=== PATIENT | male | born 1955 | race African-American/Black ===

== ENCOUNTER 2023-04-23 16:19 | Inpatient (IN) ==
[2023-04-23 16:48] LABS: Appearance Urine Clear (Clear); Bilirubin Urine Negative (Negative); Blood Urine 1+ (Negative); Color Urine Yellow; Glucose Urine UA Negative (Negative); Ketones Urine Negative (Negative); Leukocyte Esterase Urine Negative (Negative); Nitrite Urine Negative (Negative); Protein Urine 2+ (Negative); Specific Gravity Urine 1.015 (1.000-1.030); Urobilinogen Urine Negative (Negative)
[2023-04-23 16:54] LABS: Basophils # (auto) 0.02 K/uL (0.00-0.20); Basophils % (auto) 0.3 %; Eosinophils # (auto) 0.33 K/uL (0.00-0.50); Eosinophils % (auto) 5.6 %; Hematocrit (blood only) 26.9 % (42.0-52.0); Hemoglobin 8.5 g/dl (14.0-18.0); Immature Granulocytes # (auto) 0.01 K/uL (0.01-0.20); Immature Granulocytes % (auto) 0.2 %; Lymphocytes # (auto) 2.15 K/uL (1.20-3.40); Lymphocytes % (auto) 36.7 %; Mean Corpuscular Hemoglobin 29.9 pg (25.0-34.0); Mean Corpuscular Hgb Conc 31.6 g/dL (32.0-36.0); Mean Corpuscular Volume 94.7 fL (80.0-100.0); Mean Platelet Volume 10.9 fL (9.4-12.4); Monocytes # (auto) 0.46 K/uL (0.11-0.59); Monocytes % (auto) 7.8 %; Neutrophils # (auto) 2.89 K/uL (1.40-6.50); Neutrophils % (auto) 49.4 %; Platelet Count 273 K/uL (130-400); RDW Standard Deviation 41.9 fL (36.4-46.3); Red Blood Count 2.84 M/uL (4.70-6.10); White Blood Count 5.86 K/ul (4.8-10.8)
[2023-04-23 16:59] LABS: Bacteria Urine Negative (Negative); Epithelial Cell Urine 0-5 /lpf (0-5); Hyaline Casts Urine 0-5 /lpf (0-5); RBC Urine 0-4 /hpf (0-4); WBC Urine 0-5 /hpf (0-5)
[2023-04-23 17:12] LABS: Albumin Level 4.3 gm/dl (3.4-5.0); BUN Creatinine Ratio 9.4 (10-20); Bilirubin,Total 0.3 mg/dl (0.2-1.0); Calcium 8.5 mg/dl (8.6-10.3); Creatinine Clr Calc Pharmacy 7.2 ml/min; Est GFR (African American) 5.6 ml/min; Est GFR (Non-African American) 4.8 ml/min; Globulin 4.1 gm/dl (2.5-4.0); Potassium 5.1 mmol/L (3.5-5.1); Total Protein 8.4 gm/dl (6.0-8.3)
--- NOTE | 2023-04-23 17:35 | Emergency Department Note ---
Impression & Plan Acute renal failure (ARF) ED Provider Note Provider: Tom Teague MD DATE OF SERVICE: 04/23/2023 CHIEF COMPLAINT: Abnormal blood work HISTORY OF PRESENT ILLNESS: Patient is a 68-year-old gentleman history of hypertension noted here recently from [place]. Evidently had some abnormal kidney blood work about 5 months ago but blood work was done in [facility]. Established with [facility] PCP today. On last week or 2 his had some pain in the right ankle but this is abating. Has been using [id number] Aleve. Hydrating well. Maybe a bit of urinary frequency. Had some baseline outpatient blood work completed today. Referred in due to elevated potassium and creatinine. Denies any abdominal pain or back pain. Denies any swelling or breathing issues. 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 PERRL with a mildly disconjugate gaze. NECK: Trachea midline. ENT: Mucous membranes pink and moist. LUNGS: Airway patent. No retractions. Breath sounds clear HEART: Regular rate and rhythm. No chest wall tenderness ABDOMEN: Soft and non-tender, without guarding or rebound. No flank tenderness. SKIN: Acyanotic, warm, dry, without rashes EXTREMITIES: Without swelling, tenderness or deformity NEUROLOGICAL: No focal deficits. No aphasia. No facial droop or slurred speech. Ambulatory. EK bpm normal sinus rhythm. QTc 412. No PVC or PAC. Appears to be early repolarization without reciprocal ST depression with some slight elevation V2 V3 V4. CONTINUOUS CARDIAC MONITORING: was ordered and showed a heart rate of 60s-70s bpm in normal sinus with Patient's laboratory studies and imaging reviewed. Differential includes Renal colic, nephrotic syndrome, nephritis, CKD, UTI, appendicitis, diverticulitis, mesenteric ischemia, aortic pathology, infections, inflammatory bowel disease, PUD, biliary pathology, as well as other pathologies. IMPRESSION/MEDICAL DECISION MAKING: Right ankle without tenderness. No trauma history reported here. No swelling. Doubt DVT. No evidence of fluid overload. Doubt septic joint. Question if his MSK related now has improved. It has improved with naproxen but discussed with him and need to avoid given his significant renal dysfunction which is double checked here. Testing here 5.1 somewhat improved from outpatient labs. Sent for ultrasound to evaluate for any obstructive pathology and further evaluate the renal parenchyma. Do not see need for emergent dialysis but will need further workup for his significant renal dysfunction with creatinine of 10. Bicarb mildly low at 19. Benign abdomen. Discussed with [facility] nephrology and reviewed the labs. Will obtain chest x- ray further recommendation. No significant abnormality noted. Again we will hold losartan and consider amlodipine 10 mg tonight with normal saline drip at 75 mL an hour for hydration. Nephrology recommended this as well as admission. Hospitalist team contacted. Ultrasound of the kidneys pending at this time to evaluate the kidneys and look for obstructive pathology. DIAGNOSIS: Acute renal failure DISPOSITION: Hospitalist will evaluate Patient was agreeable with this plan. Past Med/Surg History Medical History (Updated 04/23/23 @ 21:28 by Tom Teague M.D.) Anemia Sickle cell trait Gout HTN (hypertension) Surgical History (Updated 04/23/23 @ 19:19 by Steph Mace PA-C) No pertinent past surgical history Family History (Updated 04/23/23 @ 19:18 by Steph Mace PA-C) Father Alive and well Social History (Updated 04/23/23 @ 19:18 by Steph Mace PA-C) Smoking Status: Never smoker Hx Alcohol Use: Yes Alcohol Intake Frequency Comment: rare Hx Substance Use: No Preferred Language: Latvian Communication Ability Comment: From [facility] marital status: Current Living Situation: Spouse Feels Safe at Home: Yes Allergies Allergies Allergy/AdvReac Type Severity Reaction Status Date / Time No Known Allergies Allergy Unverified 04/23/23 18:07 Home Meds Home Medications Medication Instructions Recorded Confirmed losartan 50 mg-hydrochlorothiazide 1 tab PO DAILY 04/23/23 04/23/23 12.5 mg tablet naproxen sodium 220 mg capsule 220 mg PO BID PRN Pain 04/23/23 04/23/23 Results & Data (ED) Vital Signs Vital Signs - 24 hr 04/23/23 16:24 04/23/23 17:29 04/23/23 17:37 Temperature 36.6 C Temperature Source Temporal Artery Scan Pulse Rate 74 67 Pulse Rate [Apical] 68 Pulse Rate from SpO2 Sensor Pulse Rhythm [Apical] Regular Respiratory Rate 18 18 Respiratory Effort / Characteristics Non-Labored Spontaneous Respiratory Depth Normal Respiratory Pattern Regular Blood Pressure 175/96 H Blood Pressure [Right Arm] 158/95 H Blood Pressure Mean 122 Blood Pressure Mean [Right Arm] 116 Pulse Oximetry 100 100 Oxygen Delivery Method Room Air Room Air Sepsis Recent Fever Within 48 Hours No Sepsis New/Unexplained Change in Mental Status N/A Sepsis Action Taken by Nursing No Action Required 04/23/23 17:38 04/23/23 18:00 Temperature Temperature Source Pulse Rate 68 70 Pulse Rate [Apical] Pulse Rate from SpO2 Sensor 68 70 Pulse Rhythm [Apical] Respiratory Rate 17 16 Respiratory Effort / Characteristics Respiratory Depth Respiratory Pattern Blood Pressure Blood Pressure [Right Arm] Blood Pressure Mean Blood Pressure Mean [Right Arm] Pulse Oximetry 100 100 Oxygen Delivery Method Sepsis Recent Fever Within 48 Hours Sepsis New/Unexplained Change in Mental Status Sepsis Action Taken by Nursing Laboratory Data 04/23/23 16:36 04/23/23 16:36 Lab Results 04/23/23 04/23/23 Range/Units 16:36 16:40 WBC 5.86 (4.8-10.8) K/ul RBC 2.84 L (4.70-6.10) M/uL Hgb 8.5 L (14.0-18.0) g/dl Hct 26.9 L (42.0-52.0) % MCV 94.7 (80.0-100.0) fL MCH 29.9 (25.0-34.0) pg MCHC 31.6 L (32.0-36.0) g/dL RDW Std Deviation 41.9 (36.4-46.3) fL RDW Coeff of Tomasz 12.0 (11.5-14.5) % Plt Count 273 (130-400) K/uL MPV 10.9 (9.4-12.4) fL Immature Gran % (Auto) 0.2 % Neut % (Auto) 49.4 % Lymph % (Auto) 36.7 % [place] % (Auto) 7.8 % Eos % (Auto) 5.6 % Baso % (Auto) 0.3 % Neut # (Auto) 2.89 (1.40-6.50) K/uL Lymph # (Auto) 2.15 (1.20-3.40) K/uL [place] # (Auto) 0.46 (0.11-0.59) K/uL Eos # (Auto) 0.33 (0.00-0.50) K/uL Baso # (Auto) 0.02 (0.00-0.20) K/uL Immature Gran # (Auto) 0.01 (0.01-0.20) K/uL Sodium 138 (136-145) mmol/L Potassium 5.1 (3.5-5.1) mmol/L Chloride 107 (98-107) mmol/L Carbon Dioxide 19 L (21-32) mmol/L Anion Gap 12 H (3-11) BUN 94 H (6-23) mg/dl Creatinine 10.01 H* (0.6-1.4) mg/dl Est Cr Clr Drug Dosing 7.2 ml/min Est GFR ( Amer) 5.6 ml/min Est GFR (Non-Af Amer) 4.8 ml/min BUN/Creatinine Ratio 9.4 L (10-20) Glucose 152 H (70-99(Fasting)) mg/dl Calcium 8.5 L (8.6-10.3) mg/dl Iron 65 (35-175) mcg/dl Unsaturated IBC 174 (155-355) mcg/dl Transferrin 169 L (200-360) mg/dl Ferritin 318.4 (8-388) ng/ml Total Bilirubin 0.3 (0.2-1.0) mg/dl AST 11 L (13-39) U/L ALT 9 (7-52) U/L Alkaline Phosphatase 155 H (34-104) U/L Total Protein 8.4 H (6.0-8.3) gm/dl Albumin 4.3 (3.4-5.0) gm/dl Globulin 4.1 H (2.5-4.0) gm/dl Albumin/Globulin Ratio 1.0 (0.9-2) Lipase 181 H (11-82) U/L Vitamin B12 274 (180-914) pg/ml Folate 9.41 (>5.38) ng/ml Urine Color Yellow Urine Appearance Clear (Clear) Urine pH 6.0 (4.5-7.5) Ur Specific [place] 1.015 (1.000-1.030) Urine Protein 2+ H (Negative) Urine Glucose (UA) Negative (Negative) Urine Ketones Negative (Negative) Urine Blood 1+ H (Negative) Urine Nitrite Negative (Negative) Urine Bilirubin Negative (Negative) Urine Urobilinogen Negative (Negative) Ur Leukocyte Esterase Negative (Negative) Urine RBC 0-4 (0-4) /hpf Urine WBC 0-5 (0-5) /hpf Ur Epithelial Cells 0-5 (0-5) /lpf Urine Bacteria Negative (Negative) Hyaline Casts 0-5 (0-5) /lpf Ur Random Creatinine 99.8 mg/dl U Random Total Protein 103.0 H (0-11.9) mg/dl Protein/Creatinin Ratio 1.0 H (0-0.2) Administered Medications Sodium Chloride (Nss) 1,000 mls @ 75 mls/hr IV .[id number] JOAQUIN Stop: 05/23/23 17:44 Last Admin: 04/23/23 17:54 Dose: 75 mls/hr Documented By: FRANTZ Discontinued Medications Amlodipine Besylate (Amlodipine Besylate 5 Mg Tab) 5 mg PO NOW ONE Stop: 04/23/23 19:18 Last Admin: 04/23/23 19:37 Dose: 5 mg Documented By: FRANTZ Imaging Data Radiologist's Impression: Chest X-Ray 04/23/23 17:43 XR chest 1V portable HISTORY: Acute renal failure. COMPARISON: None. FINDINGS: The lungs are clear. The cardiac silhouette is top normal in size. There are low lung volumes. No pleural effusions. No pneumothorax. IMPRESSION: No acute process. ACT 112: Negative or not required by law. Electronically signed by: Armando Gill M.D. 04/23/2023 7:19 PM Discharge Plan Visit Data Chief Complaint: Abnormal Labs/Diagnostic Testing Stated Complaint: HAD LABS DONE, ABNORMAL RESULTS, RT LEG PAIN ED Provider: Tom Teague Discharge Problem: Acute renal failure (ARF) Patient Disposition: Being Evaluated by Hospitalist Discharge Instructions Interventions: ED Discharge Assessment Last Done: 04/23/23 21:20 Discharge Problem: Acute renal failure (ARF) Qualifiers: Acute renal failure type: unspecified Qualified Code(s): N17.9 - Acute kidney failure, unspecified
[2023-04-23] MEDS: SODIUM CHLORIDE 0.9% 1,000 ML IV SCH (17:54)
--- NOTE | 2023-04-23 18:29 | History & Physical Report ---
Date of Service April 23, 2023 Assessment & Plan (1) Acute renal failure (ARF): (2) Anemia: (3) HTN (hypertension): (4) Sickle cell trait: Plan This is a 68-year-old male who has significant past medical history of HTN, sickle cell carrier and gout who presents to ED at referral of PCP due to JASON. Acute Renal Failure admit to med tele uncertain etiology suspect intrinsic cause vs medical renal disease but will r/o other etiologies Obtain urine prot/cr, SPEP, UPEP, ANCA serologies obtain Renal US and Renal Duplex to r/o obstructive etiology and RAMIRO repeat UA in am to eval for blood consult nephrology Will D/C Losartan/HCTZ and avoid NSAIDS IVF 75cc/hr as directed by nephrology initiate amlodipine for blood pressure control making urine, no signs of uremia Anemia anemia panel ordered and pending suspect related to underlying renal disease HTN elevated in ED d/c losartan/hctz initiate amlodipine, monitor Sickle Cell Trait Hyperglycemia on admitting, nonfasting labs obtain a1c and lipid panel in a.m. DVT ppx: SQ Heparin FULL CODE Dispo: expect pt to remain hospitalized while JASON work up in progress PCP: DR. Raissa Metcalf Pt was seen and examined in collaboration with Dr. Carlisle, please see addendum A total of 76 minutes was spent coordinating, documenting, and providing care for this patient excluding time spent in the performance of separately billed services. This included personally viewing all current laboratories and imaging studies, medication reconciliation, outpatient chart review, and discussion with specialists. History of Present Illness Chief Complaint: Referred by PCP due to JASON Primary Care Provider: Dr. Raissa Valenzuela This is a 68-year-old male who has significant past medical history of HTN, sickle cell carrier and gout who presents to ED at referral of PCP due to JASON. Patient and his are from [facility]. They are currently in the [place] while his works on her post doctorate in [employer]. He came over to the [place] 1 month ago. states approximately 5 months ago they were told his kidneys were, "not right." They were lost to follow-up as for the past 3 months they have been in [place] taking care of their son who required bone marrow bx. He has been feeling well as of late. 2 weeks ago he was having right ankle and foot pain and therefore his picked up an [id number] bottle of naproxen that he was using as needed for pain. He denies any fever, chills, sweats, lightheadedness, dizziness, weight loss, chest pain, shortness of breath, nausea, vomiting, abdominal pain, dysuria, melena, hematochezia, hematuria, diarrhea or constipation. In ED patient had a notable anemia for 8.5 and 26.9. His chemistry panel was abnormal including a BUN of 94, creatinine 10.01, anion gap 12, glucose 152, calcium 8.5, total protein high at 8.4, globulin gap elevated at 4.1 and urinalysis consistent with protein and blood. Allergies Allergy/AdvReac Type Severity Reaction Status Date / Time No Known Allergies Allergy Unverified 04/23/23 18:07 Home Medications Medication Instructions Recorded Confirmed Type losartan 50 mg-hydrochlorothiazide 1 tab PO DAILY 04/23/23 04/23/23 History 12.5 mg tablet naproxen sodium 220 mg capsule 220 mg PO BID PRN Pain 04/23/23 04/23/23 History Past Med/Surg History Medical History (Updated 04/24/23 @ 16:59 by Penelope Randall MD, PhD) Anemia Sickle cell trait Gout HTN (hypertension) Surgical History (Updated 04/23/23 @ 19:19 by Steph Mace PA-C) No pertinent past surgical history Family History (Updated 04/23/23 @ 19:18 by Steph Mace PA-C) Father Alive and well Social History (Updated 04/23/23 @ 19:18 by Steph Mace PA-C) Smoking Status: Never smoker Hx Alcohol Use: Yes Alcohol Intake Frequency Comment: rare Hx Substance Use: No Preferred Language: Indonesian Communication Ability: Effective Communication Ability Comment: From [facility] 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 Required: No Beliefs That Will Affect Care: None marital status: Current Living Situation: Spouse Feels Safe at Home: Yes Safety Concerns: Feels Safe At This Time Assistive Devices: Glasses Review of Systems Review of Systems: All systems reviewed & are unremarkable except as noted in HPI & below Physical Exam Physical Exam: Constitutional: WD/WN, vitals as above, NAD, sitting up in bed, pleasant, conversing easily Head: Normocephalic, Atraumatic Eyes: PERRL, conjunctivae normal, anicteric sclerae ENMT: external ear and nose normal, oropharynx normal Neck: trachea midline, no thyromegaly normal visual inspection Respiratory: normal respiratory effort, lungs clear to auscultation, no wheeze, rales, rhonchi. Normal insp/exp effort, no accessory muscle use Cardiovascular: RRR, no murmur, no edema Vessels: no JVD or carotid bruit Chest: normal inspection of chest Abdomen: Protuberant, normal bowel sounds, soft, nontender, no hepatosplenomegaly Musculoskeletal: no cyanosis or clubbing, extremities motor strength 5/5 Skin: no rashes, warm and dry normal turgor Neurologic: PERRL, EOMI, accommodation nl, no face palsy, no dysarthria CN's II-XI intact bilaterally and moves all extremities Psychiatric: A+Ox3, euthymic affect Lymphatic: no cervical or axillary lymphadenopathy : deferred Results & Data Results & Data Vital Signs (Past 12 Hours) Vital Signs Temp Pulse Pulse Resp BP BP Pulse Ox 04/23/23 17:37 67 04/23/23 17:29 68 18 158/95 H 100 04/23/23 16:24 36.6 C 74 18 175/96 H 100 O2 Del Method 04/23/23 17:37 04/23/23 17:29 Room Air 04/23/23 16:24 Room Air Laboratory Results I have independently reviewed and interpreted patient's admitting labs including CBC, CMP, lipase, UA. Medications Administered Medication List Sodium Chloride (Nss) 1,000 mls @ 75 mls/hr IV .[id number] JOAQUIN Stop: 05/23/23 17:44 Last Admin: 04/23/23 17:54 Dose: 75 mls/hr Documented By: FRANTZ ECG Rate (beats per minute): 68 Rhythm: normal sinus Additional Comments: elevated j point v2-4 COVID-19 Results Results COVID-19 Adm Lab Results: RBC 2.41 M/uL (4.70-6.10) L 04/24/23 WBC 5.09 K/ul (4.8-10.8) 04/24/23 Hgb 7.2 g/dl (14.0-18.0) L 04/24/23 Hct 22.5 % (42.0-52.0) L 04/24/23 Plt Count 229 K/uL (130-400) 04/24/23 Neutrophils (%) (Auto) 60.5 % 04/24/23 Lymphocytes (%) (Auto) 23.0 % 04/24/23 Monocytes # (Auto) 0.50 K/uL (0.11-0.59) 04/24/23 Eosinophils # (Auto) 0.30 K/uL (0.00-0.50) 04/24/23 Immature Granulocyte % (Auto) 0.4 % 04/24/23 Neutrophils # (Auto) 3.08 K/uL (1.40-6.50) 04/24/23 Lymphocytes # (Auto) 1.17 K/uL (1.20-3.40) L 04/24/23 Monocytes # (Auto) 0.50 K/uL (0.11-0.59) 04/24/23 Eosinophils # (Auto) 0.30 K/uL (0.00-0.50) 04/24/23 Basophils # (Auto) 0.02 K/uL (0.00-0.20) 04/24/23 Immature Granulocyte # (Auto) 0.02 K/uL (0.01-0.20) 4 Red Blood Cell Morphology Unremarkable 04/24/23 Na 138 mmol/L (136-145) 04/24/23 K 4.8 mmol/L (3.5-5.1) 04/24/23 Cl 109 mmol/L (98-107) H 04/24/23 CO2 18 mmol/L (21-32) L 04/24/23 Anion Gap 11 (3-11) 04/24/23 BUN 97 mg/dl (6-23) H 04/24/23 Creatinine 9.88 mg/dl (0.6-1.4) H* 04/24/23 BUN/Creatinine Ratio 9.8 (10-20) L 04/24/23 Glucose Level 85 mg/dl (70-99(Fasting)) 04/24/23 Ca 8.1 mg/dl (8.6-10.3) L 04/24/23 Phosphorus Level 5.6 mg/dl (2.5-4.9) H 04/24/23 Total Bilirubin 0.3 mg/dl (0.2-1.0) 04/24/23 AST/SGOT 11 U/L (13-39) L 04/24/23 ALT/SGPT 9 U/L (7-52) 04/24/23 Alkaline Phosphatase 138 U/L (34-104) H 04/24/23 Total Protein 7.2 gm/dl (6.0-8.3) 04/24/23 Albumin 3.7 gm/dl (3.4-5.0) 04/24/23 Globulin 3.5 gm/dl (2.5-4.0) 04/24/23 Albumin/Globulin Ratio 1.1 (0.9-2) 04/24/23 Ferritin 318.4 ng/ml (8-388) 04/23/23 Triglycerides Level 97 mg/dl (0-150) 04/24/23 Chest X-Ray 04/23/23 Code Status & VTE Plan Code Status FULL CODE VTE Prophylaxis Plan VTE Prophylaxis will be ordered: Yes Supervising Physician Co-Signing Physician Notes delayed entry date of service noted above Attending Addendum: care coordinated with JANELLE Mace please refer to her notes for full details, I agree with her notes patient seen and examined, records reviewed by myself as well diagnoses and plan of care as per JANELLE Mace's notes Dax Carlisle MD (1) Acute renal failure (ARF) Acute renal failure type: unspecified Qualified Code(s): N17.9 - Acute kidney failure, unspecified
[2023-04-23] MEDS ORDERED: amLODIPine BESYLATE 5 MG TAB PO ONE (19:17)
--- NOTE | 2023-04-23 19:21 | XRay Report ---
XR chest 1V portable HISTORY: Acute renal failure. COMPARISON: None. FINDINGS: The lungs are clear. The cardiac silhouette is top normal in size. There are low lung volum es. No pleural effusions. No pneumothorax. IMPRESSION: No acute process. ACT 112: Negative or not required by law. Electronically signed by: Armando Gill M.D. 04/23/2023 7:19 PM
[2023-04-23 19:29] LABS: Ferritin 318.4 ng/ml (8-388)
[2023-04-23 19:32] LABS: Folate (Folic Acid),Ser orPlas 9.41 ng/ml (>5.38)
[2023-04-23 20:32] LABS: Creatinine Urine Random 99.8 mg/dl
[2023-04-23] MEDS ORDERED: POLYETHYLENE (MIRALAX) 17 GM PACK PO PRN (21:21)
[2023-04-23] MEDS ORDERED: ONDANSETRON INJ 2 MG/ML 2 ML VIAL IV PRN (21:21)
[2023-04-23] MEDS ORDERED: ACETAMINOPHEN 325 MG TAB PO PRN (21:21)
[2023-04-23] MEDS: HEPARIN SOD 5,000 UNIT/0.5 ML VIAL SQ SCH (22:49)
--- NOTE | 2023-04-24 03:43 | Ultrasound Report ---
Exam(s): US RENAL EXAM: US Retroperitoneal Limited, Renal CLINICAL HISTORY: Renal failure. TECHNIQUE: Real-time limited ultrasound of the retroperitoneum with image documentation. COMPARISON: No relevant prior studies available. FINDINGS: Right kidney: The right kidney measures 10 cm. There is increased echogenicity of the right kidney. There is a simple appearing right renal cyst, no follow-up is needed. No stones. No hydronephrosis. Left kidney: There is increase echogenicity of the left kidney. The left kidney measures 9.6 cm. There is a small amount of nonspecific left perinephric fluid. Simple appearing left renal cysts are present, no follow-up is needed. No stones. Other findings: Incidentally noted fatty infiltration of the liver. IMPRESSION: 1. No hydronephrosis. 2. Increased echogenicity of the cortex of the kidneys is most consistent with chronic medical renal disease. 3. There is a small amount of nonspecific left perinephric fluid. 4. Incidentally noted fatty infiltration of the liver. Electronically signed by: Hazel Hamilton MD 04/24/23 03:42 AM
[2023-04-24 05:20] LABS: Basophils # (auto) 0.02 K/uL (0.00-0.20); Basophils % (auto) 0.4 %; Eosinophils % (auto) 5.9 %; Hematocrit (blood only) 22.5 % (42.0-52.0); Hemoglobin 7.2 g/dl (14.0-18.0); Immature Granulocytes # (auto) 0.02 K/uL (0.01-0.20); Immature Granulocytes % (auto) 0.4 %; Lymphocytes # (auto) 1.17 K/uL (1.20-3.40); Mean Corpuscular Hemoglobin 29.9 pg (25.0-34.0); Mean Corpuscular Volume 93.4 fL (80.0-100.0); Mean Platelet Volume 10.9 fL (9.4-12.4); Monocytes % (auto) 9.8 %; Neutrophils # (auto) 3.08 K/uL (1.40-6.50); Neutrophils % (auto) 60.5 %; Platelet Count 229 K/uL (130-400); RDW Coefficient of Variation 11.9 % (11.5-14.5); RDW Standard Deviation 40.9 fL (36.4-46.3); Red Blood Count 2.41 M/uL (4.70-6.10); White Blood Count 5.09 K/ul (4.8-10.8)
[2023-04-24 05:23] LABS: Albumin Globulin Ratio 1.1 (0.9-2); Albumin Level 3.7 gm/dl (3.4-5.0); BUN Creatinine Ratio 9.8 (10-20); Bilirubin,Total 0.3 mg/dl (0.2-1.0); Calcium 8.1 mg/dl (8.6-10.3); Chol HDL Ratio 6.6 (0-5); Creatinine Clr Calc Pharmacy 7.3 ml/min; Est GFR (African American) 5.7 ml/min; Est GFR (Non-African American) 4.9 ml/min; Globulin 3.5 gm/dl (2.5-4.0); Magnesium 2.4 mg/dl (1.7-2.4); Phosphorus 5.6 mg/dl (2.5-4.9); Potassium 4.8 mmol/L (3.5-5.1); Total Protein 7.2 gm/dl (6.0-8.3)
[2023-04-24 06:09] LABS: RBC Morphology Unremarkable
[2023-04-24] MEDS: HEPARIN SOD 5,000 UNIT/0.5 ML VIAL SQ SCH ×3 (06:25→21:21)
--- NOTE | 2023-04-24 07:38 | Ultrasound Report ---
US duplex renal artery CLINICAL HISTORY: Hypertension. Assess for renal artery stenosis. COMPARISON STUDY: Renal ultrasound 04/23/2023. FINDINGS: The patient's low velocity within the distal right renal artery was 80 cm/s and the distal left renal artery was 70 cm/s. The visualized bilateral renal veins are patent. Of note, the mid bila teral renal arteries were not well visualized due to overlying bowel gas. Resistive indices of the bi lateral renal arcuate arteries are within normal limits measuring less than 0.75. IMPRESSION: No evidence for renal artery stenosis. ACT 112: Negative or not required by law. Electronically signed by: Armando Gill M.D. 04/24/2023 7:37 AM
[2023-04-24] MEDS: SODIUM CHLORIDE 0.9% 1,000 ML IV SCH (09:05)
[2023-04-24] MEDS: amLODIPine BESYLATE 5 MG TAB PO SCH (09:05)
[2023-04-24 09:36] LABS: Appearance Urine Clear (Clear); Bacteria Urine Automated Negative (Negative); Bilirubin Urine Negative (Negative); Blood Urine Trace (Negative); Cast Urine Automated 0 /lpf (0-5); Color Urine Yellow; Epithelial Cell Urine Auto 0-5 /lpf (0-5); Glucose Urine UA Negative (Negative); Ketones Urine Negative (Negative); Leukocyte Esterase Urine Negative (Negative); Nitrite Urine Negative (Negative); Protein Urine 1+ (Negative); RBC Urine Automated 0-4 /hpf (0-4); Urobilinogen Urine Negative (Negative); WBC Urine Automated 0 /hpf (0-5)
[2023-04-24 10:35] LABS: Estimated Average Glucose 97 mg/dl
--- NOTE | 2023-04-24 11:27 | Nephrology Consultation ---
Date of Consultation April 24, 2023 Assessment & Plan (1) Acute renal failure (ARF): severe nonoliguric acute on presumably chronic renal disease based on hx and renal u/s results. baseline creatinine unknown. differential here is broad. FSGS is common in pts of descent; other glomerulopathies associated with nephritic syndrome include potentially HBV/HCV related GNs or less likely lupus. May have JASON from NSAID use in the setting of already worsened renal function > this could include minimal change disease, membranous nephropathy; or simply AIN. Sickle cell trait has been a/w higher rates of CKD, albuminuria, worsening GFR in Americans compared to those w/o SCT. Could have sickle cell nephropathy potentially >> relative hyposthenuria at admission noted. With the constellation of HTN, gout, CKD, lead nephropathy, while unlikely compared to other etiologies of worsened renal function, must be considered. -protein/creat ratio still pending and will resend -f/u pending spep, upep, ANCA serologies -will also check complement, hepatitis panel, ESR, serum lead level, uric acid; if all of above negative HIV test should be considered -cannot r/o need for renal biopsy but need is not urgent at this time > not uremic, acidosis present but not severe, no volume overload on exam -continue to avoid nsaids -daily bmp -continue renal diet, no fluid limit for now -strict I/O, angélica UOP tracking Care coordinated w/ Dr Carlisle (2) HTN (hypertension): acceptable control currently -continue amlodipine -avoid THOR/ARB for now; continue to hold diuretic -stop IV fluids (3) Anemia: dropping hgb in pt w/ sickle cell trait. A1c assay shows 35% hgb variant, possibly hgb S. Transferrin sat calculates to 37%. He had never had GI scopes; no known hx of colorectal diseases. Recommend /have ordered the following tests: -hemoglobin electrophoresis -LDH -peripheral smear -parvovirus 19 assays -fecal occult blood test -transfuse for hgb <7 or sx -daily hgb; may need to avoid thor/arb which can suppress hgb (4) Sickle cell trait: see above re anemia and CKD (5) CKD (chronic kidney disease): likely CKD given u/s findings and history of being told several months ago that renal function was compromised; baseline unknown History of Present Illness Reason for Consultation: JASON, anemia Requesting Physician: Dr Carlisle Attending Physician: Dax Carlisle MD History of Present Illness 68-year-old male whom I am asked to evaluate for acute kidney injury and anemia was admitted last evening after being sent by PCP due to abnormal labs. Past medical history include hypertension, gout, sickle cell carrier. Patient [place] the [place] from [facility] approximately 1 month back. Apparently he was told 5 months ago in [facility] that his kidneys were functioning well. His PCP in [facility] gave him a month of a medication (he does not recall name) to improve renal function. He and his then spent the past 3 months prior to coming here in [facility] taking care of their son who required a bone marrow transplant for sickle cell disease. in the concern for his son, the pt forgot to follow up with PCP about his kidneys after taking the medication. The patient and his also had a daughter who from [facility]. He has never had HTN urgency. Did have at least 1 pRBC transfusion remotely for reasons he cannot recall. No FH of renal disease. Not on xanthine oxidase inhibitors. For gout and other musculoskeletal pain, the pt take nsaids periodically. For about 2 weeks prior to admission the patient had been on cataflam (an OTC NSAID from [facility] per his x 1 week) then 1 wk of naproxen for right ankle and foot pain. He is confident this pain was not a gout attack; pain has since resolved. His presenting creatinine yesterday afternoon was 10 with hemoglobin 8.5. This morning hemoglobin is 7.2 with creatinine 9.9. BUN is in the 90s. Carbon dioxide levels 18 this morning and 19 yesterday. Serum albumin 3.7. Urinalysis notable for specific gravity 1010 with 2+ protein and 1+ blood in the urine. On presentation, NSAIDs and outpatient antihypertensives were held. He was given normal saline and amlodipine. Renal ultrasound and renal vascular duplex were essentially negative. overall he does not feel unwell. no recent weight changes, no n/v, no loss of appetite, no edema, no flank pain, no change in functional status or exertional dyspnea, no chest pain, no gross hematuria or change in UOP; no dysuria or gross hematuria, no fever, no rash, no recent diarrheal illness. pain in R ankle/foot has resolved. Allergies Allergy/AdvReac Type Severity Reaction Status Date / Time No Known Allergies Allergy Unverified 04/23/23 18:07 Home Medications Medication Instructions Recorded Confirmed Type losartan 50 mg-hydrochlorothiazide 1 tab PO DAILY 04/23/23 04/23/23 History 12.5 mg tablet naproxen sodium 220 mg capsule 220 mg PO BID PRN Pain 04/23/23 04/23/23 History Patient History Medical History (Updated 04/24/23 @ 16:59 by Penelope Randall MD, PhD) Anemia Sickle cell trait Gout HTN (hypertension) Surgical History (Updated 04/23/23 @ 19:19 by Steph Mace PA-C) No pertinent past surgical history Family History (Updated 04/23/23 @ 19:18 by Steph Mace PA-C) Father Alive and well Social History (Updated 04/23/23 @ 19:18 by Steph Mace PA-C) Smoking Status: Never smoker Hx Alcohol Use: Yes Alcohol Intake Frequency Comment: rare Hx Substance Use: No Preferred Language: Maltese Communication Ability: Effective Communication Ability Comment: From [employer] Conservation[employer] Required: No Beliefs That Will Affect Care: None marital status: Current Living Situation: Spouse Feels Safe at Home: Yes Safety Concerns: Feels Safe At This Time Assistive Devices: Glasses Review of Systems 2 Review of Systems: All systems reviewed & are unremarkable except as noted in HPI & below Physical Exam 2 Constitutional: well developed and well nourished Eyes: EOM intact bilaterally ENMT: Ears: no external ear abnormality Nose: no external nose abnormality Mouth: + dry oral mucous membranes Neck: no nuchal rigidity Respiratory: normal respiratory effort Auscultation: + diminished lung sounds Cardiovascular: Rate/Rhythm: regular rate and regular rhythm Heart Sounds: + murmur (soft SM) Extremities: no edema Gastrointestinal (Abdomen): Inspection/Auscultation: normal bowel sounds P ercussion/Palpation: abdomen soft and + fluid wave; abdomen nontender Musculoskeletal: Extremities: strength 5/5 throughout Skin: no rashes, warm and dry Neurologic: patel, fluent speech, no tremor Psychiatric: Orientation: alert and oriented x 3 Results & Data Vital Signs (Past 12 Hours) Vital Signs Temp Pulse Pulse Resp BP BP Pulse Ox 04/24/23 09:55 36.8 C 85 20 141/89 H 100 04/24/23 07:30 04/24/23 07:16 80 04/24/23 06:00 74 17 96 04/24/23 05:30 78 18 92 04/24/23 05:00 76 19 98 04/24/23 04:30 76 18 97 04/24/23 04:00 141/98 H 04/24/23 04:00 78 26 H 97 04/24/23 03:30 75 22 96 04/24/23 03:00 73 16 100 04/24/23 02:30 76 20 97 04/24/23 02:00 72 17 98 04/24/23 01:30 77 19 99 04/24/23 01:00 74 21 99 04/24/23 00:36 72 18 178/98 H 99 04/24/23 00:30 178/98 H 04/24/23 00:30 76 16 100 Pulse Ox O2 Del Method O2 Del Method 04/24/23 09:55 Room Air 04/24/23 07:30 100 Room Air 04/24/23 07:16 04/24/23 06:00 04/24/23 05:30 04/24/23 05:00 04/24/23 04:30 04/24/23 04:00 04/24/23 04:00 04/24/23 03:30 04/24/23 03:00 04/24/23 02:30 04/24/23 02:00 04/24/23 01:30 04/24/23 01:00 04/24/23 00:36 04/24/23 00:30 04/24/23 00:30 Laboratory Results 04/24/23 04:23 04/24/23 04:23 HbA1c analysis flags for 35% variant hemoglobin, possibly c/w hemoglobin S Diagnostic Findings renal u/s Right kidney: The right kidney measures 10 cm. There is increased echogenicity of the right kidney. There is a simple appearing right renal cyst, no follow-up is needed. No stones. No hydronephrosis. Left kidney: There is increase echogenicity of the left kidney. The left kidney measures 9.6 cm. There is a small amount of nonspecific left perinephric fluid. Simple appearing left renal cysts are present, no follow-up is needed. No stones. Other findings: Incidentally noted fatty infiltration of the liver. IMPRESSION: 1. No hydronephrosis. 2. Increased echogenicity of the cortex of the kidneys is most consistent with chronic medical renal disease. 3. There is a small amount of nonspecific left perinephric fluid. 4. Incidentally noted fatty infiltration of the liver Renal artery duplex FINDINGS: The patient's low velocity within the distal right renal artery was 80 cm/s and the distal left renal artery was 70 cm/s. The visualized bilateral renal veins are patent. Of note, the mid bilateral renal arteries were not well visualized due to overlying bowel gas. Resistive indices of the bilateral renal arcuate arteries are within normal limits measuring less than 0.75. IMPRESSION: No evidence for renal artery stenosis. (1) Acute renal failure (ARF) Acute renal failure type: unspecified Qualified Code(s): N17.9 - Acute kidney failure, unspecified
--- NOTE | 2023-04-24 16:51 | Hospitalist Progress Note ---
Date of Service April 24, 2023 Assessment & Plan (1) Acute renal failure (ARF): (2) Anemia: (3) HTN (hypertension): (4) Sickle cell trait: Plan This is a 68-year-old male who has significant past medical history of HTN, sickle cell carrier and gout who presents to ED at referral of PCP due to JASON. Acute Renal Failure uncertain etiology suspect intrinsic cause vs medical renal disease but will r/o other etiologies urine prot/cr, SPEP, UPEP, ANCA serologies: pending Renal US and Renal Duplex: unrevealing repeat UA in am to eval for blood: (+) 1 protein, trace blood D/C Losartan/HCTZ Given IVF 75cc/hr as directed by nephrology Creatinine 10--> 9.8 Awaiting further recommendations by nephrology service Anemia suspect related to underlying renal disease Iron 65, transferrin 169, ferritin 318 Vitamin B12 and folate normal No signs of GI bleed HTN elevated in ED d/c losartan/hctz initiate amlodipine 5 mg daily BP improving Monitor Sickle Cell Trait Hyperglycemia A1c 5 point DVT ppx: SQ Heparin FULL CODE Dispo: expect pt to remain hospitalized while JASON work up in progress PCP: DR. Raissa Metcalf Disposition Anticipate discharge to home medically Admission and Anticipated Discharge Date Admission Date: April 23, 2023 Subjective ff up for acute kidney failure on CKD?, etc Resting in bed, comfortable, no distress States he feels fine overall no chest pain, dyspnea, palpitations, dizziness States he is voiding well Denies abdominal pain No hematuria No other new symptoms Review of Systems Review of Systems: all noted and negative except for above Physical Exam Physical Exam: General- oriented x 3, not in distress, speaks in sentences with no effort or accessory muscle use Eyes- anicteric Neck- no JVD Lungs- clear breath sounds bilaterally, no rales/wheezes Heart- normal rate, regular rhythm; no murmurs Abdomen- normal bowel sounds, nondistended, soft, nontender Extremities- no pretibial edema, no calf tenderness Neuro- alert, oriented x 3; no gross focal neurologic deficits Skin- warm & dry Results & Data Results & Data Vital Signs (Past 12 Hours) Vital Signs Temp Pulse Pulse Resp BP Pulse Ox Pulse Ox 04/24/23 15:09 36.9 C 79 18 133/77 100 04/24/23 15:00 83 04/24/23 13:45 78 04/24/23 13:31 36.7 C 80 16 149/81 H 96 04/24/23 09:55 36.8 C 85 20 141/89 H 100 04/24/23 07:30 100 04/24/23 07:16 80 04/24/23 06:00 74 17 96 04/24/23 05:30 78 18 92 04/24/23 05:00 76 19 98 O2 Del Method O2 Del Method 04/24/23 15:09 Room Air 04/24/23 15:00 04/24/23 13:45 04/24/23 13:31 Room Air 04/24/23 09:55 Room Air 04/24/23 07:30 Room Air 04/24/23 07:16 04/24/23 06:00 04/24/23 05:30 04/24/23 05:00 all noted and reviewed including below (1) Acute renal failure (ARF) Acute renal failure type: unspecified Qualified Code(s): N17.9 - Acute kidney failure, unspecified
[2023-04-24 18:07] LABS: Uric Acid 9.4 mg/dl (2.6-7.2)
[2023-04-24 22:16] LABS: Creatinine Urine Random 77.1 mg/dl; Protein Creatinine Ratio Urine 0.6 (0-0.2); Total Protein Urine Random 50.1 mg/dl (0-11.9)
[2023-04-25] MEDS: HEPARIN SOD 5,000 UNIT/0.5 ML VIAL SQ SCH ×2 (05:19→14:12)
--- NOTE | 2023-04-25 06:09 | Electrocardiogram Report ---
Test Reason : Blood Pressure : / mmHG Vent. Rate : 068 BPM Atrial Rate : 068 BPM P-R Int : 140 ms QRS Dur : 084 ms QT Int : 396 ms P-R-T Axes : 019 004 012 degrees QTc Int : 421 ms Normal sinus rhythm ST elevation, consider early repolarization Borderline ECG No previous ECGs available Confirmed by Desmond Quiroga ([id number]) on 04/25/2023 6:09:21 AM Referred By: REFERRED SELF Confirmed By:Desmond Quiroga
[2023-04-25] MEDS: amLODIPine BESYLATE 5 MG TAB PO SCH (08:03)
[2023-04-25 08:24] LABS: Hematocrit (blood only) 22.9 % (42.0-52.0); Hemoglobin 7.3 g/dl (14.0-18.0); Mean Corpuscular Hemoglobin 30.2 pg (25.0-34.0); Mean Corpuscular Hgb Conc 31.9 g/dL (32.0-36.0); Mean Corpuscular Volume 94.6 fL (80.0-100.0); Mean Platelet Volume 11.1 fL (9.4-12.4); Platelet Count 229 K/uL (130-400); RDW Standard Deviation 41.5 fL (36.4-46.3); Red Blood Count 2.42 M/uL (4.70-6.10); White Blood Count 4.63 K/ul (4.8-10.8)
[2023-04-25 08:56] LABS: BUN Creatinine Ratio 9.8 (10-20); Creatinine Clr Calc Pharmacy 6.8 ml/min; Est GFR (African American) 5.2 ml/min; Est GFR (Non-African American) 4.5 ml/min; Magnesium 2.3 mg/dl (1.7-2.4); Phosphorus 5.3 mg/dl (2.5-4.9); Potassium 5.1 mmol/L (3.5-5.1)
--- NOTE | 2023-04-25 08:57 | Nephrology Progress Note ---
Date of Service April 25, 2023 Assessment & Plan (1) Acute renal failure (ARF): Plan: severe and slowly worsening nonoliguric acute on presumably chronic renal disease based on hx and renal u/s results. baseline creatinine unknown. 600 mg proteinuria on spot ratio and 1.5L UOP 04/24 plus at least one uncounted void. ESR only slightly elevated; uric acid 9.4; phos mid 5's. renal vascular and parenchymal imaging unremarkable apart from suggestion of CKD. differential here is broad. FSGS is common in pts of descent; other glomerulopathies associated with nephritic syndrome include potentially HBV/HCV related GNs or less likely lupus. May have JASON from NSAID use in the setting of already worsened renal function > this could include minimal change disease, membranous nephropathy; or simply AIN. Sickle cell trait has been a/w higher rates of CKD, albuminuria, worsening GFR in Americans compared to those w/o SCT, so that association could be considered in this patient whose relative hyposthenuria at admission also noted. 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 With the constellation of HTN, gout, CKD, lead nephropathy, while unlikely compared to other etiologies of worsened renal function, must be considered. overall at this point plan to monitor for a few days to ensure not acute issues which so far have not been seen; then d/c for very close f/u w/ likely dialysis education next week and once above labs post likely for renal bx and further steps from there -started D5w/ 100 mEq/L sodium bicarb at 80 ml/hr to address metabolic acidosis -BP can be high in AM but improves w/ meds > cont amlodipine -f/u pending spep, upep, ANCA serologies, complement, hepatitis panel, serum lead level, uric acid; if all of above negative HIV test should be considered -cannot r/o need for renal biopsy but need is not urgent at this time > not uremic, acidosis present but not severe, no volume overload on exam -continue to avoid nsaids -daily bmp -continue renal diet, no fluid limit for now -strict I/O, angélica UOP tracking -hyperuricemia noted though I am reluctant to start xanthine oxidase inhibitor at this time w/ already significant anemia, severe renal failure From neph standpoint if hgb stable/acceptable and not floridly uremic could possibly d/c later today with close f/u. NEPHRO D/C RECOMMENDATIONS -remote bp monitoring program -ESRD options education for dialysis /transplant > CKD residential case manager aware and will try to align with PCP hospital d/c appt w/in a week -likely renal bx in 7-10 days when labs are back; did d/w pt; pls work at arranging w/ my nurses -frequent labs w/ me and hospital d/c appt w me in 2 wks >>bmp, cbc, phos, UACM weekly x 3 to be ordered by neph nurse; neph nurse to refer to remote BP monitoring program as well -continued nephrotoxin avoidance -hematology close in consult as below -d/c meds >> tylenol up to 2 gm daily for pain control, NO NSAIDS; hold combo antihypertensive and continue amlodipine 5 mg daily -would also start sodium bicarbonate 1300 mg bid >strongly recommend he get [facility] [facility] account (ask him to work at that w/ or at PCP f/u); can also call [facility] [phone], then press 1 for Hebrew, then press 3 for specialty care. Ask to leave a message for Dr Randall or her nurse; they will take a message and get it to me. Care coordinated w/ Dr Rivers (2) HTN (hypertension): Plan: acceptable control currently -continue amlodipine -avoid THOR/ARB for now; continue to hold diuretic -current IV fluids should not contribute to HTN (3) Anemia: Plan: dropping hgb in pt w/ sickle cell trait. normocytic anemia w/ normal differential. A1c assay shows 35% hgb variant, possibly hgb S. Transferrin sat calculates to 37%. He had never had GI scopes; no known hx of colorectal diseases. LDH is wnl; doubt hemolysis but continue eval. -f/u pending tests: hgb electrophoresis, periph smear, parvovirus assays, FOBT, -transfuse for hgb <7 or sx -daily hgb; may need to avoid thor/arb which can suppress hgb -cologard planned as OP >recommend OP c/s closein w/ hematology re transfusion threshold for pt with 35% variant hgb >> is it the same as other pts? could he have a more functionally severe anemia w/ this variant? << no sx reported however; also wisdom or risk of starting allopurinol from heme standpoint; would also ask if in this setting he can have routine CKD anemia therapies such as TRACEY, iron infusions > any increased stroke risk w/ TRACEY? (4) Sickle cell trait: Plan: see above re anemia and CKD (5) CKD (chronic kidney disease): Plan: likely CKD given u/s findings and history of being told several months ago that renal function was compromised; baseline unknown Admission and Anticipated Discharge Date Admission Date: April 23, 2023 Subjective continues to feel well. no sob, no edema, no n/v, no pruritis, no f/c, no decreased uop. did have slight recurrence of R ankle pain Review of Systems 2 Review of Systems: All systems reviewed & are unremarkable except as noted in Subjective Physical Exam 2 Constitutional: well developed, well nourished (empty supper tray along side him) and cooperative; no acute distress Eyes: EOM intact bilaterally ENMT: Ears: no external ear abnormality Nose: no external nose abnormality Mouth: + dry oral mucous membranes Neck: no nuchal rigidity Respiratory: normal respiratory effort Auscultation: + diminished lung sounds Cardiovascular: Rate/Rhythm: regular rate and regular rhythm Heart Sounds: + murmur (soft SM) Extremities: no edema Gastrointestinal (Abdomen): Inspection/Auscultation: normal bowel sounds P ercussion/Palpation: abdomen soft and + fluid wave; abdomen nontender Musculoskeletal: Extremities: strength 5/5 throughout Skin: no rashes, warm and dry Neurologic: patel, fluent speech, no tremor Psychiatric: Orientation: alert and oriented x 3 Results & Data Vital Signs (Past 12 Hours) Vital Signs Temp Pulse Pulse Resp BP Pulse Ox O2 Del Method 04/25/23 07:33 36.9 C 83 18 154/84 H 100 Room Air 04/25/23 07:21 Room Air 04/25/23 05:53 83 04/25/23 03:04 37.1 C 91 H 18 122/77 98 Room Air 04/25/23 00:37 88 04/24/23 23:13 37.2 C 89 18 157/82 H 95 Room Air Laboratory Results 04/25/23 07:34 04/25/23 07:34 (1) Acute renal failure (ARF) Acute renal failure type: unspecified Qualified Code(s): N17.9 - Acute kidney failure, unspecified
[2023-04-25] MEDS ORDERED: SODIUM BICARBONATE 8.4% 100 MEQ in DEXTROSE 5% 1,000 ML IV SCH (09:30)
--- NOTE | 2023-04-25 09:42 | Hospitalist Progress Note ---
Date of Service April 25, 2023 Assessment & Plan (1) Acute renal failure (ARF): (2) Anemia: (3) HTN (hypertension): (4) Sickle cell trait: Plan This is a 68-year-old male who has significant past medical history of HTN, sickle cell carrier and gout who presents to ED at referral of PCP due to JASON. Acute Renal Failure (likely on CKD) uncertain etiology suspect intrinsic cause vs medical renal disease but will r/o other etiologies Obtained urine prot/cr, SPEP, UPEP, ANCA serologies - pending obtained Renal US and Renal Duplex to r/o obstructive etiology and RAMIRO - unrevealing D/C Losartan/HCTZ and avoid NSAIDS initiate amlodipine for blood pressure control making urine, no signs of uremia Cr remains at 10 Per nephrology: 600 mg proteinuria on spot ratio and 1.5L UOP 04/24 plus at least one uncounted void. ESR only slightly elevated; uric acid 9.4; phos mid 5's. renal vascular and parenchymal imaging unremarkable apart from suggestion of CKD. differential here is broad (pls refer to nephrology report for full detailed discussion) -started D5w/ 100 mEq/L sodium bicarb at 80 ml/hr to address metabolic acidosis -f/u pending spep, upep, ANCA serologies, complement, hepatitis panel, serum lead level, uric acid; if all of above negative HIV test should be considered Nephrology consulted and following closely - plan for outpt follow up- bmp, cbc, phos, UACM weekly x 3 to be ordered by neph nurse; neph nurse to refer to remote BP monitoring program as well Plan for likely renal biopsy in about 10 days. Recommend hematology outpt follow up as well. Discussed in detail w/ nephrology and the pt. Plan to DC home later today. Anemia suspect related to underlying renal disease Iron 65, transferrin 169, ferritin 318 Vitamin B12 and folate normal No signs of GI bleed, FOBT negative Close hematology follow up recommended HTN elevated in ED d/c losartan/hctz initiate amlodipine, monitor Sickle Cell Trait Hyperglycemia on admitting, nonfasting labs Current Hgb A1c 5% and lipid panel - LDL 137 DVT ppx: SQ Heparin FULL CODE Dispo: Plan to Dc home today PCP: DR. Raissa Metcalf Admission and Anticipated Discharge Date Admission Date: April 23, 2023 Subjective ff up for acute kidney failure on CKD?, etc Resting in bed, comfortable, no distress States he feels fine overall no chest pain, dyspnea, palpitations, dizziness States he is voiding well Denies abdominal pain No hematuria No other new symptoms Pt's present at the bedside and updated Discussed with nephrology, Dr. Kingsley, plan to likely discharge later today and close follow-up with nephrology, likely will need biopsy. Review of Systems Review of Systems: All systems reviewed & are unremarkable except as noted in Subjective Physical Exam Physical Exam: General- WD/WN in NAD Eyes- anicteric Neck- no JVD Lungs- clear breath sounds bilaterally, no rales/wheezes Heart- normal rate, regular rhythm; no murmurs Abdomen- normal bowel sounds, nondistended, soft, nontender Extremities- no pretibial edema, moves extremities Neuro- alert, oriented x 3; speech fluent, no facial asymmetry, answers appropriately, moves extremities Skin- warm & dry Results & Data Results & Data Vital Signs (Past 12 Hours) Vital Signs Temp Pulse Pulse Resp BP Pulse Ox O2 Del Method 04/25/23 07:33 36.9 C 83 18 154/84 H 100 Room Air 04/25/23 07:21 Room Air 04/25/23 05:53 83 04/25/23 03:04 37.1 C 91 H 18 122/77 98 Room Air 04/25/23 00:37 88 04/24/23 23:13 37.2 C 89 18 157/82 H 95 Room Air Laboratory Results 04/25/23 04/24/23 04/24/23 Range/Units 07:34 Unknown 17:08 WBC 4.63 L (4.8-10.8) K/ul RBC 2.42 L (4.70-6.10) M/uL Hgb 7.3 L (14.0-18.0) g/dl Hct 22.9 L (42.0-52.0) % MCV 94.6 (80.0-100.0) fL MCH 30.2 (25.0-34.0) pg MCHC 31.9 L (32.0-36.0) g/dL RDW Std Deviation 41.5 (36.4-46.3) fL RDW Coeff of Tomasz 12.0 (11.5-14.5) % Plt Count 229 (130-400) K/uL MPV 11.1 (9.4-12.4) fL Peripher Smr Path Cons ESR 23 H (0-20) mm/hr Hemoglobin A Pending Hemoglobin A2 Pending Hemoglobin C Pending Hemoglobin E Pending Hemoglobin F () Pending Hemoglobin S Pending Variant Hemoglobin Pending Hemoglobin Variant 2 Pending Hgb ELP Interp Pending Hemoglobinopathy Red Blood Count Pending Hemoglobinopathy Hct Pending Hemoglobinopathy Hgb Pending Hemoglobinopathy MCV Pending Hemoglobinopathy MCH Pending Hemoglobinopathy RDW Pending Sodium 140 (136-145) mmol/L Potassium 5.1 (3.5-5.1) mmol/L Chloride 110 H (98-107) mmol/L Carbon Dioxide 17 L (21-32) mmol/L Anion Gap 13 H (3-11) BUN 104 H (6-23) mg/dl Creatinine 10.66 H* D (0.6-1.4) mg/dl Est Cr Clr Drug Dosing 6.8 ml/min Est GFR ( Amer) 5.2 ml/min Est GFR (Non-Af Amer) 4.5 ml/min BUN/Creatinine Ratio 9.8 L (10-20) Glucose 86 (70-99(Fasting)) mg/dl Estimat Average Glucose mg/dl Hemoglobin A1c (4.5-5.6) % Uric Acid 9.4 H (2.6-7.2) mg/dl Calcium 8.0 L (8.6-10.3) mg/dl Phosphorus 5.3 H (2.5-4.9) mg/dl Magnesium 2.3 (1.7-2.4) mg/dl Lactate Dehydrogenase 171 (86-244) U/L Ur Random Creatinine 77.1 mg/dl U Random Total Protein 50.1 H (0-11.9) mg/dl Protein/Creatinin Ratio 0.6 H (0-0.2) Lead Pending Complement C3 Pending Complement C4 Pending Tot Complement (CH50) Pending Hepatitis B Ab, Qual Pending Hep Bs Antigen Pending Hep Bs Ag Confirmation Pending Hepatitis Be Antigen Pending Hepatitis C Ab (EIA) Pending Parvovirus Source Pending Parvovirus IgG Ab Index Pending Parvovirus IgM Ab Index Pending Parvovirus B19 Detect Pending 04/24/23 Range/Units 04:23 WBC (4.8-10.8) K/ul RBC (4.70-6.10) M/uL Hgb (14.0-18.0) g/dl Hct (42.0-52.0) % MCV (80.0-100.0) fL MCH (25.0-34.0) pg MCHC (32.0-36.0) g/dL RDW Std Deviation (36.4-46.3) fL RDW Coeff of Tomasz (11.5-14.5) % Plt Count (130-400) K/uL MPV (9.4-12.4) fL Peripher Smr Path Cons ESR (0-20) mm/hr Hemoglobin A Hemoglobin A2 Hemoglobin C Hemoglobin E Hemoglobin F () Hemoglobin S Variant Hemoglobin Hemoglobin Variant 2 Hgb ELP Interp Hemoglobinopathy Red Blood Count Hemoglobinopathy Hct Hemoglobinopathy Hgb Hemoglobinopathy MCV Hemoglobinopathy MCH Hemoglobinopathy RDW Sodium (136-145) mmol/L Potassium (3.5-5.1) mmol/L Chloride (98-107) mmol/L Carbon Dioxide (21-32) mmol/L Anion Gap (3-11) BUN (6-23) mg/dl Creatinine (0.6-1.4) mg/dl Est Cr Clr Drug Dosing ml/min Est GFR ( Amer) ml/min Est GFR (Non-Af Amer) ml/min BUN/Creatinine Ratio (10-20) Glucose (70-99(Fasting)) mg/dl Estimat Average Glucose 97 mg/dl Hemoglobin A1c 5.0 (4.5-5.6) % Uric Acid (2.6-7.2) mg/dl Calcium (8.6-10.3) mg/dl Phosphorus (2.5-4.9) mg/dl Magnesium (1.7-2.4) mg/dl Lactate Dehydrogenase (86-244) U/L Ur Random Creatinine mg/dl U Random Total Protein (0-11.9) mg/dl Protein/Creatinin Ratio (0-0.2) Lead Complement C3 Complement C4 Tot Complement (CH50) Hepatitis B Ab, Qual Hep Bs Antigen Hep Bs Ag Confirmation Hepatitis Be Antigen Hepatitis C Ab (EIA) Parvovirus Source Parvovirus IgG Ab Index Parvovirus IgM Ab Index Parvovirus B19 Detect Medications Administered Current Inpatient Medications Acetaminophen (Acetaminophen 325 Mg Tab) 650 mg PO Q4H PRN PRN Reason: pain/fever Stop: 05/23/23 21:20 Amlodipine Besylate (Amlodipine Besylate 5 Mg Tab) 5 mg PO QAM [facility] Stop: 05/24/23 08:59 Last Admin: 04/25/23 08:03 Dose: 5 mg Heparin Sodium (Porcine) (Heparin Sod 5,000 Unit/0.5 Ml Vial) 5,000 units SQ Q8 JOAQUIN Stop: 05/23/23 21:59 Last Admin: 04/25/23 05:19 Dose: 5,000 units Sodium Bicarbonate 100 meq/ (Dextrose) 1,100 mls @ 80 mls/hr IV .[id number] [facility] Stop: 05/25/23 09:29 Ondansetron HCl (Ondansetron Inj 2 Mg/Ml 2 Ml Vial) 4 mg IV Q6H PRN PRN Reason: Nausea Stop: 05/23/23 21:20 Polyethylene Glycol (Polyethylene (Miralax) 17 Gm Pack) 17 gm PO DAILY PRN PRN Reason: Constipation Stop: 05/23/23 21:20 (1) Acute renal failure (ARF) Acute renal failure type: unspecified Qualified Code(s): N17.9 - Acute kidney failure, unspecified
--- NOTE | 2023-04-25 16:44 | Discharge Summary ---
Date of Service April 25, 2023 Admission HPI Per Admitting Provider This is a 68-year-old male who has significant past medical history of HTN, sickle cell carrier and gout who presents to ED at referral of PCP due to JASON. Patient and his are from [facility]. They are currently in the [place] while his works on her post doctorate in [employer]. He came [place] to the [place] 1 month ago. states approximately 5 months ago they were told his kidneys were, "not right." They were lost to follow-up as for the past 3 months they have been in [place] taking care of their son who required bone marrow bx. He has been feeling well as of late. 2 weeks ago he was having right ankle and foot pain and therefore his picked up an [id number] bottle of naproxen that he was using as needed for pain. He denies any fever, chills, sweats, lightheadedness, dizziness, weight loss, chest pain, shortness of breath, nausea, vomiting, abdominal pain, dysuria, melena, hematochezia, hematuria, diarrhea or constipation. In ED patient had a notable anemia for 8.5 and 26.9. His chemistry panel was abnormal including a BUN of 94, creatinine 10.01, anion gap 12, glucose 152, calcium 8.5, total protein high at 8.4, globulin gap elevated at 4.1 and urinalysis consistent with protein and blood. Admission Exam Per Admitting Provider Constitutional: WD/WN, vitals as above, NAD, sitting up in bed, pleasant, conversing easily Head: Normocephalic, Atraumatic Eyes: PERRL, conjunctivae normal, anicteric sclerae ENMT: external ear and nose normal, oropharynx normal Neck: trachea midline, no thyromegaly normal visual inspection Respiratory: normal respiratory effort, lungs clear to auscultation, no wheeze, rales, rhonchi. Normal insp/exp effort, no accessory muscle use Cardiovascular: RRR, no murmur, no edema Vessels: no JVD or carotid bruit Chest: normal inspection of chest Abdomen: Protuberant, normal bowel sounds, soft, nontender, no hepatosplenomegaly Musculoskeletal: no cyanosis or clubbing, extremities motor strength 5/5 Skin: no rashes, warm and dry normal turgor Neurologic: PERRL, EOMI, accommodation nl, no face palsy, no dysarthria CN's II-XI intact bilaterally and moves all extremities Psychiatric: A+Ox3, euthymic affect Lymphatic: no cervical or axillary lymphadenopathy : deferred Principal Diagnosis JASON on CKD Discharge Exam General- WD/WN in NAD Eyes- anicteric Neck- no JVD Lungs- clear breath sounds bilaterally, no rales/wheezes Heart- normal rate, regular rhythm; no murmurs Abdomen- normal bowel sounds, nondistended, soft, nontender Extremities- no pretibial edema, moves extremities Neuro- alert, oriented x 3; speech fluent, no facial asymmetry, answers appropriately, moves extremities Skin- warm & dry Discharge Data Allergies Allergy/AdvReac Type Severity Reaction Status Date / Time No Known Allergies Allergy Unverified 04/23/23 18:07 Consultations 04/23/23 18:08 ED Decision to Admit Stat 04/23/23 18:35 Consult Nephrology Routine Ordered Studies 04/23/23 17:28 US Renal Bladder [US renal/blad retro comp] Stat FINDINGS: The patient's low velocity within the distal right renal artery was 80 cm/s and the distal left renal artery was 70 cm/s. The visualized bilateral renal veins are patent. Of note, the mid bilateral renal arteries were not well visualized due to overlying bowel gas. Resistive indices of the bilateral renal arcuate arteries are within normal limits measuring less than 0.75. IMPRESSION: No evidence for renal artery stenosis. 04/23/23 19:14 US duplex renal artery Routine FINDINGS: Right kidney: The right kidney measures 10 cm. There is increased echogenicity of the right kidney. There is a simple appearing right renal cyst, no follow-up is needed. No stones. No hydronephrosis. Left kidney: There is increase echogenicity of the left kidney. The left kidney measures 9.6 cm. There is a small amount of nonspecific left perinephric fluid. Simple appearing left renal cysts are present, no follow-up is needed. No stones. Other findings: Incidentally noted fatty infiltration of the liver. IMPRESSION: 1. No hydronephrosis. 2. Increased echogenicity of the cortex of the kidneys is most consistent with chronic medical renal disease. 3. There is a small amount of nonspecific left perinephric fluid. 4. Incidentally noted fatty infiltration of the liver. Hospital Course (1) Acute renal failure (ARF): (2) Anemia: (3) HTN (hypertension): (4) Sickle cell trait: Plan This is a 68-year-old male who has significant past medical history of HTN, sickle cell carrier and gout who presents to ED at referral of PCP due to JASON. Acute Renal Failure (likely on CKD) uncertain etiology suspect intrinsic cause vs medical renal disease but will r/o other etiologies Obtained urine prot/cr, SPEP, UPEP, ANCA serologies - pending obtained Renal US and Renal Duplex to r/o obstructive etiology and RAMIRO - unrevealing D/C Losartan/HCTZ and avoid NSAIDS initiate amlodipine for blood pressure control making urine, no signs of uremia Cr remains at 10 Per nephrology: 600 mg proteinuria on spot ratio and 1.5L UOP 04/24 plus at least one uncounted void. ESR only slightly elevated; uric acid 9.4; phos mid 5's. renal vascular and parenchymal imaging unremarkable apart from suggestion of CKD. differential here is broad (pls refer to nephrology report for full detailed discussion) -started D5w/ 100 mEq/L sodium bicarb at 80 ml/hr to address metabolic acidosis -f/u pending spep, upep, ANCA serologies, complement, hepatitis panel, serum lead level, uric acid; if all of above negative HIV test should be considered Nephrology consulted and following closely - plan for outpt follow up- bmp, cbc, phos, UACM weekly x 3 to be ordered by neph nurse; neph nurse to refer to remote BP monitoring program as well Started on amlodipine. Also recommend to start sodium bicarb 1,300 mg bid. Stop losartan/HCTZ Plan for likely renal biopsy in about 10 days. Remote bp monitoring program ESRD options education for dialysis /transplant > CKD case loader operator aware and will try to align with PCP hospital d/c appt w/in a week. No NSAIDs. Recommend hematology outpt follow up as well. Discussed in detail w/ nephrology and the pt. Plan to DC home later today. Anemia suspect related to underlying renal disease Iron 65, transferrin 169, ferritin 318 Vitamin B12 and folate normal No signs of GI bleed, FOBT negative Close hematology follow up recommended HTN elevated in ED d/c losartan/hctz initiate amlodipine, monitor Sickle Cell Trait Hyperglycemia on admitting, nonfasting labs Current Hgb A1c 5% and lipid panel - LDL 137 Total Time Total Time Spent Total Time Spent (In Minutes): 60 Discharge Plan Discharge Items Patient Disposition: Home - Self-Care Reason For Visit: JASON Discharge Diagnosis: JASON on CKD Activity: Per Instructions section Non-emergency contact: Primary Care Provider and Vehicle Service Agent Call non-emergency contact if: you have any medication questions and your symptoms worsen Follow-up/Referrals: Penelope Randall MD, PhD [Physician] - (The Nephrology office will contact you for a follow up appointment.) Raissa Valenzuela MD [Primary Care Provider] - (Date & Time 05/01/2023 10:00 AM Provider Raissa Valenzuela MD Department [facility] ) Diet: Dialysis Renal and Heart Healthy Add Attending Provider Instructions: Follow-up with your primary care physician, and electric brain wave equipment mechanic. It was recommended that you also follow-up with fabric sourcer. The appointment with your primary care physician was scheduled for you for 05/01/2023. You will be contacted about your appointment with nephrology. You will need repeat blood work prior to your appointment with nephrology. You will likely need kidney biopsy in about 10 days, your electric brain wave equipment mechanic will arrange this for you. Stop taking losartan/HCTZ, naproxen. You were started on a new medication for blood pressure, amlodipine. Also take sodium bicarbonate 1,300 mg twice a day. For pain, you can take Tylenol up to 2,000 mg a day. Do not use NSAIDS such as naproxen, Aleve, ibuprofen, Motrin etc. Addtl Chief Pharmacist Provider Instructions: Per nephrology - Dr. Randall - recommend that you get [employer] account with [employer] (if needed help setting this up, can get help at next primary care doctor follow up appointment); can also call [facility] [phone], then press 1 for [place], then press 3 for specialty care. Ask to leave a message for Dr Randall or her nurse; they will take a message. Pending Studies at Discharge: Yes Studies:: serology for JASON on CKD Stand-Alone Forms: My [facility], Smoking Cessation Medications and DC Order Prescriptions: New amlodipine [Norvasc] 5 mg Tablet 5 mg PO QAM Qty: 30 0RF sodium bicarbonate 650 mg tablet 1,300 mg PO BID 21 Days Qty: 84 0RF Discontinued losartan-hydrochlorothiazide 50-12.5 mg Tablet 1 tab PO DAILY naproxen sodium 220 mg Capsule 220 mg PO BID PRN (Reason: Pain) Discharge Orders: Discharge Order (Routine); Ordered 04/25/23 Ordered By: Yovani Rivers Admission Data Admit Date/Time: 04/23/23 18:17 Attending Provider: Yovani Rivers Admit Provider: Dax Carlisle Primary Care Provider: Raissa Valenzuela Other Providers: Rio Valencia; Clifton Russ; Dax Carlisle
[2023-04-26 05:57] LABS: Creatinine Ur 105 mg/dL (20-320); Protein, Urine Random 101 mg/dL (5-25); Ur Protein/Creat Ratio mg/g 962 mg/g creat (25-148); Urine Abnormal Protein Band 1 DNR mg/dL (NONE DETECTED); Urine Abnormal Protein Band 2 DNR mg/dL (NONE DETECTED); Urine Abnormal Protein Band 3 DNR mg/dL (NONE DETECTED); Urine Protein/Creatinine Ratio 0.962 (0.025-0.148)
[2023-04-26 07:03] LABS: Albumin 3.9 g/dL (3.8-4.8); Alpha 1 Globulin 0.3 g/dL (0.2-0.3); Alpha 2 Globulin 0.9 g/dL (0.5-0.9); Beta-1-Globulin 0.3 g/dL (0.4-0.6); Beta-2-Globulin 0.4 g/dL (0.2-0.5); Gamma Globulin 1.2 g/dL (0.8-1.7); Monoclonal Protein Band 1 DNR g/dL (NONE DETECTED); Monoclonal Protein Band 2 DNR g/dL (NONE DETECTED); Monoclonal Protein Band 3 DNR g/dL (NONE DETECTED); Total Protein 7.1 g/dL (6.1-8.1)
--- NOTE | 2023-04-27 21:31 | Electrocardiogram Report ---
Test Reason : Blood Pressure : / mmHG Vent. Rate : 084 BPM Atrial Rate : 084 BPM P-R Int : 128 ms QRS Dur : 080 ms QT Int : 372 ms P-R-T Axes : 047 097 064 degrees QTc Int : 439 ms Normal sinus rhythm Possible Right ventricular hypertrophy Abnormal ECG When compared with ECG of 23-APR-2023 17:52, Questionable change in QRS axis Confirmed by Desmond Quiroga ([id number]) on 04/27/2023 9:30:41 PM Referred By: REFERRED SELF Confirmed By:Desmond Quiroga
[2023-04-28 23:52] LABS: ANCA Screen Negative (Negative); Myeloperoxidase Ab <1.0 AI (<1.0); Proteinase-3 AB <1.0 AI (<1.0)
[2023-04-30 00:28] LABS: Complement C3 62 mg/dL (82-185); Complement Total(CH50) >60 U/mL (31-60); HBSAG NON-REACTIVE (NON-REACTIVE); HCT 21.8 % (38.5-50.0); Hemoglobin E DNR %; Hemoglobin Variant 1 DNR; Hemoglobin Variant 2 DNR; Hepatitis BE Antigen Nonreactive; MCH 30.6 pg (27.0-33.0); MCV 95.2 fL (80.0-100.0); Parvovirus B19 Qual Source Plasma; Parvovirus B19 Qualitative Not Detected (Not Detected); Parvovirus IgM 0.2 (<0.9); RBC 2.29 Mill/uL (4.20-5.80)
== END 2023-04-25 20:01 | disposition home or self-care (01) | DRG 683 ==
LOC: ED 16:19 → EDINP 18:17 → SUATTDRO 18:17 → 2N 21:20

== ENCOUNTER 2023-04-29 18:54 | Inpatient (IN) ==
--- NOTE | 2023-04-29 19:33 | XRay Report ---
XR chest 1V portable CLINICAL HISTORY: weakness TECHNIQUE: Single frontal radiograph of the chest was obtained. Comparison: Comparison is made to chest radiograph 04/23/2023 FINDINGS: Exam is limited by underpenetration. Cardiomegaly is noted. The lungs are clear. No evidence of pleur al effusion or pneumothorax. IMPRESSION: No acute chest disease. ACT 112: Negative or not required by law. Electronically signed by: Jack Chavira M.D. 04/29/2023 7:32 PM
[2023-04-29 19:43] LABS: Hematocrit (blood only) 24.4 % (42.0-52.0); Hemoglobin 7.8 g/dl (14.0-18.0); Mean Corpuscular Hemoglobin 29.4 pg (25.0-34.0); Mean Corpuscular Volume 92.1 fL (80.0-100.0); Mean Platelet Volume 10.8 fL (9.4-12.4); Platelet Count 271 K/uL (130-400); RDW Coefficient of Variation 12.3 % (11.5-14.5); RDW Standard Deviation 41.3 fL (36.4-46.3); Red Blood Count 2.65 M/uL (4.70-6.10); White Blood Count 7.79 K/ul (4.8-10.8)
--- NOTE | 2023-04-29 19:44 | Emergency Department Note ---
Impression & Plan Renal failure, Anemia ED Provider Note NAME: JIGAR VASQUEZ AGE: 68 SEX: M : 1955 ARRIVES VIA: Walk-In INFORMANT: [Patient] ED PROVIDER(S): [Ramirez Brower MD] CHIEF COMPLAINT: Illness HISTORY OF PRESENT ILLNESS: The patient is a 68-year-old male who was recently diagnosed with renal injury. He was discharged from our hospital on the , 4 days ago. Creatinine at that time was 10. He was to follow-up with nephrology. The patient had some outpatient laboratory work done and the results showed a high potassium. He was sent to this hospital as he is going to need dialysis. Patient has not had chest pain or dyspnea. No fever. He is still making urine. PMHx/PSHx/Social Hx: See Below PHYSICAL EXAM: GENERAL: Patient is in no acute distress. HEENT: No acute trauma, normocephalic atraumatic, mucous membranes moist, no nasal congestion. NECK: No stridor, no adenopathy, no meningismus, trachea is midline. LUNGS: Clear to auscultation bilaterally, no wheeze, no rhonchi, breath sounds equal. HEART: Subtle systolic murmur, regular rate and rhythm. ABDOMEN: Soft, nontender, no peritonitis. EXTREMITIES: No cyanosis, full range of motion of all the joints without pain or difficulty. No pedal edema. NEUROLOGIC: Oriented x 3, no acute motor or sensory deficits, no focal weakness. SKIN: No jaundice, no diaphoresis. DIFFERENTIAL DIAGNOSIS: Renal failure, electrolyte imbalance, hyperkalemia, CHF, anemia, among others. EMERGENCY DEPARTMENT PROCEDURES: MEDICAL DECISION MAKING: There is no leukocytosis. The patient is anemic however, his value appears stable compared to recent testing. There is a normal platelet count. No coagulopathy. Creatinine is quite high at around 10, this is baseline for the patient looking back at his recent discharge. BUN is quite elevated, also baseline looking back at his recent discharge. Potassium is normal. Phosphorus was elevated. No concerning liver enzyme elevation. The patient appeared to be in a euthyroid state. Urinalysis did not show infection or hematuria. Chest x- ray did not show CHF or pneumonia. ECG showed a normal sinus rhythm, no ischemia or dysrhythmia. Cardiac enzyme testing x 1 is not consistent with acute cardiac injury. The patient presents as directed by nephrology. I did speak with Dr. Kingsley of nephrology. The patient will require a hospital stay, vascular consult and likely dialysis in the very near future. I spoke with the patient and case management, the on-call hospitalist was consulted. Prior/Outside records/notes reviewed: Discharge summary note from 04/25/2023 discussing his presentation for acute renal injury and the plan moving forward. ECG per my interpretation: Indication was electrolyte imbalance. ECG shows a normal sinus rhythm with a rate of 79. There is no ST elevation, no PVCs. The QTc is 440. Continuous Cardiac Monitoring per my interpretation: An order was placed for continuous cardiac monitoring. The monitor shows a rate of 85 with normal sinus rhythm. Imaging/x-ray results per my interpretation: Chest x-ray shows some cardiomegaly, no pneumonia or CHF. Chronic Medical/Social conditions affecting care: Sickle cell trait. Care/Management discussed with: Case management, the on-call hospitalist. Nephrology-Dr. Kingsley. Level of care consideration(s): After review of the information above and other included data: --I believe the patient requires escalation of care to admission DISPOSITION: Admission Past Med/Surg History Medical History Anemia Sickle cell trait Gout HTN (hypertension) Surgical History (Updated 04/23/23 @ 19:19 by Steph Mace PA-C) No pertinent past surgical history Family History (Updated 04/23/23 @ 19:18 by Steph Mace PA-C) Father Alive and well Social History Smoking Status: Never smoker Hx Alcohol Use: Yes Alcohol Intake Frequency Comment: rare Hx Substance Use: No Preferred Language: Tajik Communication Ability: Effective Communication Ability Comment: From [employer] Required: No Beliefs That Will Affect Care: None marital status: Current Living Situation: Spouse Feels Safe at Home: Yes Assistive Devices: Glasses Allergies Allergies Allergy/AdvReac Type Severity Reaction Status Date / Time No Known Allergies Allergy Unverified 04/29/23 20:48 Home Meds Home Medications Medication Instructions Recorded Confirmed furosemide 40 mg tablet 80 mg PO QAM 04/29/23 04/29/23 losartan 50 mg-hydrochlorothiazide 1 tab PO QAM 04/29/23 04/29/23 12.5 mg tablet Previous Rx's Medication Instructions Recorded amlodipine 5 mg tablet (Norvasc) 5 mg PO QAM #30 tabs 04/25/23 sodium bicarbonate 650 mg tablet 1,300 mg (2 x 650 mg) PO BID 3 04/25/23 weeks #84 tabs Results & Data (ED) Vital Signs Vital Signs - 24 hr 04/29/23 19:01 04/29/23 19:10 04/29/23 19:24 Temperature 36.2 C L Temperature Source Temporal Artery Scan Pulse Rate 96 H 85 Pulse Rate [Apical] Pulse Rhythm Regular Respiratory Rate 18 18 Respiratory Effort / Characteristics Non-Labored Respiratory Depth Normal Respiratory Pattern Regular Blood Pressure 183/95 H Blood Pressure [Left Arm] Blood Pressure Mean 124 Blood Pressure Mean [Left Arm] Blood Pressure Position [Left Arm] Pulse Oximetry 100 99 Oxygen Delivery Method Room Air Room Air Room Air Sepsis Recent Fever Within 48 Hours No Sepsis New/Unexplained Change in Mental Status N/A Sepsis Action Taken by Nursing No Action Required 04/29/23 19:46 04/29/23 20:39 04/29/23 20:39 Temperature Temperature Source Pulse Rate 73 Pulse Rate [Apical] 74 75 Pulse Rhythm Respiratory Rate 16 18 Respiratory Effort / Characteristics Non-Labored Respiratory Depth Normal Respiratory Pattern Blood Pressure Blood Pressure [Left Arm] 134/88 146/93 H Blood Pressure Mean Blood Pressure Mean [Left Arm] 103 110 Blood Pressure Position [Left Arm] Sitting Lying Pulse Oximetry 96 96 Oxygen Delivery Method Room Air Room Air Sepsis Recent Fever Within 48 Hours Sepsis New/Unexplained Change in Mental Status Sepsis Action Taken by Nursing 04/29/23 22:00 Temperature Temperature Source Pulse Rate Pulse Rate [Apical] 75 Pulse Rhythm Respiratory Rate 18 Respiratory Effort / Characteristics Non-Labored Respiratory Depth Normal Respiratory Pattern Blood Pressure Blood Pressure [Left Arm] 148/102 H Blood Pressure Mean Blood Pressure Mean [Left Arm] 117 Blood Pressure Position [Left Arm] Pulse Oximetry 96 Oxygen Delivery Method Room Air Sepsis Recent Fever Within 48 Hours Sepsis New/Unexplained Change in Mental Status Sepsis Action Taken by Longterm Medications Current Medication List: was personally reviewed by me Laboratory Data Attestation: I reviewed the patient's lab results. 04/29/23 19:18 04/29/23 19:18 Lab Results 04/29/23 04/29/23 04/29/23 Range/Units 19:18 19:20 20:11 WBC 7.79 (4.8-10.8) K/ul RBC 2.65 L (4.70-6.10) M/uL Hgb 7.8 L (14.0-18.0) g/dl Hct 24.4 L (42.0-52.0) % MCV 92.1 (80.0-100.0) fL MCH 29.4 (25.0-34.0) pg MCHC 32.0 (32.0-36.0) g/dL RDW Std Deviation 41.3 (36.4-46.3) fL RDW Coeff of Tomasz 12.3 (11.5-14.5) % Plt Count 271 (130-400) K/uL MPV 10.8 (9.4-12.4) fL Immature Gran % (Auto) 0.3 % Neut % (Auto) 50.8 % Lymph % (Auto) 37.2 % [place] % (Auto) 8.9 % Eos % (Auto) 2.3 % Baso % (Auto) 0.5 % Neut # (Auto) 3.96 (1.40-6.50) K/uL Lymph # (Auto) 2.90 (1.20-3.40) K/uL [place] # (Auto) 0.69 H (0.11-0.59) K/uL Eos # (Auto) 0.18 (0.00-0.50) K/uL Baso # (Auto) 0.04 (0.00-0.20) K/uL Immature Gran # (Auto) 0.02 (0.01-0.20) K/uL Hypochromasia Present Microcytosis Present PT 10.8 (9.0-12.0) Seconds INR 1.0 (0.9-1.1) APTT 29 (21-31) Seconds PTT Ratio 1.0 Sodium 136 (136-145) mmol/L Potassium 4.9 (3.5-5.1) mmol/L Chloride 103 (98-107) mmol/L Carbon Dioxide 20 L (21-32) mmol/L Anion Gap 13 H (3-11) BUN 111 H (6-23) mg/dl Creatinine 10.36 H* (0.6-1.4) mg/dl Est Cr Clr Drug Dosing 6.9 ml/min Est GFR ( Amer) 5.4 ml/min Est GFR (Non-Af Amer) 4.6 ml/min BUN/Creatinine Ratio 10.7 (10-20) Glucose 96 (70-99(Fasting)) mg/dl Calcium 8.1 L (8.6-10.3) mg/dl Phosphorus 5.1 H (2.5-4.9) mg/dl Magnesium 2.4 (1.7-2.4) mg/dl Total Bilirubin 0.3 (0.2-1.0) mg/dl AST 14 (13-39) U/L ALT 12 (7-52) U/L Alkaline Phosphatase 152 H (34-104) U/L Total Creatine Kinase 172 (30-223) U/L Troponin I High Sens 10.4 (0-20) pg/ml Total Protein 8.3 (6.0-8.3) gm/dl Albumin 4.3 (3.4-5.0) gm/dl Globulin 4.0 (2.5-4.0) gm/dl Albumin/Globulin Ratio 1.1 (0.9-2) TSH 0.863 (0.300-4.500) uIu/ml Urine Color Yellow Urine Appearance Clear (Clear) Urine pH 6.5 (4.5-7.5) Ur Specific [place] 1.010 (1.000-1.030) Urine Protein 1+ H (Negative) Urine Glucose (UA) Negative (Negative) Urine Ketones Negative (Negative) Urine Blood Trace H (Negative) Urine Nitrite Negative (Negative) Urine Bilirubin Negative (Negative) Urine Urobilinogen Negative (Negative) Ur Leukocyte Esterase Negative (Negative) Urine WBC (Auto) 1-5 (0-5) /hpf Urine RBC (Auto) 0-4 (0-4) /hpf U Hyaline Cast (Auto) 1-5 (0-5) /lpf U Epithel Cells (Auto) 0-5 (0-5) /lpf Urine Bacteria (Auto) Negative (Negative) Blood Type O Positive Blood Type Recheck Antibody Screen NEGATIVE 04/29/23 Range/Units 20:39 WBC (4.8-10.8) K/ul RBC (4.70-6.10) M/uL Hgb (14.0-18.0) g/dl Hct (42.0-52.0) % MCV (80.0-100.0) fL MCH (25.0-34.0) pg MCHC (32.0-36.0) g/dL RDW Std Deviation (36.4-46.3) fL RDW Coeff of Tomasz (11.5-14.5) % Plt Count (130-400) K/uL MPV (9.4-12.4) fL Immature Gran % (Auto) % Neut % (Auto) % Lymph % (Auto) % [place] % (Auto) % Eos % (Auto) % Baso % (Auto) % Neut # (Auto) (1.40-6.50) K/uL Lymph # (Auto) (1.20-3.40) K/uL [place] # (Auto) (0.11-0.59) K/uL Eos # (Auto) (0.00-0.50) K/uL Baso # (Auto) (0.00-0.20) K/uL Immature Gran # (Auto) (0.01-0.20) K/uL Hypochromasia Microcytosis PT (9.0-12.0) Seconds INR (0.9-1.1) APTT (21-31) Seconds PTT Ratio Sodium (136-145) mmol/L Potassium (3.5-5.1) mmol/L Chloride (98-107) mmol/L Carbon Dioxide (21-32) mmol/L Anion Gap (3-11) BUN (6-23) mg/dl Creatinine (0.6-1.4) mg/dl Est Cr Clr Drug Dosing ml/min Est GFR ( Amer) ml/min Est GFR (Non-Af Amer) ml/min BUN/Creatinine Ratio (10-20) Glucose (70-99(Fasting)) mg/dl Calcium (8.6-10.3) mg/dl Phosphorus (2.5-4.9) mg/dl Magnesium (1.7-2.4) mg/dl Total Bilirubin (0.2-1.0) mg/dl AST (13-39) U/L ALT (7-52) U/L Alkaline Phosphatase (34-104) U/L Total Creatine Kinase (30-223) U/L Troponin I High Sens (0-20) pg/ml Total Protein (6.0-8.3) gm/dl Albumin (3.4-5.0) gm/dl Globulin (2.5-4.0) gm/dl Albumin/Globulin Ratio (0.9-2) TSH (0.300-4.500) uIu/ml Urine Color Urine Appearance (Clear) Urine pH (4.5-7.5) Ur Specific [place] (1.000-1.030) Urine Protein (Negative) Urine Glucose (UA) (Negative) Urine Ketones (Negative) Urine Blood (Negative) Urine Nitrite (Negative) Urine Bilirubin (Negative) Urine Urobilinogen (Negative) Ur Leukocyte Esterase (Negative) Urine WBC (Auto) (0-5) /hpf Urine RBC (Auto) (0-4) /hpf U Hyaline Cast (Auto) (0-5) /lpf U Epithel Cells (Auto) (0-5) /lpf Urine Bacteria (Auto) (Negative) Blood Type Blood Type Recheck O Positive Antibody Screen Imaging Data Radiologist's Impression: Chest X-Ray 04/29/23 19:12 XR chest 1V portable CLINICAL HISTORY: weakness TECHNIQUE: Single frontal radiograph of the chest was obtained. Comparison: Comparison is made to chest radiograph 04/23/2023 FINDINGS: Exam is limited by underpenetration. Cardiomegaly is noted. The lungs are clear. No evidence of pleural effusion or pneumothorax. IMPRESSION: No acute chest disease. ACT 112: Negative or not required by law. Electronically signed by: Jack Chavira M.D. 04/29/2023 7:32 PM Discharge Plan Visit Data Chief Complaint: Illness Stated Complaint: KIDNEY FAILURE ED Provider: Ramirez Brower Discharge Problem: Renal failure, Anemia Patient Disposition: Admitted As Inpatient Condition: Fair Discharge Problem: Renal failure Qualifiers: Renal failure chronicity: unspecified chronicity Qualified Code(s): N19 - Unspecified kidney failure Anemia Qualifiers: Anemia type: unspecified type Qualified Code(s): D64.9 - Anemia, unspecified
[2023-04-29 19:46] LABS: Appearance Urine Clear (Clear); Bacteria Urine Automated Negative (Negative); Bilirubin Urine Negative (Negative); Blood Urine Trace (Negative); Color Urine Yellow; Epithelial Cell Urine Auto 0-5 /lpf (0-5); Glucose Urine UA Negative (Negative); Ketones Urine Negative (Negative); Leukocyte Esterase Urine Negative (Negative); Nitrite Urine Negative (Negative); Protein Urine 1+ (Negative); RBC Urine Automated 0-4 /hpf (0-4); Urobilinogen Urine Negative (Negative); pH Urine 6.5 (4.5-7.5)
[2023-04-29 20:11] LABS: Albumin Globulin Ratio 1.1 (0.9-2); Albumin Level 4.3 gm/dl (3.4-5.0); BUN Creatinine Ratio 10.7 (10-20); Bilirubin,Total 0.3 mg/dl (0.2-1.0); Calcium 8.1 mg/dl (8.6-10.3); Creatinine Clr Calc Pharmacy 6.9 ml/min; Est GFR (African American) 5.4 ml/min; Est GFR (Non-African American) 4.6 ml/min; Magnesium 2.4 mg/dl (1.7-2.4); Partial Thromboplastin Time 29 Seconds (21-31); Phosphorus 5.1 mg/dl (2.5-4.9); Potassium 4.9 mmol/L (3.5-5.1); Prothrombin Time 10.8 Seconds (9.0-12.0); Total Protein 8.3 gm/dl (6.0-8.3); Troponin I High Sensitivity 10.4 pg/ml (0-20)
[2023-04-29 20:50] LABS: Basophils # (auto) 0.04 K/uL (0.00-0.20); Basophils % (auto) 0.5 %; Eosinophils # (auto) 0.18 K/uL (0.00-0.50); Eosinophils % (auto) 2.3 %; Hypochromasia Present; Immature Granulocytes # (auto) 0.02 K/uL (0.01-0.20); Immature Granulocytes % (auto) 0.3 %; Lymphocytes % (auto) 37.2 %; Microcytosis Present; Monocytes # (auto) 0.69 K/uL (0.11-0.59); Monocytes % (auto) 8.9 %; Neutrophils # (auto) 3.96 K/uL (1.40-6.50); Neutrophils % (auto) 50.8 %
[2023-04-29 21:14] LABS: Thyroid Stimulating Hormone 0.863 uIu/ml (0.300-4.500)
--- NOTE | 2023-04-29 22:33 | History & Physical Report ---
Date of Service April 29, 2023 Assessment & Plan (1) CKD (chronic kidney disease): Plan: 68-year-old male with past med history significant for hypertension, sickle cell carrier, and gout was sent in by nephro for plan for initiating peritoneal dialysis. Patient is from [facility] recently came to [facility]. Seems about 5 months ago he was told kidney function not right but then he was in [place] for last 3 months for his son's bone marrow transplant. Patient states routine checkup he was found to renal failure and was recently in the hospital. His creatinine was around 10. Renal ultrasound showed chronic medical renal disease. ANCA studies came back negative. Viral studies are still pending. Plan for kidney biopsy. As he was stable was discharged home to follow as outpatient. Today the outpatient labs showed a potassium was 5.7 and was advi sed to come to the hospital plan for placing peritoneal dialysis catheter tomorrow and initiate dialysis. Patient resting comfortably. Denies any headache. No blurred vision. No runny nose or sore throat. No cough. Appetite is okay. No difficulty swallowing. Denies chest pain or shortness of breath. No nausea vomiting. No abdominal pain. Normal bowel and bladder movements. CKD stage V Potassium 4.9 BUN 111 Creatinine 10.3 Phosphorus 5.1 Plan for peritoneal dialysis catheter tomorrow Initiation of dialysis as per nephrology Close monitor Hypertension Currently on Lasix 80 mg twice daily Will place on IV hydralazine prn. Will monitor Anemia of chronic kidney disease Hemoglobin 7.8 Blood consent obtained Stool Hemoccult Plan to discuss with heme-onc for treatment options as patient has sickle cell carrier DVT prophylaxis SCDs Disposition Med/tele Full code History of Present Illness Chief Complaint: Chronic kidney disease plan for initiating dialysis Primary Care Provider: Raissa Valenzuela MD 68-year-old male with past med history significant for hypertension, sickle cell carrier, and gout was sent in by nephro for plan for initiating peritoneal dialysis. Patient is from [facility] recently came to [facility]. Seems about 5 months ago he was told kidney function not right but then he was in [place] for last 3 months for his son's bone marrow transplant. Patient states routine checkup he was found to renal failure and was recently in the hospital. His creatinine was around 10. Renal ultrasound showed chronic medical renal disease. ANCA studies came back negative. Viral studies are still pending. Plan for kidney biopsy. As he was stable was discharged home to follow as outpatient. Today the outpatient labs showed a potassium was 5.7 and was advised to come to the hospital plan for placing peritoneal dialysis catheter tomorrow and initiate dialysis. Patient resting comfortably. Denies any headache. No blurred vision. No runny nose or sore throat. No cough. Appetite is okay. No difficulty swallowing. Denies chest pain or shortness of breath. No nausea vomiting. No abdominal pain. Normal bowel and bladder movements. Past medical history. As mentioned above Past surgical history seems none. Social history. No smoking. Alcohol rare. No drug use. . Family history. Father alive and well Allergies Allergy/AdvReac Type Severity Reaction Status Date / Time No Known Allergies Allergy Unverified 04/29/23 20:48 Home Medications Medication Instructions Recorded Confirmed Type amlodipine 5 mg tablet (Norvasc) 5 mg PO QAM #30 tabs 04/25/23 04/29/23 Rx sodium bicarbonate 650 mg tablet 1,300 mg (2 x 650 mg) PO BID 3 04/25/23 04/29/23 Rx weeks #84 tabs furosemide 40 mg tablet 80 mg PO QAM 04/29/23 04/29/23 History losartan 50 mg-hydrochlorothiazide 1 tab PO QAM 04/29/23 04/29/23 History 12.5 mg tablet Past Med/Surg History Medical History Anemia Sickle cell trait Gout HTN (hypertension) Surgical History (Updated 04/23/23 @ 19:19 by Steph Mace PA-C) No pertinent past surgical history Family History (Updated 04/23/23 @ 19:18 by Steph Mace PA-C) Father Alive and well Social History Smoking Status: Never smoker Hx Alcohol Use: Yes Alcohol Intake Frequency Comment: rare Hx Substance Use: No Preferred Language: Andorran Communication Ability: Effective Communication Ability Comment: From [facility] D[employer] Machine Feeder Required: No Beliefs That Will Affect Care: None marital status: Current Living Situation: Spouse Feels Safe at Home: Yes Assistive Devices: Glasses Review of Systems Review of Systems: All systems reviewed & are unremarkable except as noted in HPI & below Physical Exam Physical Exam: General- not in distress Head- atraumatic Eyes- PERRL. ENT- oropharynx clear Neck- supple, no JVD. Lungs- clear to auscultation no wheezing or crackles. Heart- regular rhythm; no murmur, no gallop. Abdomen- normal bowel sounds, soft, nontender, no distension. Extremities- no pretibial edema, no erythema seen. Neuro- alert, oriented x 3; PERRL no facial palsy; no dysarthria; moves extremities. Skin- warm & dry Results & Data Results & Data Vital Signs (Past 12 Hours) Vital Signs Temp Pulse Pulse Resp BP BP Pulse Ox 04/29/23 22:00 75 18 148/102 H 96 04/29/23 20:39 73 04/29/23 20:39 75 18 146/93 H 96 04/29/23 19:46 74 16 134/88 96 04/29/23 19:24 85 18 99 04/29/23 19:10 04/29/23 19:01 36.2 C L 96 H 18 183/95 H 100 O2 Del Method 04/29/23 22:00 Room Air 04/29/23 20:39 04/29/23 20:39 Room Air 04/29/23 19:46 Room Air 04/29/23 19:24 Room Air 04/29/23 19:10 Room Air 04/29/23 19:01 Room Air Diagnostic Findings Laboratory Results WBC 7.79 K/ul (4.8-10.8) 04/29/23 19:18 RBC 2.65 M/uL (4.70-6.10) L 04/29/23 19:18 Hgb 7.8 g/dl (14.0-18.0) L 04/29/23 19:18 Hct 24.4 % (42.0-52.0) L 04/29/23 19:18 MCV 92.1 fL (80.0-100.0) 04/29/23 19:18 MCH 29.4 pg (25.0-34.0) 04/29/23 19:18 MCHC 32.0 g/dL (32.0-36.0) 04/29/23 19:18 RDW Std Deviation 41.3 fL (36.4-46.3) 04/29/23 19:18 RDW Coeff of Tomasz 12.3 % (11.5-14.5) 04/29/23 19:18 Plt Count 271 K/uL (130-400) 04/29/23 19:18 MPV 10.8 fL (9.4-12.4) 04/29/23 19:18 Immature Gran % (Auto) 0.3 % 04/29/23 19:18 Neut % (Auto) 50.8 % 04/29/23 19:18 Lymph % (Auto) 37.2 % 04/29/23 19:18 [place] % (Auto) 8.9 % 04/29/23 19:18 Eos % (Auto) 2.3 % 04/29/23 19:18 Baso % (Auto) 0.5 % 04/29/23 19:18 Neut # (Auto) 3.96 K/uL (1.40-6.50) 04/29/23 19:18 Lymph # (Auto) 2.90 K/uL (1.20-3.40) 04/29/23 19:18 [place] # (Auto) 0.69 K/uL (0.11-0.59) H 04/29/23 19:18 Eos # (Auto) 0.18 K/uL (0.00-0.50) 04/29/23 19:18 Baso # (Auto) 0.04 K/uL (0.00-0.20) 04/29/23 19:18 Immature Gran # (Auto) 0.02 K/uL (0.01-0.20) 04/29/23 19:18 Hypochromasia Present 04/29/23 19:18 Microcytosis Present 04/29/23 19:18 PT 10.8 Seconds (9.0-12.0) 04/29/23 19:18 INR 1.0 (0.9-1.1) 04/29/23 19:18 APTT 29 Seconds (21-31) 04/29/23 19:18 PTT Ratio 1.0 04/29/23 19:18 Sodium 136 mmol/L (136-145) 04/29/23 19:18 Potassium 4.9 mmol/L (3.5-5.1) 04/29/23 19:18 Chloride 103 mmol/L (98-107) 04/29/23 19:18 Carbon Dioxide 20 mmol/L (21-32) L 04/29/23 19:18 Anion Gap 13 (3-11) H 04/29/23 19:18 BUN 111 mg/dl (6-23) H 04/29/23 19:18 Creatinine 10.36 mg/dl (0.6-1.4) H* 04/29/23 19:18 Est Cr Clr Drug Dosing 6.9 ml/min 04/29/23 19:18 Est GFR ( Amer) 5.4 ml/min 04/29/23 19:18 Est GFR (Non-Af Amer) 4.6 ml/min 04/29/23 19:18 BUN/Creatinine Ratio 10.7 (10-20) 04/29/23 19:18 Glucose 96 mg/dl (70-99(Fasting)) 04/29/23 19:18 Calcium 8.1 mg/dl (8.6-10.3) L 04/29/23 19:18 Phosphorus 5.1 mg/dl (2.5-4.9) H 04/29/23 19:18 Magnesium 2.4 mg/dl (1.7-2.4) 04/29/23 19:18 Total Bilirubin 0.3 mg/dl (0.2-1.0) 04/29/23 19:18 AST 14 U/L (13-39) 04/29/23 19:18 ALT 12 U/L (7-52) 04/29/23 19:18 Alkaline Phosphatase 152 U/L (34-104) H 04/29/23 19:18 Total Creatine Kinase 172 U/L (30-223) 04/29/23 19:18 Troponin I High Sens 10.4 pg/ml (0-20) 04/29/23 19:18 Total Protein 8.3 gm/dl (6.0-8.3) 04/29/23 19:18 Albumin 4.3 gm/dl (3.4-5.0) 04/29/23 19:18 Globulin 4.0 gm/dl (2.5-4.0) 04/29/23 19:18 Albumin/Globulin Ratio 1.1 (0.9-2) 04/29/23 19:18 TSH 0.863 uIu/ml (0.300-4.500) 04/29/23 19:18 Urine Color Yellow 04/29/23 19:20 Urine Appearance Clear (Clear) 04/29/23 19:20 Urine pH 6.5 (4.5-7.5) 04/29/23 19:20 Ur Specific [place] 1.010 (1.000-1.030) 04/29/23 19:20 Urine Protein 1+ (Negative) H 04/29/23 19:20 Urine Glucose (UA) Negative (Negative) 04/29/23 19:20 Urine Ketones Negative (Negative) 04/29/23 19:20 Urine Blood Trace (Negative) H 04/29/23 19:20 Urine Nitrite Negative (Negative) 04/29/23 19:20 Urine Bilirubin Negative (Negative) 04/29/23 19:20 Urine Urobilinogen Negative (Negative) 04/29/23 19:20 Ur Leukocyte Esterase Negative (Negative) 04/29/23 19:20 Urine WBC (Auto) 1-5 /hpf (0-5) 04/29/23 19:20 Urine RBC (Auto) 0-4 /hpf (0-4) 04/29/23 19:20 U Hyaline Cast (Auto) 1-5 /lpf (0-5) 04/29/23 19:20 U Epithel Cells (Auto) 0-5 /lpf (0-5) 04/29/23 19:20 Urine Bacteria (Auto) Negative (Negative) 04/29/23 19:20 Blood Type O Positive 04/29/23 20:11 Blood Type Recheck O Positive 04/29/23 20:39 Antibody Screen NEGATIVE 04/29/23 20:11 Impressions Chest X-Ray 04/29/23 19:12 XR chest 1V portable CLINICAL HISTORY: weakness TECHNIQUE: Single frontal radiograph of the chest was obtained. Comparison: Comparison is made to chest radiograph 04/23/2023 FINDINGS: Exam is limited by underpenetration. Cardiomegaly is noted. The lungs are clear. No evidence of pleural effusion or pneumothorax. IMPRESSION: No acute chest disease. ACT 112: Negative or not required by law. Electronically signed by: Jack Chavira M.D. 04/29/2023 7:32 PM ECG Additional Comments: ECG. Normal sinus rhythm with rate of 79. No significant change was found Code Status & VTE Plan VTE Prophylaxis Plan VTE Prophylaxis will be ordered: Yes
[2023-04-30] MEDS ORDERED: NITROGLYCERIN SL 0.4 MG/TAB TAB SL PRN (00:34)
[2023-04-30] MEDS ORDERED: ACETAMINOPHEN 325 MG TAB PO PRN (00:34)
[2023-04-30] MEDS ORDERED: hydrALAZINE HCL 20 MG/ML VIAL IV PRN (00:34)
[2023-04-30] MEDS ORDERED: POLYETHYLENE (MIRALAX) 17 GM PACK PO PRN (00:34)
[2023-04-30] MEDS: FUROSEMIDE 80 MG TAB PO SCH ×2 (01:11→09:22)
[2023-04-30 04:57] LABS: Hematocrit (blood only) 23.4 % (42.0-52.0); Hemoglobin 7.7 g/dl (14.0-18.0); Mean Corpuscular Hemoglobin 29.6 pg (25.0-34.0); Mean Corpuscular Hgb Conc 32.9 g/dL (32.0-36.0); Mean Platelet Volume 10.6 fL (9.4-12.4); Platelet Count 248 K/uL (130-400); RDW Coefficient of Variation 12.3 % (11.5-14.5); RDW Standard Deviation 39.8 fL (36.4-46.3); White Blood Count 6.61 K/ul (4.8-10.8)
[2023-04-30 05:18] LABS: BUN Creatinine Ratio 10.9 (10-20); Calcium 8.1 mg/dl (8.6-10.3); Creatinine Clr Calc Pharmacy 6.9 ml/min; Est GFR (African American) 5.4 ml/min; Est GFR (Non-African American) 4.7 ml/min; Magnesium 2.2 mg/dl (1.7-2.4); Potassium 4.5 mmol/L (3.5-5.1)
[2023-04-30 05:42] LABS: Basophils # (auto) 0.03 K/uL (0.00-0.20); Basophils % (auto) 0.5 %; Eosinophils # (auto) 0.23 K/uL (0.00-0.50); Eosinophils % (auto) 3.5 %; Immature Granulocytes # (auto) 0.01 K/uL (0.01-0.20); Immature Granulocytes % (auto) 0.2 %; Lymphocytes % (auto) 43.9 %; Monocytes # (auto) 0.52 K/uL (0.11-0.59); Monocytes % (auto) 7.9 %; Neutrophils # (auto) 2.92 K/uL (1.40-6.50); RBC Morphology Unremarkable
--- NOTE | 2023-04-30 08:46 | Hospitalist Progress Note ---
Date of Service April 30, 2023 Assessment & Plan (1) CKD (chronic kidney disease): Plan: 68-year-old male with past med history significant for hypertension, sickle cell carrier, and gout was sent in by nephro for plan for initiating peritoneal dialysis. Patient is from [facility] recently came to [facility]. Seems about 5 months ago he was told kidney function not right but then he was in [place] for last 3 months for his son's bone marrow transplant. Patient states routine checkup he was found to renal failure and was recently in the hospital. His creatinine was around 10. Renal ultrasound showed chronic medical renal disease. ANCA studies came back negative. Viral studies are still pending. Plan for kidney biopsy. As he was stable was discharged home to follow as outpatient. Today the outpatient labs showed a potassium was 5.7 and was adv ised to come to the hospital plan for placing peritoneal dialysis catheter tomorrow and initiate dialysis. Patient resting comfortably. Denies any headache. No blurred vision. No runny nose or sore throat. No cough. Appetite is okay. No difficulty swallowing. Denies chest pain or shortness of breath. No nausea vomiting. No abdominal pain. Normal bowel and bladder movements. CKD stage V Potassium 4.9 BUN 111 Creatinine 10.3 Phosphorus 5.1 Plan for peritoneal dialysis catheter tomorrow Initiation of dialysis as per nephrology Close monitor Hypertension Currently on Lasix 80 mg twice daily Will place on IV hydralazine prn. Will monitor Anemia of chronic kidney disease Hemoglobin 7.8 Blood consent obtained Stool Hemoccult Plan to discuss with heme-onc for treatment options as patient has sickle cell carrier DVT prophylaxis SCDs Disposition Med/tele Full code Admission and Anticipated Discharge Date Admission Date: April 29, 2023 Subjective Pt seen in follow up of viky on ckd Pt admitted so that PD catheter could be placed Results & Data Results & Data Vital Signs (Past 12 Hours) Vital Signs Pulse Pulse Resp BP BP Pulse Ox O2 Del Method 04/30/23 07:28 83 04/30/23 07:00 77 21 95 04/30/23 07:00 131/83 04/30/23 06:30 82 18 94 04/30/23 06:30 133/83 04/30/23 06:00 128/90 04/30/23 06:00 80 16 96 04/30/23 05:00 80 18 140/86 95 04/30/23 03:00 81 18 144/90 H 97 04/29/23 22:00 75 18 148/102 H 96 Room Air Laboratory Results 04/30/23 04/29/23 04/29/23 Range/Units 04:30 20:39 20:11 WBC 6.61 (4.8-10.8) K/ul RBC 2.60 L (4.70-6.10) M/uL Hgb 7.7 L (14.0-18.0) g/dl Hct 23.4 L (42.0-52.0) % MCV 90.0 (80.0-100.0) fL MCH 29.6 (25.0-34.0) pg MCHC 32.9 (32.0-36.0) g/dL RDW Std Deviation 39.8 (36.4-46.3) fL RDW Coeff of Tomasz 12.3 (11.5-14.5) % Plt Count 248 (130-400) K/uL MPV 10.6 (9.4-12.4) fL Immature Gran % (Auto) 0.2 % Neut % (Auto) 44.0 % Lymph % (Auto) 43.9 % Traverse % (Auto) 7.9 % Eos % (Auto) 3.5 % Baso % (Auto) 0.5 % Neut # (Auto) 2.92 (1.40-6.50) K/uL Lymph # (Auto) 2.90 (1.20-3.40) K/uL Traverse # (Auto) 0.52 (0.11-0.59) K/uL Eos # (Auto) 0.23 (0.00-0.50) K/uL Baso # (Auto) 0.03 (0.00-0.20) K/uL Immature Gran # (Auto) 0.01 (0.01-0.20) K/uL RBC Morphology Unremarkable Hypochromasia Microcytosis PT (9.0-12.0) Seconds INR (0.9-1.1) APTT (21-31) Seconds PTT Ratio Sodium 138 (136-145) mmol/L Potassium 4.5 (3.5-5.1) mmol/L Chloride 105 (98-107) mmol/L Carbon Dioxide 21 (21-32) mmol/L Anion Gap 12 H (3-11) BUN 112 H (6-23) mg/dl Creatinine 10.31 H* (0.6-1.4) mg/dl Est Cr Clr Drug Dosing 6.9 ml/min Est GFR ( Amer) 5.4 ml/min Est GFR (Non-Af Amer) 4.7 ml/min BUN/Creatinine Ratio 10.9 (10-20) Glucose 88 (70-99(Fasting)) mg/dl Calcium 8.1 L (8.6-10.3) mg/dl Phosphorus (2.5-4.9) mg/dl Magnesium 2.2 (1.7-2.4) mg/dl Total Bilirubin (0.2-1.0) mg/dl AST (13-39) U/L ALT (7-52) U/L Alkaline Phosphatase (34-104) U/L Total Creatine Kinase (30-223) U/L Troponin I High Sens (0-20) pg/ml Total Protein (6.0-8.3) gm/dl Albumin (3.4-5.0) gm/dl Globulin (2.5-4.0) gm/dl Albumin/Globulin Ratio (0.9-2) TSH (0.300-4.500) uIu/ml Urine Color Urine Appearance (Clear) Urine pH (4.5-7.5) Ur Specific [place] (1.000-1.030) Urine Protein (Negative) Urine Glucose (UA) (Negative) Urine Ketones (Negative) Urine Blood (Negative) Urine Nitrite (Negative) Urine Bilirubin (Negative) Urine Urobilinogen (Negative) Ur Leukocyte Esterase (Negative) Urine WBC (Auto) (0-5) /hpf Urine RBC (Auto) (0-4) /hpf U Hyaline Cast (Auto) (0-5) /lpf U Epithel Cells (Auto) (0-5) /lpf Urine Bacteria (Auto) (Negative) Blood Type O Positive Blood Type Recheck O Positive Antibody Screen NEGATIVE 04/29/23 04/29/23 Range/Units 19:20 19:18 WBC 7.79 (4.8-10.8) K/ul RBC 2.65 L (4.70-6.10) M/uL Hgb 7.8 L (14.0-18.0) g/dl Hct 24.4 L (42.0-52.0) % MCV 92.1 (80.0-100.0) fL MCH 29.4 (25.0-34.0) pg MCHC 32.0 (32.0-36.0) g/dL RDW Std Deviation 41.3 (36.4-46.3) fL RDW Coeff of Tomasz 12.3 (11.5-14.5) % Plt Count 271 (130-400) K/uL MPV 10.8 (9.4-12.4) fL Immature Gran % (Auto) 0.3 % Neut % (Auto) 50.8 % Lymph % (Auto) 37.2 % Traverse % (Auto) 8.9 % Eos % (Auto) 2.3 % Baso % (Auto) 0.5 % Neut # (Auto) 3.96 (1.40-6.50) K/uL Lymph # (Auto) 2.90 (1.20-3.40) K/uL Traverse # (Auto) 0.69 H (0.11-0.59) K/uL Eos # (Auto) 0.18 (0.00-0.50) K/uL Baso # (Auto) 0.04 (0.00-0.20) K/uL Immature Gran # (Auto) 0.02 (0.01-0.20) K/uL RBC Morphology Hypochromasia Present Microcytosis Present PT 10.8 (9.0-12.0) Seconds INR 1.0 (0.9-1.1) APTT 29 (21-31) Seconds PTT Ratio 1.0 Sodium 136 (136-145) mmol/L Potassium 4.9 (3.5-5.1) mmol/L Chloride 103 (98-107) mmol/L Carbon Dioxide 20 L (21-32) mmol/L Anion Gap 13 H (3-11) BUN 111 H (6-23) mg/dl Creatinine 10.36 H* (0.6-1.4) mg/dl Est Cr Clr Drug Dosing 6.9 ml/min Est GFR ( Amer) 5.4 ml/min Est GFR (Non-Af Amer) 4.6 ml/min BUN/Creatinine Ratio 10.7 (10-20) Glucose 96 (70-99(Fasting)) mg/dl Calcium 8.1 L (8.6-10.3) mg/dl Phosphorus 5.1 H (2.5-4.9) mg/dl Magnesium 2.4 (1.7-2.4) mg/dl Total Bilirubin 0.3 (0.2-1.0) mg/dl AST 14 (13-39) U/L ALT 12 (7-52) U/L Alkaline Phosphatase 152 H (34-104) U/L Total Creatine Kinase 172 (30-223) U/L Troponin I High Sens 10.4 (0-20) pg/ml Total Protein 8.3 (6.0-8.3) gm/dl Albumin 4.3 (3.4-5.0) gm/dl Globulin 4.0 (2.5-4.0) gm/dl Albumin/Globulin Ratio 1.1 (0.9-2) TSH 0.863 (0.300-4.500) uIu/ml Urine Color Yellow Urine Appearance Clear (Clear) Urine pH 6.5 (4.5-7.5) Ur Specific [place] 1.010 (1.000-1.030) Urine Protein 1+ H (Negative) Urine Glucose (UA) Negative (Negative) Urine Ketones Negative (Negative) Urine Blood Trace H (Negative) Urine Nitrite Negative (Negative) Urine Bilirubin Negative (Negative) Urine Urobilinogen Negative (Negative) Ur Leukocyte Esterase Negative (Negative) Urine WBC (Auto) 1-5 (0-5) /hpf Urine RBC (Auto) 0-4 (0-4) /hpf U Hyaline Cast (Auto) 1-5 (0-5) /lpf U Epithel Cells (Auto) 0-5 (0-5) /lpf Urine Bacteria (Auto) Negative (Negative) Blood Type Blood Type Recheck Antibody Screen Medications Administered Current Inpatient Medications Acetaminophen (Acetaminophen 325 Mg Tab) 650 mg PO Q4H PRN PRN Reason: Pain or Fever Stop: 05/30/23 00:33 Furosemide (Furosemide 80 Mg Tab) 80 mg PO [id number] JOAQUIN Stop: 05/30/23 00:33 Last Admin: 04/30/23 01:11 Dose: 80 mg Hydralazine HCl (Hydralazine Hcl 20 Mg/Ml Vial) 5 mg IV Q6H PRN PRN Reason: Hypertension Stop: 05/30/23 00:33 Nitroglycerin (Nitroglycerin Sl 0.4 Mg/Tab Tab) 0.4 mg SL Q5M PRN PRN Reason: Chest Pain Stop: 05/30/23 00:33 Polyethylene Glycol (Polyethylene (Miralax) 17 Gm Pack) 17 gm PO DAILY PRN PRN Reason: Constipation Stop: 05/30/23 00:33 Sodium Bicarbonate (Sodium Bicarbonate 650 Mg Tab) 1,300 mg PO BID JOAQUIN Stop: 05/30/23 08:59
[2023-04-30] MEDS ORDERED: SODIUM BICARBONATE 650 MG TAB PO SCH (09:00)
--- NOTE | 2023-04-30 10:12 | Consultation ---
Date of Consultation April 30, 2023 Assessment & Plan (1) Renal failure: Pt with ESRD and hyperkalemia, now WNL. Pt is a candidate for CAPD catheter placement, will tentatively plan for next 1-2 days. Procedure discussed with pt, he is agreeable. Renal failure chronicity: unspecified chronicity Qualified Code(s): N19 - Unspecified kidney failure History of Present Illness Reason for Consultation: ESRD Attending Physician: Yovani Rivers MD History of Present Illness 68 yo m with hx of HTN, anemia, CKD, admitted with worsening renal failure and hyperkalemia, seen in consultation today for CAPD catheter insertion. Pt states was in hospital 1-2 weeks ago for ARF, but stabilized and was d/c. 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 Pt not on HD and states he is hoping to match a family member for possible transplant, but this has not yet been confirmed. Admits fatigue, malaise. Denies ARNDT, fever, chest pain, SOB, abd pain, N/V, rest pain, claudication, other complaints. No abd surgeries or trauma. Allergies Allergy/AdvReac Type Severity Reaction Status Date / Time No Known Allergies Allergy Unverified 04/29/23 20:48 Home Medications Medication Instructions Recorded Confirmed Type amlodipine 5 mg tablet (Norvasc) 5 mg PO QAM #30 tabs 04/25/23 04/29/23 Rx sodium bicarbonate 650 mg tablet 1,300 mg (2 x 650 mg) PO BID 3 04/25/23 04/29/23 Rx weeks #84 tabs furosemide 40 mg tablet 80 mg PO QAM 04/29/23 04/29/23 History losartan 50 mg-hydrochlorothiazide 1 tab PO QAM 04/29/23 04/29/23 History 12.5 mg tablet Patient History Medical History Anemia Sickle cell trait Gout HTN (hypertension) Surgical History No pertinent past surgical history Family History Father Alive and well Social History Smoking Status: Never smoker Hx Alcohol Use: Yes Alcohol Intake Frequency Comment: rare Hx Substance Use: No Preferred Language: Georgian Communication Ability: Effective Communication Ability Comment: From Sugar Top Trimmer Required: No Beliefs That Will Affect Care: None marital status: Current Living Situation: Spouse Feels Safe at Home: Yes Assistive Devices: Glasses Review of Systems Review of Systems: All systems reviewed & are unremarkable except as noted in HPI & below Physical Exam Constitutional: WD/WN, vitals as above + obese, healthy appearing, cooperative and comfortable; not in distress ENMT: Ears: no hearing impairment Neck: normal visual inspection Respiratory: normal respiratory effort, lungs clear to auscultation Auscultation: + diminished lung sounds Cardiovascular: Rate/Rhythm: regular rate and regular rhythm Vessels: femoral pulses present, posterior tibial pulses present, dorsalis pedis pulses present and radial pulses present; + abnormal peripheral pulses Extremities: normal capillary refill and + edema Gastrointestinal (Abdomen): Inspection/Auscultation: abdomen normal to inspection and normal bowel sounds Percussion/Palpation: abdomen soft; abdomen nontender No surgical scars. supraumbilical mild diastasis Musculoskeletal: no cyanosis or clubbing, extremities motor strength 5/5 Skin: no rashes, warm and dry Neurologic: moves all extremities and awake; no focal motor deficits and not confused Psychiatric: A+Ox3, euthymic affect Results & Data Vital Signs (Past 12 Hours) Vital Signs Pulse Resp BP Pulse Ox 04/30/23 07:28 83 04/30/23 07:00 77 21 95 04/30/23 07:00 131/83 04/30/23 06:30 82 18 94 04/30/23 06:30 133/83 04/30/23 06:00 128/90 04/30/23 06:00 80 16 96 04/30/23 05:00 80 18 140/86 95 04/30/23 03:00 81 18 144/90 H 97
--- NOTE | 2023-04-30 10:15 | Nephrology Consultation ---
Date of Consultation April 30, 2023 Assessment & Plan (1) Renal failure: Has very severe renal failure and needs Dialysis. Plan is for urgent PD start. Not clear how Acute or Chronic this is as we dont have records from [facility] or [place]. he cam to [facility] just one month ago. However Dr Valle ( Surgeon) got sick. No other surgeon in [facility] to place PD cath. I have spoke with Dr Kingsley--Surgeon at [facility]. he wants patient to be transferred to [facility] today and he will do PD cath tomorrow or day after tomorrow. I have spoken with Hospitalist to make this happen YUMIKO before we run into [facility]. Patient appears stable--On RA. No e/o CHF on exam or CXR. cardiology pre eval to be done at [facility] if anesthesia or surgeon feel needed. Nothing to suggest there is acute cardiac event happening. ECHO for Murmur No major electrolyte problem. (2) Sickle cell trait: (3) HTN (hypertension): Current BP is acceptable. Continue same History of Present Illness Reason for Consultation: ESRD to Start PD as urgent Start Attending Physician: Yovani Rivers MD History of Present Illness History of Present Illness 68/M was sent to hospital by Nephrology to do urgent Start PD after PD cath placement. However Dr Valle got sick so alternate plan to be made now. Past medical history include hypertension, gout, sickle cell carrier. Patient arrived in the [place] from [facility] approximately 1 month back. Apparently he was told 5 months ago in [facility] that his kidneys were not functioning very well -details not know. For about 2 weeks prior to admission the patient had been on cataflam (an OTC NSAID from [facility] per his x 1 week) then 1 wk of naproxen for right ankle and foot pain. He is confident this pain was not a gout attack. pain has since resolved. His presenting creatinine yesterday afternoon was 10 with hemoglobin 7 range. was in hospital last week. renal function did not improve and Creat still 10. hgb < 8 No recent weight changes, no n/v, no loss of appetite, no edema, no flank pain, no change in functional status or exertional dyspnea, no chest pain, no gross hematuria or change in UOP; no dysuria or gross hematuria, no fever, no rash, no recent diarrheal illness. ROS---Actually no real Symptoms other than Some weakness. 12 Systems reviewed and negative Physical Exam Physical Exam: General- not in distress Head- atraumatic Eyes- PERRL. ENT- oropharynx clear Neck- supple, no JVD. Lungs- clear to auscultation no wheezing or crackles. Heart- regular rhythm Soft Systolic murmur Abdomen- soft, nontender, no distension. Extremities- no edema Neuro- alert, oriented x 3; PERRL no facial palsy; no dysarthria; moves extremities. Skin- warm & dry Allergies Allergy/AdvReac Type Severity Reaction Status Date / Time No Known Allergies Allergy Unverified 04/29/23 20:48 Home Medications Medication Instructions Recorded Confirmed Type amlodipine 5 mg tablet (Norvasc) 5 mg PO QAM #30 tabs 04/25/23 04/29/23 Rx sodium bicarbonate 650 mg tablet 1,300 mg (2 x 650 mg) PO BID 3 04/25/23 04/29/23 Rx weeks #84 tabs furosemide 40 mg tablet 80 mg PO QAM 04/29/23 04/29/23 History losartan 50 mg-hydrochlorothiazide 1 tab PO QAM 04/29/23 04/29/23 History 12.5 mg tablet Patient History Medical History Anemia Sickle cell trait Gout HTN (hypertension) Surgical History No pertinent past surgical history Family History Father Alive and well Social History Smoking Status: Never smoker Hx Alcohol Use: Yes Alcohol Intake Frequency Comment: rare Hx Substance Use: No Preferred Language: Monegasque Communication Ability: Effective Communication Ability Comment: From [facility] 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
--- NOTE | 2023-04-30 11:49 | Discharge Summary ---
Date of Service April 30, 2023 Admission HPI Per Admitting Provider 68-year-old male with past med history significant for hypertension, sickle cell carrier, and gout was sent in by nephro for plan for initiating peritoneal dialysis. Patient is from [facility] recently came to [facility]. Seems about 5 months ago he was told kidney function not right but then he was in [place] for last 3 months for his son's bone marrow transplant. Patient states routine checkup he was found to renal failure and was recently in the hospital. His creatinine was around 10. Renal ultrasound showed chronic medical renal disease. ANCA studies came back negative. Viral studies are still pending. Plan for kidney biopsy. As he was stable was discharged home to follow as outpatient. Today the outpatient labs showed a potassium was 5.7 and was advised to come to the hospital plan for placing peritoneal dialysis catheter tomorrow and initiate dialysis. Patient resting comfortably. Denies any headache. No blurred vision. No runny nose or sore throat. No cough. Appetite is okay. No difficulty swallowing. Denies chest pain or shortness of breath. No nausea vomiting. No abdominal pain. Normal bowel and bladder movements. Past medical history. As mentioned above Past surgical history seems none. Social history. No smoking. Alcohol rare. No drug use. . Family history. Father alive and well Admission Exam Per Admitting Provider General- not in distress Head- atraumatic Eyes- PERRL. ENT- oropharynx clear Neck- supple, no JVD. Lungs- clear to auscultation no wheezing or crackles. Heart- regular rhythm; no murmur, no gallop. Abdomen- normal bowel sounds, soft, nontender, no distension. Extremities- no pretibial edema, no erythema seen. Neuro- alert, oriented x 3; PERRL no facial palsy; no dysarthria; moves extremities. Skin- warm & dry Principal Diagnosis ESRD plan to start dialysis, needs PD catheter placed Discharge Exam General- WD/WN M in NAD Head- atraumatic Eyes- PERRL. ENT- oropharynx clear Neck- supple, no JVD. Lungs- clear to auscultation no wheezing or crackles. Heart- regular rhythm; no murmur, no gallop. Abdomen- normal bowel sounds, soft, nontender, no distension. Extremities- no pretibial edema, no erythema seen. Neuro- alert, oriented x 3; PERRL no facial palsy; no dysarthria; moves extremities. Skin- warm & dry Discharge Data Allergies Allergy/AdvReac Type Severity Reaction Status Date / Time No Known Allergies Allergy Unverified 04/29/23 20:48 Consultations 04/29/23 20:30 ED Decision to Admit Stat 04/30/23 00:34 Consult Nephrology Routine Consult Vascular Surgery Routine Procedures Performed Operation Date: 05/01/23 11:45 <No data on this case meets the specified criteria> Hospital Course (1) CKD (chronic kidney disease): 68 yo M with hypertension, sickle cell carrier, and gout was sent in by nephro for plan for initiating peritoneal dialysis. Patient is from [facility] recently came to [facility]. Seems about 5 months ago he was told kidney function not right but then he was in [place] for last 3 months for his son's bone marrow transplant. Patient states routine checkup he was found to renal failure and was recently in the hospital. His creatinine was around 10. Renal ultrasound showed chronic medical renal disease. ANCA studies came back negative. Viral studies are still pending. Plan for kidney biopsy. As he was stable was discharged home to follow as outpatient. Today the outpatient labs showed a potassium was 5.7 and was advised to come to the hospital plan for placing peritoneal dialysis catheter tomorrow and initiate dialysis. Patient resting comfortably. Denies any headache. No blurred vision. No runny nose or sore throat. No cough. Appetite is okay. No difficulty swallowing. Denies chest pain or shortness of breath. No nausea vomiting. No abdominal pain. Normal bowel and bladder movements. CKD stage V Potassium 4.9 BUN 111 Creatinine 10.3 Phosphorus 5.1 Plan for peritoneal dialysis catheter placement -unfortunately the surgeon who was planned to do the procedure is not currently available at [facility]. Therefore, patient will be transferred to [facility] for dialysis catheter placement. Initiation of dialysis as per nephrology Close monitor Hypertension Currently on Lasix 80 mg twice daily IV hydralazine prn. cont. to monitor Anemia of chronic kidney disease Hemoglobin 7.8 Blood consent obtained Stool Hemoccult Plan to discuss with heme-onc for treatment options as patient has sickle cell carrier Total Time Total Time Spent Total Time Spent (In Minutes): 40 Discharge Plan Discharge Items Patient Disposition: Transfer Acute Care Hospital Reason For Visit: ESRD PLAN TO START DIALYSIS Discharge Diagnosis: ESRD plan to start dialysis, needs PD catheter placed Condition on Discharge: Fair Activity: Per Instructions section Non-emergency contact: Hospitalist, Surgeon and Software Support Representative Call non-emergency contact if: you have any medication questions and your symptoms worsen Follow-up/Referrals: Raissa Valenzuela MD [Primary Care Provider] - Diet: Dialysis Renal and Heart Healthy Addtl Attending Provider Instructions: Patient with ESRD, in need of dialysis. PD catheter to be placed. Pt will be transferred to [facility] for the procedure as the surgeon not available at [facility]. Pending Studies at Discharge: No Stand-Alone Forms: My [facility] Skilled Items Patient informed of condition?: Yes DNR: No Discharge Level of Care: Other Communicable Disease: No Discharge Prognosis: Other Lines: Peripheral IV Urinary Catheter: No Medications and DC Order Prescriptions: Continued amlodipine [Norvasc] 5 mg Tablet 5 mg PO QAM Qty: 30 0RF sodium bicarbonate 650 mg tablet 1,300 mg PO BID 21 Days Qty: 84 0RF furosemide 40 mg tablet 80 mg PO QAM losartan-hydrochlorothiazide 50-12.5 mg tablet 1 tab PO QAM Discharge Orders: Discharge Order (Routine); Ordered 04/30/23 Ordered By: Yovani Rivers Admission Data Admit Date/Time: 04/29/23 22:16 Attending Provider: Yovani Rivers Admit Provider: Lenny Hill Primary Care Provider: Raissa Valenzuela Other Providers: Lenny Hill; Penelope Randall; Jefferson Valle
--- NOTE | 2023-04-30 16:24 | Electrocardiogram Report ---
Test Reason : Blood Pressure : / mmHG Vent. Rate : 079 BPM Atrial Rate : 079 BPM P-R Int : 122 ms QRS Dur : 084 ms QT Int : 384 ms P-R-T Axes : 033 052 051 degrees QTc Int : 440 ms Normal sinus rhythm Normal ECG When compared with ECG of 25-APR-2023 05:26, No significant change was found Confirmed by Mark Welsh ([id number] on 04/30/2023 4:23:49 PM Referred By: REFERRED SELF Confirmed By:Cecilio Welsh
[2023-05-01] MEDS ORDERED: ceFAZolin 2000MG 2,000 MG/15 ML SYR IV SCH (08:00)
== END 2023-04-30 15:19 | disposition short-term general hospital (02) | DRG 682 ==
LOC: ED 18:54 → EDINP 22:16

== ENCOUNTER 2023-09-03 16:51 | Inpatient (IN) ==
[2023-09-03] MEDS: ERTAPENEM SODIUM 500 MG in SYRINGE 0 ML IV SCH (17:37)
[2023-09-03 17:40] LABS: Eosinophils # (auto) 0.03 K/uL (0.00-0.50); Eosinophils % (auto) 0.4 %; Hematocrit (blood only) 30.6 % (42.0-52.0); Hemoglobin 10.1 g/dl (14.0-18.0); Immature Granulocytes # (auto) 0.02 K/uL (0.01-0.20); Immature Granulocytes % (auto) 0.2 %; Lymphocytes # (auto) 0.68 K/uL (1.20-3.40); Lymphocytes % (auto) 8.5 %; Mean Corpuscular Hemoglobin 27.9 pg (25.0-34.0); Mean Corpuscular Volume 84.5 fL (80.0-100.0); Monocytes # (auto) 0.94 K/uL (0.11-0.59); Monocytes % (auto) 11.7 %; Neutrophils # (auto) 6.36 K/uL (1.40-6.50); Neutrophils % (auto) 79.2 %; Platelet Count 188 K/uL (130-400); RDW Coefficient of Variation 16.6 % (11.5-14.5); RDW Standard Deviation 51.5 fL (36.4-46.3); Red Blood Count 3.62 M/uL (4.70-6.10); White Blood Count 8.03 K/ul (4.8-10.8)
[2023-09-03 18:03] LABS: Albumin Globulin Ratio 0.9 (0.9-2); Albumin Level 3.3 gm/dl (3.4-5.0); BUN Creatinine Ratio 6.2 (10-20); Bilirubin,Total 0.6 mg/dl (0.2-1.0); Calcium 8.4 mg/dl (8.6-10.3); Creatinine Clr Calc Pharmacy 6.4 ml/min; Est GFR (Non-African American) 4.3 ml/min; Globulin 3.7 gm/dl (2.5-4.0); Potassium 3.5 mmol/L (3.5-5.1)
--- NOTE | 2023-09-03 20:17 | History & Physical Report ---
Date of Service September 03, 2023 Assessment & Plan (1) UTI due to extended-spectrum beta lactamase (ESBL) producing Escherichia coli: Plan: 68-year-old male with past medical history significant for end-stage renal disease on peritoneal dialysis, history of hyperkalemia, history metabolic acidosis, hypertension, sickle cell trait who recently had prostate biopsy for elevated PSA and renal transplant candidate was in the ER on August 30 with pain at the prostates site and also hypotension found to UTI. ER gave the option of admission but patient elected to go home and was discharged on Keflex. But the cultures came back as ESBL E. coli so called for admission. Since then pain is improved. After biopsy initially had some hematuria that got resolved. Last night he had some fevers. Appetite is down today Denies any headache. No dizziness. No blurred visions. No runny nose or sore throat or cough. No difficulty swallowing. Denies chest pain or shortness of breath. Denies abdominal pain. Currently resting comfortably and hemodynamically stable. UTI due to extended spectrum beta-lactamase producing E. coli Er started on IV Invanz will be continued monitor response ESRD on peritoneal dialysis nephrology consult hypertension on Coreg and diltiazem will monitor gout on allopurinol DVT prophylaxis heparin subcu disposition medical floor full code History of Present Illness Chief Complaint: UTI with ESBL E. coli Primary Care Provider: Raissa Valenzuela MD 68-year-old male with past medical history significant for end-stage renal disease on peritoneal dialysis, history of hyperkalemia, history metabolic acidosis, hypertension, sickle cell trait who recently had prostate biopsy for elevated PSA and renal transplant candidate was in the ER on August 30 with pain at the prostates site and also hypotension found to UTI. ER gave the option of admission but patient elected to go home and was discharged on Keflex. But the cultures came back as ESBL E. coli so called for admission. Since then pain is improved. After biopsy initially had some hematuria that got resolved. Last night he had some fevers. Appetite is down today Denies any headache. No dizziness. No blurred visions. No runny nose or sore throat or cough. No difficulty swallowing. Denies chest pain or shortness of breath. Denies abdominal pain. Currently resting comfortably and hemodynamically stable. Past medical history. As mentioned above Past surgical history. Prostate biopsy. IR biopsy. Laparoscopic insertion of Paternal dialysis catheter placement. Social history. No smoking. Alcohol rare. No drug use. . Family history. Father has diabetes And hypertension. Mother has nonmalignant brain tumor.. Gait disorder. Allergies Allergy/AdvReac Type Severity Reaction Status Date / Time No Known Allergies Allergy Unverified 09/03/23 17:50 Home Medications Medication Instructions Recorded Confirmed Type allopurinol 100 mg tablet 50 mg PO QAM 09/03/23 09/03/23 History calcitriol 0.5 mcg capsule 0.5 mcg PO Q OTHER DAY 09/03/23 09/03/23 History calcium acetate(phosphat bind) 667 1,334 mg PO TIDWMEAL 09/03/23 09/03/23 History mg capsule carvedilol 12.5 mg tablet 12.5 mg PO BID 09/03/23 09/03/23 History cephalexin 500 mg capsule 500 mg PO Q6 09/03/23 09/03/23 History cinacalcet 60 mg tablet 60 mg PO Q OTHER DAY 09/03/23 09/03/23 History diltiazem HCl 120 mg 120 mg PO DAILY 09/03/23 09/03/23 History capsule,extended release 24 hr prednisone 5 mg tablet 5 mg PO DAILY 09/03/23 09/03/23 History sennosides 8.6 mg-docusate sodium 1 tab-cap PO DAILY PRN Constipation 09/03/23 09/03/23 History 50 mg tablet (Senna with Docusate Sodium) tramadol 50 mg tablet 50 mg PO BID PRN Pain 09/03/23 09/03/23 History Past Med/Surg History Problem List (Updated 09/03/23 @ 20:22 by Lenny Hill MD) UTI due to extended-spectrum beta lactamase (ESBL) producing Escherichia coli UTI (urinary tract infection) (Acute) Anemia (Acute) Renal failure (Acute) CKD (chronic kidney disease) Sickle cell trait Anemia Acute renal failure (ARF) (Acute) JASON (acute kidney injury) HTN (hypertension) Medical History Anemia Sickle cell trait Gout HTN (hypertension) Surgical History No pertinent past surgical history Family History Father Alive and well Social History Smoking Status: Never smoker Second Hand Exposure: No; Do You Dip or Chew Tobacco: No; Tobacco Cessation Education Requested by Patient: No Hx Alcohol Use: No Hx Substance Use: No Preferred Language: Wolof Communication Ability: Effective Communication Ability Comment: From [employer] Cover[employer] Installer Required: No Beliefs That Will Affect Care: None marital status: Current Living Situation: Spouse Other Information That Helps Us Care for You: No Feels Safe at Home: Yes Safety Concerns: Feels Safe At This Time Assistive Devices: Hospital Bed Review of Systems Review of Systems: All systems reviewed & are unremarkable except as noted in HPI & below Physical Exam Physical Exam: General- Not in distress. Head- atraumatic Eyes- PERRL. ENT- oropharynx clear Neck- supple, no JVD. Lungs- clear to auscultation no wheezing or crackles. Heart- regular rhythm; no murmur, no gallop. Abdomen- normal bowel sounds, soft, nontender, no distension.Peritoneal dialysis cath seen Extremities- no pretibial edema, no erythema seen Neuro- alert, oriented PERRL,no facial palsy; no dysarthria; moves extremities. Results & Data Results & Data Vital Signs (Past 12 Hours) Vital Signs Temp Pulse Pulse Resp BP BP Pulse Ox 09/03/23 19:10 93 09/03/23 18:30 69 20 113/65 93 09/03/23 17:30 75 20 114/81 93 09/03/23 17:19 72 09/03/23 16:53 36.4 C L 82 16 136/97 97 O2 Del Method 09/03/23 19:10 Room Air 09/03/23 18:30 Room Air 09/03/23 17:30 Room Air 09/03/23 17:19 09/03/23 16:53 Room Air Diagnostic Findings Laboratory Results WBC 8.03 K/ul (4.8-10.8) 09/03/23 17:15 RBC 3.62 M/uL (4.70-6.10) L 09/03/23 17:15 Hgb 10.1 g/dl (14.0-18.0) L 09/03/23 17:15 Hct 30.6 % (42.0-52.0) L 09/03/23 17:15 MCV 84.5 fL (80.0-100.0) 09/03/23 17:15 MCH 27.9 pg (25.0-34.0) 09/03/23 17:15 MCHC 33.0 g/dL (32.0-36.0) 09/03/23 17:15 RDW Std Deviation 51.5 fL (36.4-46.3) H 09/03/23 17:15 RDW Coeff of Tomasz 16.6 % (11.5-14.5) H 09/03/23 17:15 Plt Count 188 K/uL (130-400) 09/03/23 17:15 MPV 11.0 fL (9.4-12.4) 09/03/23 17:15 Immature Gran % (Auto) 0.2 % 09/03/23 17:15 Neut % (Auto) 79.2 % 09/03/23 17:15 Lymph % (Auto) 8.5 % 09/03/23 17:15 [place] % (Auto) 11.7 % 09/03/23 17:15 Eos % (Auto) 0.4 % 09/03/23 17:15 Baso % (Auto) 0.0 % 09/03/23 17:15 Neut # (Auto) 6.36 K/uL (1.40-6.50) 09/03/23 17:15 Lymph # (Auto) 0.68 K/uL (1.20-3.40) L 09/03/23 17:15 [place] # (Auto) 0.94 K/uL (0.11-0.59) H 09/03/23 17:15 Eos # (Auto) 0.03 K/uL (0.00-0.50) 09/03/23 17:15 Baso # (Auto) 0.00 K/uL (0.00-0.20) 09/03/23 17:15 Immature Gran # (Auto) 0.02 K/uL (0.01-0.20) 09/03/23 17:15 Sodium 130 mmol/L (136-145) L 09/03/23 17:15 Potassium 3.5 mmol/L (3.5-5.1) 09/03/23 17:15 Chloride 91 mmol/L (98-107) L 09/03/23 17:15 Carbon Dioxide 24 mmol/L (21-32) 09/03/23 17:15 Anion Gap 15 (3-11) H 09/03/23 17:15 BUN 69 mg/dl (6-23) H 09/03/23 17:15 Creatinine 11.05 mg/dl (0.6-1.4) H* 09/03/23 17:15 Est Cr Clr Drug Dosing 6.4 ml/min 09/03/23 17:15 Est GFR ( Amer) 5.0 ml/min 09/03/23 17:15 Est GFR (Non-Af Amer) 4.3 ml/min 09/03/23 17:15 BUN/Creatinine Ratio 6.2 (10-20) L 09/03/23 17:15 Glucose 148 mg/dl (70-99(Fasting)) H 09/03/23 17:15 Calcium 8.4 mg/dl (8.6-10.3) L 09/03/23 17:15 Total Bilirubin 0.6 mg/dl (0.2-1.0) 09/03/23 17:15 AST 19 U/L (13-39) 09/03/23 17:15 ALT 21 U/L (7-52) 09/03/23 17:15 Alkaline Phosphatase 119 U/L (34-104) H 09/03/23 17:15 Total Protein 7.0 gm/dl (6.0-8.3) 09/03/23 17:15 Albumin 3.3 gm/dl (3.4-5.0) L 09/03/23 17:15 Globulin 3.7 gm/dl (2.5-4.0) 09/03/23 17:15 Albumin/Globulin Ratio 0.9 (0.9-2) 09/03/23 17:15 Code Status & VTE Plan VTE Prophylaxis Plan VTE Prophylaxis will be ordered: Yes
[2023-09-03] MEDS ORDERED: ACETAMINOPHEN 325 MG TAB PO PRN (22:21)
[2023-09-03] MEDS ORDERED: traMADol HCL 50 MG TABLET PO PRN (22:21)
[2023-09-03] MEDS: HEPARIN SOD 5,000 UNIT/0.5 ML VIAL SQ SCH (22:49)
[2023-09-03] MEDS: carvediloL 12.5 MG TAB PO SCH (22:49)
[2023-09-04 06:09] LABS: Basophils # (auto) 0.01 K/uL (0.00-0.20); Basophils % (auto) 0.2 %; Eosinophils # (auto) 0.14 K/uL (0.00-0.50); Eosinophils % (auto) 2.4 %; Hematocrit (blood only) 28.1 % (42.0-52.0); Hemoglobin 9.2 g/dl (14.0-18.0); Immature Granulocytes # (auto) 0.02 K/uL (0.01-0.20); Immature Granulocytes % (auto) 0.3 %; Lymphocytes % (auto) 18.5 %; Mean Corpuscular Hemoglobin 27.9 pg (25.0-34.0); Mean Corpuscular Hgb Conc 32.7 g/dL (32.0-36.0); Mean Corpuscular Volume 85.2 fL (80.0-100.0); Mean Platelet Volume 11.1 fL (9.4-12.4); Monocytes # (auto) 0.89 K/uL (0.11-0.59); Neutrophils # (auto) 3.78 K/uL (1.40-6.50); Neutrophils % (auto) 63.6 %; Platelet Count 175 K/uL (130-400); RDW Coefficient of Variation 16.4 % (11.5-14.5); RDW Standard Deviation 51.8 fL (36.4-46.3); White Blood Count 5.94 K/ul (4.8-10.8)
[2023-09-04 06:27] LABS: BUN Creatinine Ratio 6.4 (10-20); Calcium 7.5 mg/dl (8.6-10.3); Creatinine Clr Calc Pharmacy 6.3 ml/min; Est GFR (African American) 4.7 ml/min; Est GFR (Non-African American) 4.1 ml/min; Magnesium 1.9 mg/dl (1.7-2.4); Potassium 3.3 mmol/L (3.5-5.1)
[2023-09-04] MEDS: CALCIUM ACETATE 667 MG CAP/TAB PO SCH (08:57)
[2023-09-04] MEDS: allopurinoL 100 MG TAB PO SCH (08:58)
[2023-09-04] MEDS: CALCITRIOL 0.25 MCG CAPSULE PO SCH (08:59)
[2023-09-04] MEDS: dilTIAZem HCL 120 MG CAPCR PO SCH (09:00)
[2023-09-04] MEDS: CINACALCET HCL 30 MG TAB PO SCH (09:00)
[2023-09-04] MEDS: predniSONE 5 MG TAB PO SCH (09:01)
[2023-09-04] MEDS: POTASSIUM CHLORIDE CRTAB 20 MEQ TABCR PO STA (10:21)
--- NOTE | 2023-09-04 10:56 | Nephrology Consultation ---
Date of Consultation September 04, 2023 Assessment & Plan (1) ESRD on peritoneal dialysis: No fluid overload and no Issues with high K. K is slightly low and will correct. Will do PD exchanges through cycler --all 1.5% for tonight 2000 ml x 4 exchanges over 10-12 hrs. His PO intake is still low but can restart his meds--binders and the Calcitriol and Cinacalcet --same dose as home BP is not low anymore. Continue same meds as home. There is nothing to suggest peritonitis related with PD. No need for PD fluid analysis. He has fluid from Sunday still and will drain that now. (2) UTI due to extended-spectrum beta lactamase (ESBL) producing Escherichia coli: On Iv ertapenem. Consider ID input also. History of Present Illness Reason for Consultation: ESRD on PD now admitted for Iv abx for ESBL --UTI Attending Physician: Shannan العراقي MD History of Present Illness 68/M with relatively new start of PD for ESRD sec to HTN since . He had prostate Biopsy done 08/29. Then came to ED on 08/30 for UTI. Had low BP that day. urine C/s done. Admission offered but he wanted to go home on oral Abx. Final urine C/s report came back as ESBL and was sent over for admission by PCP/ED. Now on Iv ertapenem. No PD last night. K is low and no e/o fluid overload or SOB. Initially had pain at the prostate area after biopsy but now pain is improved. After biopsy initially had some gross hematuria that got resolved but again had an episode earlier today. Appetite is down but still eating and drinking. Denies any headache. No dizziness. No blurred visions. No runny nose or sore throat or cough. No difficulty swallowing. Denies chest pain or shortness of breath. Denies abdominal pain. Currently resting comfortably and hemodynamically stable. His Last PD exchange was on Sunday night and had no issues at all. ROS---Also see HPI. 12 Systems reviewed and negative Physical Exam Physical Exam: General- Not in distress. Normal speech ENT- oropharynx clear. Mm moist. Neck- supple, no JVD. Lungs- clear to auscultation no wheezing or crackles. Heart- regular rhythm; no murmur, no gallop. Abdomen- normal bowel sounds, soft, nontender, no distension.Peritoneal dialysis cath clean and dry and normal looking. Extremities- no edema Neuro- alert, oriented PERRL,no facial palsy; no dysarthria; moves extremities. Allergies Allergy/AdvReac Type Severity Reaction Status Date / Time No Known Allergies Allergy Unverified 09/03/23 17:50 Home Medications Medication Instructions Recorded Confirmed Type allopurinol 100 mg tablet 50 mg PO QAM 09/03/23 09/03/23 History calcitriol 0.5 mcg capsule 0.5 mcg PO Q OTHER DAY 09/03/23 09/03/23 History calcium acetate(phosphat bind) 667 1,334 mg PO TIDWMEAL 09/03/23 09/03/23 History mg capsule carvedilol 12.5 mg tablet 12.5 mg PO BID 09/03/23 09/03/23 History cephalexin 500 mg capsule 500 mg PO Q6 09/03/23 09/03/23 History cinacalcet 60 mg tablet 60 mg PO Q OTHER DAY 09/03/23 09/03/23 History diltiazem HCl 120 mg 120 mg PO DAILY 09/03/23 09/03/23 History capsule,extended release 24 hr prednisone 5 mg tablet 5 mg PO DAILY 09/03/23 09/03/23 History sennosides 8.6 mg-docusate sodium 1 tab-cap PO DAILY PRN Constipation 09/03/23 09/03/23 History 50 mg tablet (Senna with Docusate Sodium) tramadol 50 mg tablet 50 mg PO BID PRN Pain 09/03/23 09/03/23 History Patient History Medical History Gout Surgical History No pertinent past surgical history Family History Father Alive and well Social History Smoking Status: Never smoker Second Hand Exposure: No; Do You Dip or Chew Tobacco: No; Tobacco Cessation Education Requested by Patient: No Hx Alcohol Use: No Hx Substance Use: No Preferred Language: Maltese Communication Ability: Effective Communication Ability Comment: From [employer] Problem Manager Required: No Beliefs That Will Affect Care: None marital status: Current Living Situation: Spouse Other Information That Helps Us Care for You: No Feels Safe at Home: Yes Safety Concerns: Feels Safe At This Time Assistive Devices: None Results & Data Vital Signs (Past 12 Hours) Vital Signs Temp Pulse Resp BP Pulse Ox O2 Del Method 09/04/23 07:03 36.7 C 68 16 123/81 92 Room Air Laboratory Results reviewed Diagnostic Findings reviewed
--- NOTE | 2023-09-04 13:56 | Hospitalist Progress Note ---
Date of Service September 04, 2023 Assessment & Plan (1) UTI due to extended-spectrum beta lactamase (ESBL) producing Escherichia coli: Plan: Mr. Liu is a 68-year-old male with past medical history significant for end- stage renal disease on peritoneal dialysis, history of hyperkalemia, history metabolic acidosis, hypertension, sickle cell trait who recently had prostate biopsy for elevated PSA and renal transplant candidate was in the ER on August 30 with pain in the perineum, sent home on keflex. Patient returns due to ESBL and persistent pain with hematuria. #Acute complicated cystitis due to extended spectrum beta-lactamase producing E. coli #Gross hematuria, like secondary to UTI, *resolved Notable resistance on susceptibilities Ertapenem with VIVIAN <0.5, continue ID consult given concern for prostatitis due to perineal tenderness; duration of treatment and ideal agent noting significant resistance #ESRD on peritoneal dialysis nephrology consult PD exchange via cycler Continue calcitriol and cinacalcet #hypertension on Coreg and diltiazem will monitor #gout on allopurinol DVT prophylaxis heparin subcu disposition medical floor full code Admission and Anticipated Discharge Date Admission Date: September 03, 2023 Subjective Admitted overnight Reports feeling much improved. Discuss the dysuria and pain in perineum improving notably, still mild tenderness reported denies any current fevers, chills, nausea, vomting Denies abdominal pain Physical Exam Constitutional: WD/WN, vitals as above Respiratory: normal respiratory effort, lungs clear to auscultation Cardiovascular: RRR, no murmur, no edema Gastrointestinal (Abdomen): site of pd cath without signs of surround infection, abdomen NTND Results & Data Results & Data Vital Signs (Past 12 Hours) Vital Signs Temp Pulse Resp BP Pulse Ox O2 Del Method 09/04/23 12:12 36.5 C 71 16 119/79 93 Room Air 09/04/23 07:03 36.7 C 68 16 123/81 92 Room Air Laboratory Results Short CBC 09/03/23 09/04/23 Range/Units 17:15 : WBC 8.03 5.94 (4.8-10.8) K/ul Hgb 10.1 L 9.2 L (14.0-18.0) g/dl Hct 30.6 L 28.1 L (42.0-52.0) % Plt Count 188 175 (130-400) K/uL BMP 09/03/23 09/04/23 17:15 05:27 Sodium 130 L 130 L Potassium 3.5 3.3 L Chloride 91 L 91 L Carbon Dioxide 24 28 BUN 69 H 73 H Creatinine 11.05 H* 11.49 H* D Glucose 148 H 101 H Calcium 8.4 L 7.5 L Liver Function 09/03/23 Range/Units 17:15 Total Bilirubin 0.6 (0.2-1.0) mg/dl AST 19 (13-39) U/L ALT 21 (7-52) U/L Alkaline Phosphatase 119 H (34-104) U/L Albumin 3.3 L (3.4-5.0) gm/dl Medications Administered Home Medications Medication Instructions Recorded Confirmed Last Taken allopurinol 100 mg tablet 50 mg PO QAM 09/03/23 09/03/23 Unknown calcitriol 0.5 mcg capsule 0.5 mcg PO Q OTHER DAY 09/03/23 09/03/23 09/02/23 calcium acetate(phosphat bind) 667 1,334 mg PO TIDWMEAL 09/03/23 09/03/23 Unknown mg capsule carvedilol 12.5 mg tablet 12.5 mg PO BID 09/03/23 09/03/23 Unknown cephalexin 500 mg capsule 500 mg PO Q6 09/03/23 09/03/23 09/03/23 12:00 cinacalcet 60 mg tablet 60 mg PO Q OTHER DAY 09/03/23 09/03/23 09/02/23 diltiazem HCl 120 mg 120 mg PO DAILY 09/03/23 09/03/23 Unknown capsule,extended release 24 hr prednisone 5 mg tablet 5 mg PO DAILY 09/03/23 09/03/23 Unknown sennosides 8.6 mg-docusate sodium 1 tab-cap PO DAILY PRN Constipation 09/03/23 09/03/23 Unknown 50 mg tablet (Senna with Docusate Sodium) tramadol 50 mg tablet 50 mg PO BID PRN Pain 09/03/23 09/03/23 Unknown Active Medications Generic Name Dose Route Start Last Admin Trade Name Freq PRN Reason Stop Dose Admin Allopurinol 50 mg 09/04/23 09:00 09/04/23 08:58 Allopurinol 100 Mg Tab PO 10/04/23 08:59 50 mg QAM JOAQUIN Administration Calcitriol 0.5 mcg 09/04/23 09:00 09/04/23 08:59 Calcitriol 0.25 Mcg Capsule PO 10/04/23 08:59 0.5 mcg Q2D JOAQUIN Administration Calcium Acetate 1,334 mg 09/04/23 08:00 09/04/23 12:14 Calcium Acetate 667 Mg Cap/Tab PO 10/04/23 07:59 1,334 mg TIDM JOAQUIN Administration Carvedilol 12.5 mg 09/03/23 22:21 09/04/23 08:59 Carvedilol 12.5 Mg Tab PO 10/03/23 22:20 12.5 mg BID JOAQUIN Administration Cinacalcet 60 mg 09/04/23 09:00 09/04/23 09:00 Cinacalcet Hcl 30 Mg Tab PO 10/04/23 08:59 60 mg Q2D JOAQUIN Administration Diltiazem HCl 120 mg 09/04/23 09:00 09/04/23 09:00 Diltiazem Hcl 120 Mg Capcr PO 10/04/23 08:59 120 mg DAILY JOAQUIN Administration Heparin Sodium (Porcine) 5,000 units 09/03/23 22:21 09/04/23 09:02 Heparin Sod 5,000 Unit/0.5 Ml Vial SQ 10/03/23 22:20 5,000 units Q12 JOAQUIN Administration Ertapenem 500 mg/ Syringe 5 mls @ 2 mls/min 09/03/23 17:15 09/03/23 17:37 IV 09/13/23 17:14 2 mls/min Q24H JOAQUIN Administration Prednisone 5 mg 09/04/23 09:00 09/04/23 09:01 Prednisone 5 Mg Tab PO 10/04/23 08:59 5 mg DAILY JOAQUIN Administration
[2023-09-05 06:27] LABS: Hematocrit (blood only) 27.2 % (42.0-52.0); Hemoglobin 9.1 g/dl (14.0-18.0); Mean Corpuscular Hemoglobin 28.1 pg (25.0-34.0); Mean Corpuscular Hgb Conc 33.5 g/dL (32.0-36.0); Mean Platelet Volume 10.8 fL (9.4-12.4); Platelet Count 204 K/uL (130-400); RDW Coefficient of Variation 16.1 % (11.5-14.5); RDW Standard Deviation 49.4 fL (36.4-46.3); Red Blood Count 3.24 M/uL (4.70-6.10); White Blood Count 6.58 K/ul (4.8-10.8)
[2023-09-05 06:43] LABS: BUN Creatinine Ratio 7.1 (10-20); Calcium 7.6 mg/dl (8.6-10.3); Est GFR (African American) 5.3 ml/min; Est GFR (Non-African American) 4.6 ml/min; Magnesium 1.8 mg/dl (1.7-2.4); Phosphorus 3.8 mg/dl (2.5-4.9); Potassium 3.5 mmol/L (3.5-5.1)
[2023-09-05] MEDS: GENTAMICIN SULFATE 0.1% CR 15 GM TUBE EXT PRN (08:05)
[2023-09-05] MEDS: POLYETHYLENE (MIRALAX) 17 GM PACK PO PRN (08:40)
[2023-09-05] MEDS: DOCUSATE SODIUM/SENNA 50/8.6MG TAB PO PRN (08:40)
--- NOTE | 2023-09-05 10:01 | Dialysis Progress Note ---
Date of Service September 05, 2023 Assessment & Plan Admission and Anticipated Discharge Date Admission Date: September 03, 2023 Subjective Assessment & Plan (1) ESRD on peritoneal dialysis: No fluid overload and no Issues with high K. K is slightly low and will correct. Will do PD exchanges through cycler --all 2.5% for tonight 2000 ml x 4 exchanges over 10-12 hrs. last night he had net fluid retention. will also need to treat his constipation more aggressively. His PO intake is still low but can restart his meds--binders and the Calcitriol and Cinacalcet --same dose as home BP is not low anymore. Continue same meds as home. There is nothing to suggest peritonitis related with PD. No need for PD fluid analysis. (2) UTI due to extended-spectrum beta lactamase (ESBL) producing Escherichia coli: On Iv ertapenem. Consider ID input also. S---seen for PD. had PD via cycler nighttime. he did not have any ultrafiltration in fact retained 1300 mL. also has not had any bowel movement for 3 days now and just had some medications ordered. Vital signs good. ROS---Also see HPI. 12 Systems reviewed and negative Physical Exam Physical Exam: General- Not in distress. Normal speech ENT- oropharynx clear. Mm moist. Neck- supple, no JVD. Lungs- clear to auscultation no wheezing or crackles. Heart- regular rhythm; no murmur, no gallop. Abdomen- normal bowel sounds, soft, nontender, no distension.Peritoneal dialysis cath clean and dry and normal looking. Extremities- no edema Neuro- alert, oriented PERRL,no facial palsy; no dysarthria; moves extremities. Results & Data Vital Signs (Past 12 Hours) Vital Signs Temp Pulse Resp BP Pulse Ox O2 Del Method 09/05/23 07:36 36.4 C L 65 16 132/82 94 Room Air
--- NOTE | 2023-09-05 10:20 | Hospitalist Progress Note ---
Date of Service September 05, 2023 Assessment & Plan (1) UTI due to extended-spectrum beta lactamase (ESBL) producing Escherichia coli: Plan: Mr. Liu is a 68-year-old male with past medical history significant for end- stage renal disease on peritoneal dialysis, history of hyperkalemia, history metabolic acidosis, hypertension, sickle cell trait who recently had prostate biopsy for elevated PSA and renal transplant candidate was in the ER on August 30 with pain in the perineum, sent home on keflex. Patient returns due to ESBL and persistent pain with hematuria. #Acute complicated cystitis due to extended spectrum beta-lactamase producing E. coli #Gross hematuria, like secondary to UTI, *resolved Notable resistance on susceptibilities Ertapenem with VIVIAN <0.5, continue ID consult given concern for prostatitis due to perineal tenderness; duration of treatment and ideal agent noting significant resistance awaiting ID recommendations for discharge planning #ESRD on peritoneal dialysis nephrology consult PD exchange via cycler Continue calcitriol and cinacalcet #hypertension on Coreg and diltiazem chronic, stable #gout on allopurinol #Bowel Regimen pt has not moved bowels for 2 days, per PD nurse they do not like them to go back 3 days will give dulcolax now, nurse this a.m. also gave prn senna and miralax will schedule softeners DVT prophylaxis heparin subcu disposition awaiting ID recs to determine duration of antibiotics required full code A total of 42 minutes was spent coordinating, documenting, and providing care for this patient excluding time spent in the performance of separately billed services. This included personally viewing all current laboratories and imaging studies, medication reconciliation, outpatient chart review, and discussion with specialists. Admission and Anticipated Discharge Date Admission Date: September 03, 2023 Supervising Physician Co-Signing Physician Notes pt was not seen by myself. Subjective Patient was seen and examined in room 322. Follow-up ESBL UTI. He has no acute concerns today. He has not moved his bowels in 2 days. Peritoneal dialysis nurse at bedside removing PD. He is concerned that the patient is not moved bowels in 2 days as he states they typically do not like them to go more than 3 days. Patient denies any fever, chills, sweats, lightheadedness, dizziness, chest pain, shortness of breath, nausea or vomiting. His appetite is good. He is passing flatus. He states he still produces urine. He denies any dysuria. Review of Systems Review of Systems: All systems reviewed & are unremarkable except as noted in HPI & below Physical Exam Physical Exam: Gen: WD/WN, M NAD, A&O x3 HEENT: Normocephalic, atraumatic, conjunctivae moist, sclerae anicteric, mucous membranes moist. Lung: Clear to Auscultation bilaterally, no wheezes/rales/rhonchi Heart: Regular rate, regular rhythm, no murmurs, rubs, or gallops Abdomen: Soft, NT, ND +BS x 4 PD cath site CDI Extremities: No edema Skin: Warm, no rash, negative turgor. Results & Data Results & Data Vital Signs (Past 12 Hours) Vital Signs Temp Pulse Resp BP Pulse Ox O2 Del Method 09/05/23 07:36 36.4 C L 65 16 132/82 94 Room Air Laboratory Results Short CBC 09/05/23 Range/Units 05:54 WBC 6.58 (4.8-10.8) K/ul Hgb 9.1 L (14.0-18.0) g/dl Hct 27.2 L (42.0-52.0) % Plt Count 204 (130-400) K/uL BMP 09/05/23 05:54 Sodium 132 L Potassium 3.5 Chloride 95 L Carbon Dioxide 28 BUN 74 H Creatinine 10.47 H* D Glucose 97 Calcium 7.6 L Medications Administered Current Inpatient Medications Acetaminophen (Acetaminophen 325 Mg Tab) 650 mg PO Q4H PRN PRN Reason: pain/fever Stop: 10/03/23 22:20 Allopurinol (Allopurinol 100 Mg Tab) 50 mg PO QAM JOAQUIN Stop: 10/04/23 08:59 Last Admin: 09/05/23 08:42 Dose: 50 mg Calcitriol (Calcitriol 0.25 Mcg Capsule) 0.5 mcg PO Q2D JOAQUIN Stop: 10/04/23 08:59 Last Admin: 09/04/23 08:59 Dose: 0.5 mcg Calcium Acetate (Calcium Acetate 667 Mg Cap/Tab) 1,334 mg PO TIDM JOAQUIN Stop: 10/04/23 07:59 Last Admin: 09/05/23 08:32 Dose: 1,334 mg Carvedilol (Carvedilol 12.5 Mg Tab) 12.5 mg PO BID JOAQUIN Stop: 10/03/23 22:20 Last Admin: 09/05/23 08:41 Dose: 12.5 mg Cinacalcet (Cinacalcet Hcl 30 Mg Tab) 60 mg PO Q2D JOAQIUN Stop: 10/04/23 08:59 Last Admin: 09/04/23 09:00 Dose: 60 mg Diltiazem HCl (Diltiazem Hcl 120 Mg Capcr) 120 mg PO DAILY JOAQUIN Stop: 10/04/23 08:59 Last Admin: 09/05/23 08:43 Dose: 120 mg Gentamicin Sulfate (Gentamicin Sulfate 0.1% Cr 15 Gm Tube) 1 appln EXT HS PRN PRN Reason: dialysis nurse to apply at HS after PD drg change Stop: 09/14/23 12:07 Last Admin: 09/05/23 08:05 Dose: 1 appln Heparin Sodium (Porcine) (Heparin Sod 5,000 Unit/0.5 Ml Vial) 5,000 units SQ Q12 JOAQUIN Stop: 10/03/23 22:20 Last Admin: 09/05/23 08:46 Dose: 5,000 units Ertapenem 500 mg/ Syringe 5 mls @ 2 mls/min IV Q24H JOAQUIN Stop: 09/13/23 17:14 Last Admin: 09/04/23 17:18 Dose: 2 mls/min Polyethylene Glycol (Polyethylene (Miralax) 17 Gm Pack) 17 gm PO DAILY PRN PRN Reason: Constipation Stop: 10/03/23 22:20 Last Admin: 09/05/23 08:40 Dose: 17 gm Prednisone (Prednisone 5 Mg Tab) 5 mg PO DAILY JOAQUIN Stop: 10/04/23 08:59 Last Admin: 09/05/23 08:41 Dose: 5 mg Senna/Docusate Sodium (Docusate Sodium/Senna 50/8.6mg Tab) 1 tab PO DAILY PRN PRN Reason: Constipation Stop: 10/03/23 22:20 Last Admin: 09/05/23 08:40 Dose: 1 tab Tramadol HCl (Tramadol Hcl 50 Mg Tablet) 50 mg PO BID PRN PRN Reason: Pain Stop: 10/03/23 22:20
[2023-09-05] MEDS: bisacodyL 5 MG TABEC PO ONE (12:06)
[2023-09-05] MEDS: LACTULOSE SYRUP 20 GM/30 ML UDC PO ONE (13:55)
--- NOTE | 2023-09-05 15:13 | Infectious Disease Consult ---
Date of Service September 05, 2023 Telehealth Information I performed this visit using a real-time telehealth connection between my location and the patients location ([facility]). After connecting through interactive tele-video, patient was identified by name and date of and/or wristband check.Patient (or authorized healthcare veterans service representative) was informed that this was a telemedicine visit and it was being conducted confidentially over secure lines. My office door was closed and no one else was present in the room with me.Patient (or authorized healthcare veterans service representative) provided consent to proceed with the visit, expressed an understanding of privacy and security of the telemedicine visit, and gave permission to have a hospital veterans service representative in the room in order to assist with the visit and to conduct portions of the visit, as needed. I informed the patient (or authorized healthcare veterans service representative) that I reviewed their record and presented the opportunity for them to ask any questions regarding the visit today. The patient agreed to participate. Assessment & Plan (1) UTI due to extended-spectrum beta lactamase (ESBL) producing Escherichia coli: Plan: 68-year-old male with symptoms of dysuria in the setting of recent transrectal prostate biopsy. Given this history the suspicion for prostatitis leading to acute cystitis is high especially with ESBL organisms, multiple isolates. Prostate has inadequate immune system penetration and can be very difficult to eradicate infections and may need prolonged therapy for multiple weeks. Typical antibiotics that have good penetration which include Bactrim/fluoroquinolones are unable to be used here given resistance patterns. Patient has seemingly improved on ertapenem, luckily isolates are susceptible. he is currently undergoing peritoneal dialysis and thus we will need a reduced dose of ertapenem, if he was transitioned to hemodialysis he can be given 1 g post dialysis on dialysis days. we will start treatment for approximately 4 weeks and he will follow up in the clinic. He was agreeable to the plan above. - PICC - Ertapenem 500 mg IV Q 24 hours for 4 weeks, approximate end date 08/31/23 - CBC, CMP q.week - follow up with Infectious Disease 6-8 weeks Appreciate consultation, please do not hesitate to reach out for any further questions or concerns. Micah Solorzano MD PGY4 Infectious Disease (2) Acute prostatitis: History of Present Illness History of Present Illness 68-year-old male with a past medical history of ESRD on peritoneal dialysis currently undergoing transplant possibility. Underwent prostate biopsy in [place] on 08/30/2023. Patient initially presented to the ED on 08/30 with symptoms of UTI, was discharged on Keflex, returned due to 2 separate isolates of ESBL E coli. Patient was initiated on ertapenem in his currently day 3 of therapy. Patient has been afebrile, no elevation WBC. he states once he went home from his procedure he developed dysuria, upon taking Keflex antibiotics when he was discharged his symptoms improved mildly however dysuria was still present. He states his prostate biopsy was trans rectal to evaluate for obstruction /workup for kidney transplant. Allergies Allergy/AdvReac Type Severity Reaction Status Date / Time No Known Allergies Allergy Unverified 09/03/23 17:50 Home Medications Medication Instructions Recorded Confirmed Type allopurinol 100 mg tablet 50 mg PO QAM 09/03/23 09/03/23 History calcitriol 0.5 mcg capsule 0.5 mcg PO Q OTHER DAY 09/03/23 09/03/23 History calcium acetate(phosphat bind) 667 1,334 mg PO TIDWMEAL 09/03/23 09/03/23 History mg capsule carvedilol 12.5 mg tablet 12.5 mg PO BID 09/03/23 09/03/23 History cephalexin 500 mg capsule 500 mg PO Q6 09/03/23 09/03/23 History cinacalcet 60 mg tablet 60 mg PO Q OTHER DAY 09/03/23 09/03/23 History diltiazem HCl 120 mg 120 mg PO DAILY 09/03/23 09/03/23 History capsule,extended release 24 hr prednisone 5 mg tablet 5 mg PO DAILY 09/03/23 09/03/23 History sennosides 8.6 mg-docusate sodium 1 tab-cap PO DAILY PRN Constipation 09/03/23 09/03/23 History 50 mg tablet (Senna with Docusate Sodium) tramadol 50 mg tablet 50 mg PO BID PRN Pain 09/03/23 09/03/23 History Patient History Medical History Gout Surgical History No pertinent past surgical history Family History Father Alive and well Social History Smoking Status: Never smoker Second Hand Exposure: No; Do You Dip or Chew Tobacco: No; Tobacco Cessation Education Requested by Patient: No Hx Alcohol Use: No Hx Substance Use: No Preferred Language: [place] Communication Ability: Effective Communication Ability Comment: From [employer] Required: No Beliefs That Will Affect Care: None marital status: Current Living Situation: Spouse Other Information That Helps Us Care for You: No Feels Safe at Home: Yes Safety Concerns: Feels Safe At This Time Assistive Devices: None Review of Systems CONSTITUTIONAL: Denies weight loss, fever and chills. HEENT: Denies changes in vision and hearing. RESPIRATORY: Denies SOB and cough. CV: Denies palpitations and CP. GI: Denies abdominal pain, nausea, vomiting and diarrhea. : Denies dysuria and urinary frequency. MSK: Denies myalgia and joint pain. SKIN: Denies rash and pruritus. NEUROLOGICAL: Denies headache and syncope PSYCHIATRIC: Denies recent changes in mood. Denies anxiety and depression. Results & Data Vital Signs (Past 12 Hours) Vital Signs Temp Pulse Resp BP Pulse Ox O2 Del Method 09/05/23 08:15 36.5 C 16 L 16 09/05/23 07:36 36.4 C L 65 16 132/82 94 Room Air
[2023-09-05] MEDS: DOCUSATE SODIUM/SENNA 50/8.6MG TAB PO SCH (20:14)
--- NOTE | 2023-09-05 21:12 | Emergency Department Note ---
Impression & Plan ESRD on peritoneal dialysis, UTI due to extended-spectrum beta lactamase (ESBL) producing Escherichia coli, H/O prostate biopsy ED Provider Note CHIEF COMPLAINT: Antibiotic resistant urinary tract infection HISTORY OF PRESENT ILLNESS: This 68-year-old male patient with past medical history of end-stage renal disease on peritoneal dialysis, recent prostate biopsy, and now UTI with antibiotic resistant organism presents to the emergency department after being contacted by our clinical pharmacist with the antibiotic he was prescribed, Keflex, would not cover the organism in his urine. He was advised that he will need IV antibiotics. Patient states he had a prostate biopsy several days ago at the [facility]. He was evaluated in the emergency department 2 days ago and prescribed Keflex, he believes that this is improving his symptoms. He denies any fevers, chills, chest pain, shortness of breath, vomiting or diarrhea. REVIEW OF SYSTEMS: A review of systems was performed with positives and pertinent negatives listed in the history of present illness. 10 systems were reviewed and are otherwise negative. ALLERGIES: see below MEDICATIONS: see below PMH: see below SOCIAL HISTORY: see below DDx: UTI status post prostate biopsy, prostatitis, pyelonephritis, diverticulitis, SBP among others. PHYSICAL EXAM: Vital signs reviewed. General: Generally well-appearing 68-year-old male, in no significant distress. HEENT: No scleral icterus, PERRLA, neck supple. Moist mucous membranes Cardiovascular: Regular rate and rhythm, no extra sounds. Pulmonary: Clear to auscultation bilaterally, normal work of breathing. Abdomen: Soft, slightly distended, nontender, nondistended, positive bowel sounds. Peritoneal dialysis catheter in place. Musculoskeletal: Atraumatic, no peripheral edema. Neurologic: Patient awake alert and oriented x 3, speech is clear Skin: Warm, dry, no rash EMERGENCY DEPARTMENT COURSE/MDM: This patient was evaluated and appeared to be in no significant distress. IV access was obtained and laboratory work was drawn. The patient was placed on the court monitor and noted to be in a normal sinus rhythm. Patient's laboratory work reveals a normal WBC. Previous urine culture results were reviewed, indicating an ESBL organism. The clinical pharmacist was consulted and has recommended ertapenem, renally dosed. Patient was advised of the findings and plan. Ertapenem was ordered the patient's case was discussed with the hospitalist service. Patient was made aware of the plan and agreed. MONITORING: An order for cardiac monitoring was placed and the patient is noted to be in a normal sinus rhythm at 73 beats per minute. DISPOSITION: Admission Past Med/Surg History Problem List (Updated 09/05/23 @ 21:15 by Matilda Del Castillo MD) H/O prostate biopsy (Acute) Acute prostatitis ESRD on peritoneal dialysis (Acute) UTI due to extended-spectrum beta lactamase (ESBL) producing Escherichia coli (Acute) UTI (urinary tract infection) (Acute) Anemia (Acute) Renal failure (Acute) CKD (chronic kidney disease) Sickle cell trait Anemia Acute renal failure (ARF) (Acute) JASON (acute kidney injury) HTN (hypertension) Medical History Gout Surgical History No pertinent past surgical history Family History Father Alive and well Social History Smoking Status: Never smoker Second Hand Exposure: No; Do You Dip or Chew Tobacco: No; Tobacco Cessation Education Requested by Patient: No Hx Alcohol Use: No Hx Substance Use: No Preferred Language: Japanese Communication Ability: Effective Communication Ability Comment: From [employer] Operator Required: No Beliefs That Will Affect Care: None marital status: Current Living Situation: Spouse Other Information That Helps Us Care for You: No Feels Safe at Home: Yes Safety Concerns: Feels Safe At This Time Assistive Devices: None Allergies Allergies Allergy/AdvReac Type Severity Reaction Status Date / Time No Known Allergies Allergy Unverified 09/03/23 17:50 Home Meds Home Medications Medication Instructions Recorded Confirmed allopurinol 100 mg tablet 50 mg PO QAM 09/03/23 09/03/23 calcitriol 0.5 mcg capsule 0.5 mcg PO Q OTHER DAY 09/03/23 09/03/23 calcium acetate(phosphat bind) 667 1,334 mg PO TIDWMEAL 09/03/23 09/03/23 mg capsule carvedilol 12.5 mg tablet 12.5 mg PO BID 09/03/23 09/03/23 cephalexin 500 mg capsule 500 mg PO Q6 09/03/23 09/03/23 cinacalcet 60 mg tablet 60 mg PO Q OTHER DAY 09/03/23 09/03/23 diltiazem HCl 120 mg 120 mg PO DAILY 09/03/23 09/03/23 capsule,extended release 24 hr prednisone 5 mg tablet 5 mg PO DAILY 09/03/23 09/03/23 sennosides 8.6 mg-docusate sodium 1 tab-cap PO DAILY PRN Constipation 09/03/23 09/03/23 50 mg tablet (Senna with Docusate Sodium) tramadol 50 mg tablet 50 mg PO BID PRN Pain 09/03/23 09/03/23 Results & Data (ED) Vital Signs Vital Signs - 24 hr 09/03/23 16:53 09/03/23 17:18 09/03/23 17:19 Temperature 36.4 C L Temperature Source Temporal Artery Scan Pulse Rate 82 73 72 Pulse Rate [Apical] Pulse Rate from SpO2 Sensor 73 Pulse Rhythm Regular Pulse Rhythm [Apical] Pulse Strength Normal Pulse Strength [Apical] Respiratory Rate 16 29 H Respiratory Effort / Characteristics Non-Labored Respiratory Depth Normal Respiratory Pattern Blood Pressure 136/97 Blood Pressure [Left Arm] Blood Pressure Mean 110 Blood Pressure Mean [Left Arm] Blood Pressure Position [Left Arm] Pulse Oximetry 97 94 Oxygen Delivery Method Room Air Sepsis Recent Fever Within 48 Hours Yes Sepsis New/Unexplained Change in Mental Status N/A Sepsis Action Taken by Nursing No Action Required 09/03/23 17:20 09/03/23 17:30 09/03/23 17:30 Temperature Temperature Source Pulse Rate 73 Pulse Rate [Apical] 75 Pulse Rate from SpO2 Sensor 74 Pulse Rhythm Pulse Rhythm [Apical] Regular Pulse Strength Pulse Strength [Apical] Normal Respiratory Rate 18 20 Respiratory Effort / Characteristics Non-Labored Spontaneous Respiratory Depth Normal Respiratory Pattern Regular Blood Pressure 114/81 Blood Pressure [Left Arm] 114/81 Blood Pressure Mean 86 Blood Pressure Mean [Left Arm] 92 Blood Pressure Position [Left Arm] Sitting Pulse Oximetry 97 93 Oxygen Delivery Method Room Air Sepsis Recent Fever Within 48 Hours Sepsis New/Unexplained Change in Mental Status Sepsis Action Taken by Nursing 09/03/23 17:30 09/03/23 17:40 09/03/23 17:50 Temperature Temperature Source Pulse Rate 75 76 70 Pulse Rate [Apical] Pulse Rate from SpO2 Sensor 75 75 70 Pulse Rhythm Pulse Rhythm [Apical] Pulse Strength Pulse Strength [Apical] Respiratory Rate 24 15 22 Respiratory Effort / Characteristics Respiratory Depth Respiratory Pattern Blood Pressure Blood Pressure [Left Arm] Blood Pressure Mean Blood Pressure Mean [Left Arm] Blood Pressure Position [Left Arm] Pulse Oximetry 93 96 94 Oxygen Delivery Method Sepsis Recent Fever Within 48 Hours Sepsis New/Unexplained Change in Mental Status Sepsis Action Taken by Nursing 09/03/23 18:00 09/03/23 18:00 09/03/23 18:10 Temperature Temperature Source Pulse Rate 69 69 Pulse Rate [Apical] Pulse Rate from SpO2 Sensor 69 70 Pulse Rhythm Pulse Rhythm [Apical] Pulse Strength Pulse Strength [Apical] Respiratory Rate 31 H 35 H Respiratory Effort / Characteristics Respiratory Depth Respiratory Pattern Blood Pressure 94/76 L Blood Pressure [Left Arm] Blood Pressure Mean 81 Blood Pressure Mean [Left Arm] Blood Pressure Position [Left Arm] Pulse Oximetry 92 91 Oxygen Delivery Method Sepsis Recent Fever Within 48 Hours Sepsis New/Unexplained Change in Mental Status Sepsis Action Taken by Nursing 09/03/23 18:20 09/03/23 18:30 09/03/23 18:30 Temperature Temperature Source Pulse Rate 70 70 Pulse Rate [Apical] 69 Pulse Rate from SpO2 Sensor 70 Pulse Rhythm Pulse Rhythm [Apical] Regular Pulse Strength Pulse Strength [Apical] Normal Respiratory Rate 34 H 20 30 H Respiratory Effort / Characteristics Non-Labored Spontaneous Respiratory Depth Normal Respiratory Pattern Regular Blood Pressure Blood Pressure [Left Arm] 113/65 Blood Pressure Mean Blood Pressure Mean [Left Arm] 81 Blood Pressure Position [Left Arm] Sitting Pulse Oximetry 93 93 Oxygen Delivery Method Room Air Sepsis Recent Fever Within 48 Hours Sepsis New/Unexplained Change in Mental Status Sepsis Action Taken by Nursing 09/03/23 18:30 09/03/23 18:40 09/03/23 18:50 Temperature Temperature Source Pulse Rate 72 68 Pulse Rate [Apical] Pulse Rate from SpO2 Sensor Pulse Rhythm Pulse Rhythm [Apical] Pulse Strength Pulse Strength [Apical] Respiratory Rate 22 17 Respiratory Effort / Characteristics Respiratory Depth Respiratory Pattern Blood Pressure 113/65 Blood Pressure [Left Arm] Blood Pressure Mean 83 Blood Pressure Mean [Left Arm] Blood Pressure Position [Left Arm] Pulse Oximetry Oxygen Delivery Method Sepsis Recent Fever Within 48 Hours Sepsis New/Unexplained Change in Mental Status Sepsis Action Taken by Nursing 09/03/23 19:00 09/03/23 19:00 09/03/23 19:10 Temperature Temperature Source Pulse Rate 70 Pulse Rate [Apical] Pulse Rate from SpO2 Sensor Pulse Rhythm Pulse Rhythm [Apical] Pulse Strength Pulse Strength [Apical] Respiratory Rate 25 H Respiratory Effort / Characteristics Respiratory Depth Respiratory Pattern Blood Pressure 145/95 H Blood Pressure [Left Arm] Blood Pressure Mean 106 Blood Pressure Mean [Left Arm] Blood Pressure Position [Left Arm] Pulse Oximetry 93 Oxygen Delivery Method Room Air Sepsis Recent Fever Within 48 Hours Sepsis New/Unexplained Change in Mental Status Sepsis Action Taken by Nursing 09/03/23 19:10 09/03/23 19:20 09/03/23 19:30 Temperature Temperature Source Pulse Rate 70 72 Pulse Rate [Apical] Pulse Rate from SpO2 Sensor Pulse Rhythm Pulse Rhythm [Apical] Pulse Strength Pulse Strength [Apical] Respiratory Rate 26 H 34 H Respiratory Effort / Characteristics Respiratory Depth Respiratory Pattern Blood Pressure 125/75 Blood Pressure [Left Arm] Blood Pressure Mean 107 Blood Pressure Mean [Left Arm] Blood Pressure Position [Left Arm] Pulse Oximetry Oxygen Delivery Method Sepsis Recent Fever Within 48 Hours Sepsis New/Unexplained Change in Mental Status Sepsis Action Taken by Nursing 09/03/23 19:30 09/03/23 19:40 09/03/23 19:50 Temperature Temperature Source Pulse Rate 71 70 73 Pulse Rate [Apical] Pulse Rate from SpO2 Sensor Pulse Rhythm Pulse Rhythm [Apical] Pulse Strength Pulse Strength [Apical] Respiratory Rate 34 H 19 24 Respiratory Effort / Characteristics Respiratory Depth Respiratory Pattern Blood Pressure Blood Pressure [Left Arm] Blood Pressure Mean Blood Pressure Mean [Left Arm] Blood Pressure Position [Left Arm] Pulse Oximetry Oxygen Delivery Method Sepsis Recent Fever Within 48 Hours Sepsis New/Unexplained Change in Mental Status Sepsis Action Taken by Retirement Medications Current Medication List: was personally reviewed by me Laboratory Data Attestation: I reviewed the patient's lab results. 09/05/23 05:54 09/05/23 05:54 Lab Results 09/03/23 Range/Units 17:15 WBC 8.03 (4.8-10.8) K/ul RBC 3.62 L (4.70-6.10) M/uL Hgb 10.1 L (14.0-18.0) g/dl Hct 30.6 L (42.0-52.0) % MCV 84.5 (80.0-100.0) fL MCH 27.9 (25.0-34.0) pg MCHC 33.0 (32.0-36.0) g/dL RDW Std Deviation 51.5 H (36.4-46.3) fL RDW Coeff of Tomasz 16.6 H (11.5-14.5) % Plt Count 188 (130-400) K/uL MPV 11.0 (9.4-12.4) fL Immature Gran % (Auto) 0.2 % Neut % (Auto) 79.2 % Lymph % (Auto) 8.5 % [place] % (Auto) 11.7 % Eos % (Auto) 0.4 % Baso % (Auto) 0.0 % Neut # (Auto) 6.36 (1.40-6.50) K/uL Lymph # (Auto) 0.68 L (1.20-3.40) K/uL [place] # (Auto) 0.94 H (0.11-0.59) K/uL Eos # (Auto) 0.03 (0.00-0.50) K/uL Baso # (Auto) 0.00 (0.00-0.20) K/uL Immature Gran # (Auto) 0.02 (0.01-0.20) K/uL Sodium 130 L (136-145) mmol/L Potassium 3.5 (3.5-5.1) mmol/L Chloride 91 L (98-107) mmol/L Carbon Dioxide 24 (21-32) mmol/L Anion Gap 15 H (3-11) BUN 69 H (6-23) mg/dl Creatinine 11.05 H* (0.6-1.4) mg/dl Est Cr Clr Drug Dosing 6.4 ml/min Est GFR ( Amer) 5.0 ml/min Est GFR (Non-Af Amer) 4.3 ml/min BUN/Creatinine Ratio 6.2 L (10-20) Glucose 148 H (70-99(Fasting)) mg/dl Calcium 8.4 L (8.6-10.3) mg/dl Total Bilirubin 0.6 (0.2-1.0) mg/dl AST 19 (13-39) U/L ALT 21 (7-52) U/L Alkaline Phosphatase 119 H (34-104) U/L Total Protein 7.0 (6.0-8.3) gm/dl Albumin 3.3 L (3.4-5.0) gm/dl Globulin 3.7 (2.5-4.0) gm/dl Albumin/Globulin Ratio 0.9 (0.9-2) Administered Medications Allopurinol (Allopurinol 100 Mg Tab) 50 mg PO QAM JOAQUIN Stop: 10/04/23 08:59 Last Admin: 09/05/23 08:42 Dose: 50 mg Documented By: Admin: 09/04/23 08:58 Dose: 50 mg Documented By: CARLENE Calcitriol (Calcitriol 0.25 Mcg Capsule) 0.5 mcg PO Q2D JOAQUIN Stop: 10/04/23 08:59 Last Admin: 09/04/23 08:59 Dose: 0.5 mcg Documented By: CARLENE Calcium Acetate (Calcium Acetate 667 Mg Cap/Tab) 1,334 mg PO TIDM JOAQUIN Stop: 10/04/23 07:59 Last Admin: 09/05/23 16:59 Dose: 1,334 mg Documented By: Admin: 09/05/23 12:06 Dose: 1,334 mg Documented By: Admin: 09/05/23 08:32 Dose: 1,334 mg Documented By: Admin: 09/04/23 17:17 Dose: 1,334 mg Documented By: Admin: 09/04/23 12:14 Dose: 1,334 mg Documented By: Admin: 09/04/23 08:57 Dose: 1,334 mg Documented By: CARLENE Carvedilol (Carvedilol 12.5 Mg Tab) 12.5 mg PO BID JOAQUIN Stop: 10/03/23 22:20 Last Admin: 09/05/23 20:15 Dose: 12.5 mg Documented By: Admin: 09/05/23 08:41 Dose: 12.5 mg Documented By: Admin: 09/04/23 21:55 Dose: 12.5 mg Documented By: Admin: 09/04/23 08:59 Dose: 12.5 mg Documented By: Admin: 09/03/23 22:49 Dose: 12.5 mg Documented By: POP Cinacalcet (Cinacalcet Hcl 30 Mg Tab) 60 mg PO Q2D JOAQUIN Stop: 10/04/23 08:59 Last Admin: 09/04/23 09:00 Dose: 60 mg Documented By: CARLENE Diltiazem HCl (Diltiazem Hcl 120 Mg Capcr) 120 mg PO DAILY JOAQUIN Stop: 10/04/23 08:59 Last Admin: 09/05/23 08:43 Dose: 120 mg Documented By: Admin: 09/04/23 09:00 Dose: 120 mg Documented By: CARLENE Gentamicin Sulfate (Gentamicin Sulfate 0.1% Cr 15 Gm Tube) 1 appln EXT HS PRN PRN Reason: dialysis nurse to apply at HS after PD drg change Stop: 09/14/23 12:07 Last Admin: 09/05/23 18:07 Dose: 1 appln Documented By: Admin: 09/05/23 08:05 Dose: 1 appln Documented By: TIARA Heparin Sodium (Porcine) (Heparin Sod 5,000 Unit/0.5 Ml Vial) 5,000 units SQ Q12 JOAQUIN Stop: 10/03/23 22:20 Last Admin: 09/05/23 20:14 Dose: 5,000 units Documented By: Admin: 09/05/23 08:46 Dose: 5,000 units Documented By: Admin: 09/04/23 21:55 Dose: 5,000 units Documented By: Admin: 09/04/23 09:02 Dose: 5,000 units Documented By: Admin: 09/03/23 22:49 Dose: 5,000 units Documented By: POP Ertapenem 500 mg/ Syringe 5 mls @ 2 mls/min IV Q24H JOAQUIN Stop: 09/13/23 17:14 Last Admin: 09/05/23 18:20 Dose: 2 mls/min Documented By: Admin: 09/04/23 17:18 Dose: 2 mls/min Documented By: Admin: 09/03/23 17:37 Dose: 2 mls/min Documented By: ASHVIN Polyethylene Glycol (Polyethylene (Miralax) 17 Gm Pack) 17 gm PO DAILY PRN PRN Reason: Constipation Stop: 10/03/23 22:20 Last Admin: 09/05/23 08:40 Dose: 17 gm Documented By: CARLENE Prednisone (Prednisone 5 Mg Tab) 5 mg PO DAILY JOAQUIN Stop: 10/04/23 08:59 Last Admin: 09/05/23 08:41 Dose: 5 mg Documented By: Admin: 09/04/23 09:01 Dose: 5 mg Documented By: CARLENE Senna/Docusate Sodium (Docusate Sodium/Senna 50/8.6mg Tab) 1 tab PO BID JOAQUIN Stop: 10/05/23 20:59 Last Admin: 09/05/23 20:14 Dose: 1 tab Documented By: POP Discontinued Medications Bisacodyl (Bisacodyl 5 Mg Tabec) 5 mg PO NOW ONE Stop: 09/05/23 10:31 Last Admin: 09/05/23 12:06 Dose: 5 mg Documented By: CARLENE Lactulose (Lactulose Syrup 20 Gm/30 Ml Udc) 20 gm PO NOW ONE Stop: 09/05/23 13:29 Last Admin: 09/05/23 13:55 Dose: 20 gm Documented By: CARLENE Potassium Chloride (Potassium Chloride Crtab 20 Meq Tabcr) 40 meq PO NOW STA Stop: 09/04/23 09:20 Last Admin: 09/04/23 10:21 Dose: 40 meq Documented By: CARLENE Senna/Docusate Sodium (Docusate Sodium/Senna 50/8.6mg Tab) 1 tab PO DAILY PRN PRN Reason: Constipation Stop: 10/03/23 22:20 Last Admin: 09/05/23 08:40 Dose: 1 tab Documented By: CARLENE Discharge Plan Visit Data Chief Complaint: Illness Stated Complaint: ILLNESS ED Provider: Matilda Del Castillo Discharge Problem: ESRD on peritoneal dialysis, UTI due to extended-spectrum beta lactamase (ESBL) producing Escherichia coli, H/O prostate biopsy Patient Disposition: Admitted As Inpatient Discharge Instructions Interventions: ED Discharge Assessment Last Done: 09/03/23 21:45
[2023-09-06 06:56] LABS: Hematocrit (blood only) 25.6 % (42.0-52.0); Hemoglobin 8.6 g/dl (14.0-18.0); Mean Corpuscular Hgb Conc 33.6 g/dL (32.0-36.0); Mean Corpuscular Volume 83.4 fL (80.0-100.0); Mean Platelet Volume 10.1 fL (9.4-12.4); Platelet Count 208 K/uL (130-400); RDW Standard Deviation 48.6 fL (36.4-46.3); Red Blood Count 3.07 M/uL (4.70-6.10); White Blood Count 6.83 K/ul (4.8-10.8)
[2023-09-06 07:22] LABS: BUN Creatinine Ratio 6.9 (10-20); Calcium 7.7 mg/dl (8.6-10.3); Creatinine Clr Calc Pharmacy 7.2 ml/min; Est GFR (African American) 5.5 ml/min; Est GFR (Non-African American) 4.8 ml/min; Potassium 3.6 mmol/L (3.5-5.1)
--- NOTE | 2023-09-06 14:24 | Dialysis Progress Note ---
Date of Service September 06, 2023 Assessment & Plan Admission and Anticipated Discharge Date Admission Date: September 03, 2023 Subjective Assessment & Plan (1) ESRD on peritoneal dialysis: No fluid overload and no Issues with high K. K is slightly low and will correct. Will do PD exchanges through cycler --half 2.5% and half 4.25% for tonight 2000 ml x 4 exchanges last night he had net fluid retention of 110 ml. will also need to treat his constipation more aggressively. His PO intake is still low but can restart his meds--binders and the Calcitriol and Cinacalcet --same dose as home BP is not low anymore. Continue same meds as home. There is nothing to suggest peritonitis related with PD. No need for PD fluid analysis. (2) UTI due to extended-spectrum beta lactamase (ESBL) producing Escherichia coli: On Iv ertapenem. ID note reviewed. Ertapenem to continue for few more weeks as it is felt he has Prostatitis/UTI with ESBL. This is much harder to treat. S---seen for PD. Had PD via cycler nighttime. he did not have any ultrafiltration in fact retained 110 mL. Did have bowel movement after meds. Also machine alarmed a lot including power outage last night. ID also reviewed his Abx. Vital signs good. ROS---Also see HPI. 12 Systems reviewed and negative Physical Exam Physical Exam: General- Not in distress. Normal speech ENT- oropharynx clear. Mm moist. Neck- supple, no JVD. Lungs- clear to auscultation no wheezing or crackles. Heart- regular rhythm; no murmur, no gallop. Abdomen- normal bowel sounds, soft, nontender, no distension.Peritoneal dialysis cath clean and dry and normal looking. Extremities- no edema Neuro- alert, oriented PERRL,no facial palsy; no dysarthria; moves extremities. Results & Data Vital Signs (Past 12 Hours) Vital Signs Temp Pulse Pulse Resp BP Pulse Ox O2 Del Method 09/06/23 08:15 36.9 C 76 18 09/06/23 07:32 37.0 C 75 18 146/84 H 94 Room Air
--- NOTE | 2023-09-06 15:00 | Hospitalist Progress Note ---
Date of Service September 06, 2023 Assessment & Plan (1) UTI due to extended-spectrum beta lactamase (ESBL) producing Escherichia coli: Plan: 68-year-old male w/ PMH of end-stage renal disease on peritoneal dialysis, hyperkalemia, metabolic acidosis, hypertension, sickle cell trait who recently had prostate biopsy for elevated PSA and renal transplant candidate was in the ER on August 30 with pain in the perineum, sent home on keflex. Patient returns due to ESBL and persistent pain with hematuria. He is being managed for the following: #Acute complicated cystitis due to extended spectrum beta-lactamase producing E. coli #Gross hematuria, like secondary to UTI, *resolved Patient noted to have ESBL UTI, ID evaluated, on ertapenem 500 mg IV every 24 hours for 4 weeks, EOT 10/01/2023. CBC and CMP weekly while on IV antibiotic, follow-up with infectious disease in 6 to 8 weeks time. c/w probiotic. PICC line 09/05 - consent obtained, order placed Utilize line prior to dc. #ESRD on peritoneal dialysis nephrology consult PD exchange via cycler Continue calcitriol and cinacalcet #hypertension on Coreg and diltiazem chronic, stable #gout on allopurinol DVT prophylaxis: heparin subcu disposition: can dc likely stephany. full code Admission and Anticipated Discharge Date Admission Date: September 03, 2023 Subjective Patient was seen and examined at bedside. Patient was lying in bed, on room air, NAD, resting comfortably. Patient reports eating okay and moving bowels okay, denies any pain or headache or dizziness or febrile illness. Patient reports feeling better. Physical Exam Physical Exam: Gen: WD/WN, M NAD, A&O x3 HEENT: Normocephalic, atraumatic, conjunctivae moist, sclerae anicteric, mucous membranes moist. Lung: Clear to Auscultation bilaterally, no wheezes/rales/rhonchi Heart: Regular rate, regular rhythm, no murmurs, rubs, or gallops Abdomen: Soft, NT, ND +BS x 4 PD cath site CDI Extremities: No edema Skin: Warm, no rash, negative turgor. Results & Data Results & Data Vital Signs (Past 12 Hours) Vital Signs Temp Pulse Pulse Resp BP Pulse Ox O2 Del Method 09/06/23 14:46 36.6 C 74 16 144/91 H 94 Room Air 09/06/23 08:15 36.9 C 76 18 09/06/23 07:32 37.0 C 75 18 146/84 H 94 Room Air
[2023-09-06] MEDS: ADVANCED PROBIOTIC 625 MG CAPSULE PO SCH (15:32)
[2023-09-07 07:32] LABS: Magnesium 1.8 mg/dl (1.7-2.4); Potassium 3.6 mmol/L (3.5-5.1)
[2023-09-07 07:55] LABS: BUN Creatinine Ratio 6.5 (10-20); Creatinine Clr Calc Pharmacy 6.8 ml/min; Est GFR (African American) 5.2 ml/min; Est GFR (Non-African American) 4.5 ml/min; Phosphorus 4.3 mg/dl (2.5-4.9)
[2023-09-07 07:57] VITALS: RESP 15; O2SAT 94
--- NOTE | 2023-09-07 10:04 | Dialysis Progress Note ---
Date of Service September 07, 2023 Assessment & Plan Admission and Anticipated Discharge Date Admission Date: September 03, 2023 Subjective Assessment & Plan (1) ESRD on peritoneal dialysis: No fluid overload and no Issues with high K. Will do PD exchanges through cycler --half 2.5% and half 4.25% for tonight 2000 ml x 4 exchanges last night he finally had some UF 1200 ml with half 2.5% and half 4.25%. will update PD nurse of Fernando about the Alarms and difficulty with UF. will also need to treat his constipation more aggressively. His PO intake is still low but can restart his meds--binders and the Calcitriol and Cinacalcet --same dose as home BP is not low anymore. Continue same meds as home. (2) UTI due to extended-spectrum beta lactamase (ESBL) producing Escherichia coli: On Iv ertapenem. ID note reviewed. Ertapenem to continue for 4 weeks as it is felt he has Prostatitis/UTI with ESBL. This is much harder to treat. has Midline S---seen for PD. Had PD via cycler NightTime. Finally had some ultrafiltration of about 1200 mL. Did have bowel movement after meds. Also machine alarmed a lot including last night. Vital signs good. Has a midline for Iv Abx ROS---Also see HPI. 12 Systems reviewed and negative Physical Exam Physical Exam: General- Not in distress. Normal speech ENT- oropharynx clear. Mm moist. Neck- supple, no JVD. Lungs- clear to auscultation no wheezing or crackles. Heart- regular rhythm; no murmur, no gallop. Abdomen- normal bowel sounds, soft, nontender, no distension.Peritoneal dialysis cath clean and dry and normal looking. Extremities- no edema Neuro- alert, oriented PERRL,no facial palsy; no dysarthria; moves extremities. Results & Data Vital Signs (Past 12 Hours) Vital Signs Temp Pulse Pulse Pulse Resp BP Pulse Ox 09/07/23 08:28 36.9 C 76 15 09/07/23 07:53 36.9 C 76 15 137/87 94 09/07/23 07:33 36.9 C 73 16 138/89 96 O2 Del Method 09/07/23 08:28 09/07/23 07:53 Room Air 09/07/23 07:33 Room Air
--- NOTE | 2023-09-07 12:56 | Discharge Summary ---
Date of Service September 07, 2023 Admission HPI Per Admitting Provider 68-year-old male with past medical history significant for end-stage renal disease on peritoneal dialysis, history of hyperkalemia, history metabolic acidosis, hypertension, sickle cell trait who recently had prostate biopsy for elevated PSA and renal transplant candidate was in the ER on August 30 with pain at the prostates site and also hypotension found to UTI. ER gave the option of admission but patient elected to go home and was discharged on Keflex. But the cultures came back as ESBL E. coli so called for admission. Since then pain is improved. After biopsy initially had some hematuria that got resolved. Last night he had some fevers. Appetite is down today Denies any headache. No dizziness. No blurred visions. No runny nose or sore throat or cough. No difficulty swallowing. Denies chest pain or shortness of breath. Denies abdominal pain. Currently resting comfortably and hemodynamically stable. Past medical history. As mentioned above Past surgical history. Prostate biopsy. IR biopsy. Laparoscopic insertion of Paternal dialysis catheter placement. Social history. No smoking. Alcohol rare. No drug use. . Family history. Father has diabetes And hypertension. Mother has nonmalignant brain tumor.. Gait disorder. Admission Exam Per Admitting Provider General- Not in distress. Head- atraumatic Eyes- PERRL. ENT- oropharynx clear Neck- supple, no JVD. Lungs- clear to auscultation no wheezing or crackles. Heart- regular rhythm; no murmur, no gallop. Abdomen- normal bowel sounds, soft, nontender, no distension.Peritoneal dialysis cath seen Extremities- no pretibial edema, no erythema seen Neuro- alert, oriented PERRL,no facial palsy; no dysarthria; moves extremities. Principal Diagnosis UTI due to ESBL producing E. coli Gross hematuria secondary to UTI Discharge Exam Gen: WD/WN, M NAD, A&O x3 HEENT: Normocephalic, atraumatic, conjunctivae moist, sclerae anicteric, mucous membranes moist. Lung: Clear to Auscultation bilaterally, no wheezes/rales/rhonchi , no decreased breath sounds noted bilaterally. equal breath sounds b/l. Heart: Regular rate, regular rhythm, no murmurs, rubs, or gallops Abdomen: Soft, NT, ND +BS x 4 PD cath site CDI Extremities: No edema Skin: Warm, no rash, negative turgor. Discharge Data Allergies Allergy/AdvReac Type Severity Reaction Status Date / Time No Known Allergies Allergy Unverified 09/03/23 17:50 Consultations 09/03/23 19:59 ED Decision to Admit Stat 09/04/23 08:00 Consult Nephrology Routine 09/04/23 14:06 Consult Infectious Diseases Routine Hospital Course (1) UTI due to extended-spectrum beta lactamase (ESBL) producing Escherichia coli: 68-year-old male w/ PMH of end-stage renal disease on peritoneal dialysis, hyperkalemia, metabolic acidosis, hypertension, sickle cell trait who recently had prostate biopsy for elevated PSA and renal transplant candidate was in the ER on August 30 with pain in the perineum, sent home on keflex. Patient returns due to ESBL and persistent pain with hematuria. He was managed for the following: #Acute complicated cystitis due to extended spectrum beta-lactamase producing E. coli #Gross hematuria, like secondary to UTI, *resolved Patient noted to have ESBL UTI, ID evaluated, on ertapenem 500 mg IV every 24 hours for 4 weeks, EOT 10/01/2023. CBC and CMP weekly while on IV antibiotic, follow-up with infectious disease in 6 to 8 weeks time. c/w probiotic. PICC line 30 - pt getting iv antibiotic w/ no problem, no chest pain or sob. #ESRD on peritoneal dialysis nephrology consult PD exchange via cycler Continue calcitriol and cinacalcet #hypertension on Coreg and diltiazem chronic, stable #gout on allopurinol DVT prophylaxis: heparin subcu disposition: can dc likely stephany. full code Patient is being discharged to home with home health with following instruction at the point of discharge: Follow-up with your primary care physician within a week time and likely you will need labs CBC/CMP/magnesium/phosphorus. You are being discharged on IV ertapenem 500 mg every 24 hours for total of 4 weeks with end of treatment date being 10/01/2023. You will need weekly CBC and CMP while on IV antibiotic, Coordinate with your PCP office to set up the test. Follow-up with infectious disease in 6 to 8 weeks time. Continue with probiotics Take your medications as prescribed. Please make sure that you are able to get your medications today by calling your pharmacy before you leave the hospital so that your treatment continuity is not broken. Home Health Attestation I certify that this patient is under my care and that I, or a physicians health information assistant working with me, had a face to-face encounter that meets the home health [id number] encounter requirements with this patient. The encounter with the patient was in whole, or in part, for the following medical condition, which is the primary reason for home health care (list medical condition): I certify that, based on my findings, the following services are medically necessary home health services: My clinical findings support the need for the above services because: Skilled Nsg Instruction New Medications Further, I certify that my clinical findings support that this patient is homebound (i.e. absences from home require considerable and taxing effort and are for medical reasons or caodaism services or infrequently or of short duration when for other reasons) because: Certification for Home Health Services: Based on the above findings, I certify that this patient is confined to the home and needs intermittent custodial care, physical therapy and/or speech therapy or continues to need occupational therapy. The patient is under my care, and I have initiated the establishment of the plan of care. This patient will be followed by a physician who will periodically review the plan of care. Total Time Total Time Spent Total Time Spent (In Minutes): 45 Discharge Plan Discharge Items Patient Disposition: Home - Home Health Services Reason For Visit: ESBL UTI Discharge Diagnosis: UTI due to ESBL producing E. coli Gross hematuria secondary to UTI Activity: Resume your previous activity Non-emergency contact: Primary Care Provider Call non-emergency contact if: you have any medication questions, your symptoms worsen and your temperature is above 101.5 Follow-up/Referrals: Raissa Valenzuela MD [Primary Care Provider] - (Date & Time 09/11/2023 1:00 PM Provider Raissa Valenzuela MD Department Family Practice [facility] ) Diet: Heart Healthy Addtl Attending Provider Instructions: Follow-up with your primary care physician within a week time and likely you will need labs CBC/CMP/magnesium/phosphorus. You are being discharged on IV ertapenem 500 mg every 24 hours for total of 4 weeks with end of treatment date being 10/01/2023. You will need weekly CBC and CMP while on IV antibiotic, Coordinate with your PCP office to set up the test. Follow-up with infectious disease in 6 to 8 weeks time. Continue with probiotics Take your medications as prescribed. Please make sure that you are able to get your medications today by calling your pharmacy before you leave the hospital so that your treatment continuity is not broken. Pending Studies at Discharge: No Stand-Alone Forms: [facility], Smoking Cessation Medications and DC Order Prescriptions: New Advanced Probiotic 625 mg (10 billion cell) Capsule 1 cap PO DAILY 28 Days Qty: 28 0RF ertapenem 1 gram recon soln 500 mg IV DAILY 24 Days Qty: 24 0RF Continued carvedilol 12.5 mg tablet 12.5 mg PO BID sennosides-docusate sodium [Senna with Docusate Sodium] 8.6-50 mg Tablet 1 tab-cap PO DAILY PRN (Reason: Constipation) prednisone 5 mg Tablet 5 mg PO DAILY allopurinol 100 mg tablet 50 mg PO QAM tramadol 50 mg tablet 50 mg PO BID PRN (Reason: Pain) calcitriol 0.5 mcg capsule 0.5 mcg PO Q OTHER DAY diltiazem HCl 120 mg capsule,extended release 24hr 120 mg PO DAILY cinacalcet 60 mg tablet 60 mg PO Q OTHER DAY calcium acetate(phosphat bind) 667 mg capsule 1,334 mg PO TIDWMEAL Discontinued cephalexin 500 mg capsule 500 mg PO Q6 Discharge Orders: Discharge Order (Routine); Ordered 09/07/23 Ordered By: Kyaw Mcbride Admission Data Admit Date/Time: 09/03/23 20:05 Attending Provider: Kyaw Mcbride Admit Provider: Lenny [place] Primary Care Provider: Raissa Valenzuela Other Providers: Agnes Narvaez; Penelope Randall; Dontae Arriaga; Linda Corea; Srini Kinney I.; Lalo Rogers II; Emelina Orr; Navin Wiley; Raman Rios; Ranjana Knapp; Micah Solorzano; [facility]
[2023-09-07 15:42] VITALS: BP 137/85; PULSE 71; TEMP 98.4
== END 2023-09-07 18:08 | disposition home health service (06) | DRG 689 ==
LOC: ED 16:51 → SUATTDRO 20:05 → 3E 20:05